=== PATIENT | male | born 1960 | race Caucasian/White ===

== ENCOUNTER 2018-08-05 13:12 | Emergency (ER) | payer OTHER, SELFPAY ==
[2018-08-05 13:13] VITALS: BP 129/72; PULSE 88; RESP 16; TEMP 37.1; O2SAT 94; BMI 33.2
--- NOTE | 2018-08-05 13:47 | CT_ITS ---
STUDY: CT ABDOMEN AND PELVIS WITH CONTRAST REASON FOR EXAM: Male, 58 years old. Lower abdominal pain RADIATION DOSAGE (If Supplied By Facility): CTDIvol = ( 15.02 ) mGy, DLP = ( 1220.42 ) mGycm TECHNIQUE: Transaxial images were obtained from the dome of the diaphragm to the symphysis pubis without oral contrast. 100 IV Isovue 300 was administered. Sagittal and coronal images were reconstructed. Individualized dose optimization techniques were used for this CT. COMPARISON: None. FINDINGS: The visualized lung bases are unremarkable. The visualized portions of the heart are within normal limits. There is decreased attenuation of the liver consistent with steatosis. Normal gallbladder and extrahepatic biliary system. Normal spleen. Normal pancreas. Normal bilateral adrenal glands. Normal right kidney. Normal left kidney. Normal visualized stomach. Normal small intestine. Normal colon. There is marked diffuse constipation. There is non-visualization of the appendix. Mild aortic calcifications. Normal inferior vena cava. Normal retroperitoneum. Normal urinary bladder. Normal abdominal wall. Normal osseous structures. CT/Abdomen/Pelvis W IV Cont ONLY IMPRESSION: No acute abdominal or pelvic pathology. Marked diffuse constipation. Electronically Signed: Maximus Venegas, at 15:43 EDT Tel , Service support ,
[2018-08-05] MEDS: Ondansetron 4 MG/2 ML Vial IV (14:15)
[2018-08-05] MEDS: Morphine 4 MG/ML Syringe IV (14:15)
[2018-08-05] MEDS: 0.9% Normal Saline 1,000 ML 1000 ML IV (14:15)
[2018-08-05 14:31] LABS: Absolute Lymphocyte Count 1.92 X10^3/ul (0.83-4.51); Absolute Neutrophil Count 5.5 X10^3/uL (2.0-7.7); Basophil# 0.03 X10^3/uL; Basophil% 0.4 % (0-1); Eosinophils% 1.2 % (0-5); Hematocrit 47.3 % (40-54); Hemoglobin 15.1 g/dl (13.0-16.5); Lymphocyte # 1.92 X10^3/ul (4.0); Lymphocyte % 23.5 % (19-41); Mean Corp Hgb Conc 31.9 g/gl (32-36); Mean Corpuscular Hgb 24.2 pg (27.0-32.0); Mean Corpuscular Volume 75.9 fL (80-94); Mean Platelet Vol. 9.3 fl (6.2-12.0); Monocyte# 0.66 X10^3/uL; Monocyte% 8.1 % (0-10); Neutrophil # 5.45 X10^3/uL (2.7-7.7); Neutrophil % 66.7 % (47-70); POSITIVE COUNT NO; POSITIVE DIFFERENTIAL NO; POSITIVE MORPHOLOGY NO; Platelet Count 276 K/mm3 (150-450); RBC Distribution Width SD 49.9 fl (35.1-43.9); Red Blood Count 6.23 M/mm3 (4.6-6.2); White Blood Count 8.2 K/mm3 (4.4-11.0)
[2018-08-05 14:35] LABS: Bacteria 0 SEEN /hpf (None Seen); Mucous, Urine 0 SEEN /hpf (<or=2+); Red Blood Cells-Urine 0 SEEN /hpf (0-5); Squamous Epithelial Cells - UA 0 SEEN /hpf (0-5); White Blood Cells 0 SEEN /hpf (0-5)
[2018-08-05 14:39] LABS: Anion Gap 8 (5-15); BUN 17 mg/dL (7-18); BUN/Creat Ratio 14.5 RATIO (10-20); Calcium,Total 9.2 mg/dL (8.5-10.1); Chloride 100 mmol/L (98-107); Creatinine, Serum 1.17 mg/dL (0.70-1.30); EST Glomerular Filtration Rate 68 mL/min (>60); Est Glom Filt Rate - Afr Amer 83 mL/min (>60); Estimated Creatinine Clearance 63.62 ml/min; Glucose 159 mg/dL (74-106); Potassium 3.3 mmol/L (3.5-5.1); Sodium Level 137 mmol/L (136-145)
[2018-08-05 14:39] LABS: Color, Urine Yellow (Yellow); Glucose, Dipstick 1000 mg/dl (Normal); Ketone-Dipstick 5 mg/dl (Negative); Leukocyte Esterase-Dipstick Negative /ul (Negative); Nitrite-Dipstick Negative (Negative); Occult Blood-Urine Negative /ul (Negative); Protein-Dipstick Negative (Negative); Specific Gravity, Urine 1.015 (1.002-1.030); Urine Bilirubin Dipstick Negative (Negative); Urine Clarity Clear (Clear); Urine Urobilinogen Normal (Normal)
--- NOTE | 2018-08-05 16:25 | ED.DCSUM_ITS ---
- ER Visit Summary Date of Service: 08/05/18 Chief Complaint: Hernia History of Present Illness: The patient is a 58 M who presents with a concern for hernia. The pain is in his left inguinal region. It does radiate into his left testicle. He never had this before. He does have history of constipation and small stools. He was concerned that he may have a hernia from straining. Does report some paresthesias to the area. He has a history of varicocele and vasectomy with reversal but nothing recently. Denies any other urinary symptoms. Denies rash. Denies any other GI symptoms. Denies fevers. Physical Examination: Afebrile vital signs unremarkable. Patient alert and or iented. No acute distress. Heart regular. Lungs clear. Abdomen soft but tender in the left lower quadrant and inguinal region. Spermatic cord tender to palpation on left side. Testicle nontender. Skin appears normal. Test Results: CBC normal. Potassium 3.3 and glucose 159. Urinalysis unremarkable. CT showed constipation but nothing acute. Emergency Department Course and Treatment: Patient presents with left inguinal pain. His exam is fairly unremarkable. He was treated with fluids, morphine, and Zofran while awaiting results. His CBC, BMP, urinalysis, and CT abdomen and pelvis were unremarkable. I did not feel that he needed a testicular ultrasound. This is not consistent with torsion, epididymitis, tumor, or testicular mass. No sign of UTI. Nothing to suggest prostate pathology. Patient does have some constipation. I believe that his symptoms may be from straining. Will treat with Colace and MiraLAX. He will follow-up with primary care. Return right away for any new or worsening issues. Patient voiced understanding and agreement with the plan. Treatment Plan: As above Disposition: Discharge Impression: 1. Left inguinal pain 2. Constipation This note was generated with [employer] software. It may contain incorrect words, spelling, and punctuation that were not noted in review of the chart prior to signing ED Disposition - Plan for ED Patient: Referrals: Austin Garduno III, MD [Primary Care Provider] -
--- NOTE | 2018-08-05 16:25 | ED.DEP ---
ED Disposition - Plan for ED Patient: Instructions: Treating Constipation Prescriptions: Docusate Sodium [Colace] 100 mg PO DAILY #20 cap Polyethylene Glycol 3350 [Miralax] 17 gm PO DAILY 30 Days #30 packet Referrals: Austin Garduno III, MD [Primary Care Provider] -
[2018-08-05 16:51] VITALS: RESP 18
== END 2018-08-05 16:53 | disposition home or self-care (01) ==
LOC: ED 14:01
PROVIDERS: Emergency Provider Emergency Medicine; Family Provider Family Medicine; PCP Family Medicine
DX: R10.32 Left lower quadrant pain (principal); K59.00 Constipation, unspecified; I10 Essential (primary) hypertension; E11.9 Type 2 diabetes mellitus without complications; Z79.84 Long term (current) use of oral hypoglycemic drugs
CPT/HCPCS: 74177; 80048; 81001; 85025; 96361; 96374; 96375; 99283; J7030; Q9967; A4216; J2405

== ENCOUNTER → 2018-09-23 12:24 | Outpatient (CLI) | payer OTHER, SELFPAY ==
[2018-09-16 08:18] VITALS: BMI 33.0
--- NOTE | 2018-09-23 12:29 | CT_ITS ---
STUDY: CARDIAC CALCIUM SCORING - CT CHEST REASON FOR EXAM: Male, 58 years old. Chest pain. Abnormal stress test. RADIATION DOSAGE (If Supplied By Facility): CTDIvol = ( 23.91 ) mGy, DLP = ( 1072.33 ) mGycm TECHNIQUE: Axial non-enhanced images were acquired through the heart for the sole purpose of measuring coronary artery calcium. Individualized dose optimization techniques were used for this CT. COMPARISON: None. FINDINGS: This portion of the report is being generated solely for the evaluation of noncoronary artery structures which have been assessed on plain another report. The visualized lungs are well-expanded and free of infiltrate or mass. The heart is normal in size. Normal pericardium. There are calcifications in the coronary arteries. Normal visualized mediastinum. Normal visualized mono. Normal visualized pulmonary arteries. Minimal atherosclerotic changes of the visualized abdominal aorta without aneurysm. Mild degenerative changes of the thoracic spine. Normal visualized abdomen. IMPRESSION: 1. Atherosclerotic changes of coronary arteries and thoracic aorta. 2. No other visualized anatomic abnormality. Electronically Signed: Marcin Martini DO at 17:56 EDT Tel [phone], Service support , STUDY: CARDIAC CALCIUM SCORING - CT CHEST REASON FOR EXAM: Male, 58 years old. Chest pain. Abnormal stress test. RADIATION DOSAGE (If Supplied By Facility): CTDIvol = ( 23.91 ) mGy, DLP = ( 1072.33 ) mGycm TECHNIQUE: Axial non-enhanced images were acquired through the heart for the sole purpose of measuring coronary artery calcium. Individualized dose optimization techniques were used for this CT. COMPARISON: None. FINDINGS: This portion of the report is being generated solely for the evaluation of noncoronary artery structures which have been assessed on plain another report. The visualized lungs are well-expanded and free of infiltrate or mass. The heart is normal in size. Normal pericardium. There are calcifications in the coronary arteries. Normal visualized mediastinum. Normal visualized mono. Normal visualized pulmonary arteries. Minimal atherosclerotic changes of the visualized abdominal aorta without aneurysm. Mild degenerative changes of the thoracic spine. Normal visualized abdomen. IMPRESSION: 1. Atherosclerotic changes of coronary arteries and thoracic aorta. 2. No other visualized anatomic abnormality. Addended on 09/24/2018 7:35:18 AM by Angel Luis Umaña. STUDY: CARDIAC CALCIUM SCORING - CT CHEST- CTA CORONARY REASON FOR EXAM: Male, 58 years old. Chest pain. Abnormal stress test. RADIATION DOSAGE (If Supplied By Facility): CTDIvol = ( 23.91 ) mGy, DLP = ( 1072.33 ) mGycm TECHNIQUE: Axial non-enhanced images were acquired through the heart for the sole purpose of measuring coronary artery calcium. Individualized dose optimization techniques were used for this CT. COMPARISON: None. FINDINGS: Visualized surrounding anatomy: Normal. Left Main Coronary Artery: 4.3 Left Anterior Descending Artery: 142 Left Circumflex Artery: 11.1 Right Coronary Artery: 11.3 Other: Total Calcium Score: 169 IMPRESSION: A Calcium Score of 169 places the patient in the approximate 59 percentile, based on the [place] data calculator. STUDY: CTA CORONARY TECHNIQUE: Tomographic images were obtained of the heart and chest with a 64 detector row scanner using slice thicknesses of less than 1 mm. was injected in the arm. Post-processing of the angiographic images was performed, with multiplanar reformation and 3D reconstruction. Individualized dose optimization techniques were used for this CT. TECHNICAL QUALITY: Excellent COMPARISON: None. CORONARY ANGIOGRAPHY: Coronary CT Angiogram Descriptors of Atherosclerosis: Stenosis: None (0%) Mild (< 50%) Moderate (50-70%) Severe (70-90%) Subtotal/Total Occlusion (90-100%) Non-Evaluable Plaque Characteristics: None Non-Calcified (Soft) Calcified Mixed FINDINGS: LEFT MAIN CORONARY ARTERY: Left Main Coronary Artery CT Angiogram: Free of significant atherosclerosis. LEFT ANTERIOR DESCENDING ARTERY: Left Anterior Descending (LAD) Coronary Artery CT Angiogram: Proximal 1/3: Free of significant atherosclerosis. Middle 1/3: Moderate calcified atherosclerosis causing borderline-significant (50-70%) eccentric stenosis. Distal 1/3: Free of significant atherosclerosis. 1st Diagonal Branch: Free of significant atherosclerosis. 2nd Diagonal Branch: Free of significant atherosclerosis. LEFT CIRCUMFLEX ARTERY: Left Circumflex (LCx) Coronary Artery CT Angiogram: Proximal 1/2: Free of significant atherosclerosis. Distal 1/2: Free of significant atherosclerosis. High Lateral Branches: Free of significant atherosclerosis. Obtuse Marginal Branches: Free of significant atherosclerosis. I-L Branches: NA. PDA: NA. RIGHT CORONARY ARTERY: Right Coronary Artery (RCA) CT Angiogram: Proximal 1/3: Free of significant atherosclerosis. Middle 1/3: Free of significant atherosclerosis. Distal 1/3: Free of significant atherosclerosis. PDA: Free of significant atherosclerosis. I-L Branches: Free of significant atherosclerosis. CORONARY ARTERY DOMINANCE: Right NONCORONARY CARDIAC STRUCTURE: CARDIAC CHAMBERS: Normal CARDIAC VALVES: Normal. PERICARDIUM: Normal. GREAT VESSELS: Normal. MYOCARDIAL PERFUSION: There are no myocardial perfusion abnormalities demonstrated. VISUALIZED LUNG PARENCHYMA, MEDIASTINUM AND CHEST WALL: Normal. CT/Limited Chest CT w/CCTA IMPRESSION: LEFT ANTERIOR DESCENDING ARTERY MIDDLE ONE THIRD DEMONSTRATES: Moderate calcified atherosclerosis causing borderline-significant (50-70%) eccentric stenosis. Electronically Signed: Natalie Umaña, at 7:47 EDT Tel , Service support ,
[2018-09-23 12:34] VITALS: BP 134/80; PULSE 80; RESP 16; O2SAT 96; BMI 32.3
[2018-09-23] MEDS: Nitroglycerin SL (ED/IMG/CATH) 0.4 MG TABLET SUBLINGUAL (13:06)
[2018-09-23 13:18] VITALS: BP 109/83; PULSE 80; RESP 16; O2SAT 95
--- NOTE | 2018-09-23 16:36 | CA.SCORE ---
Calcium Scoring Date of Study:: 09/23/18 Coronary Calcium Scoring: High-resolution Computed Tomographic imaging of the chest was performed on [09/23/2018 ], with particular attention paid to the coronary arteries. Images from the examination were analyzed for the presence and extent of coronary artery calcification , using coronary calcium quantification software. The patient tolerated the procedure well and there were no complications. The results of the coronary calcification analysis are provided below. - Findings Left Main (LM): 4 Left Anterior Descending (LAD): 142 Left Circumflex (LCX): 11 Right Coronary Artery (RCA): 11 Total Agatston Score: 168 Percentile Rankin - Conclusion Calcium Scoring Interpretation: Calcium Score Interpretation 0 No identifiable atherosclerotic plaque. Very low cardiovascular disease risk. <5% chance of presence coronary artery disease A Negative Examination 1-10 Minimal Plaque burden. Significant coronary artery disease very unlikely. 11-100 Mild plaque burden. Likely mild or minimal coronary atherosclerosis. 101-400 Moderate plaque burden Moderate non-obstructive coronary artery disease highly likely. Over 400 Extensive plaque burden. High likelihood of at least one significant coronary stenosis (>50% diameter) Calcium Score: 101 - 400 Moderate non-obstructive coronary artery disease highly like - There is moderate likelihood of nonobstructive coronary disease noted. This places the patient at the 50th percentile. A full evaluation of cardiac risk should include assessment of all conventional risk factors.
== END ==
PROVIDERS: Family Provider Family Medicine; PCP Family Medicine; Referring Provider Internal Medicine Cardiovascular Disease; Visit Provider Internal Medicine Cardiovascular Disease
DX: R07.9 Chest pain, unspecified (principal); R94.39 Abnormal result of other cardiovascular function study
CPT/HCPCS: 75571; 75574; 76380; Q9967; A4216

== ENCOUNTER 2018-10-22 12:49 | Emergency (ER) | payer OTHER, SELFPAY ==
[2018-09-23 12:34] VITALS: BMI 32.3
[2018-10-22 12:50] VITALS: BP 147/74; PULSE 79; RESP 18; TEMP 37.6; O2SAT 95; BMI 31.8
[2018-10-22 13:09] VITALS: BP 148/93; PULSE 73; RESP 16; O2SAT 98
--- NOTE | 2018-10-22 13:19 | CT_ITS ---
STUDY: CT ABDOMEN AND PELVIS WITH CONTRAST REASON FOR EXAM: Male, 58 years old. Several week history of epigastric pain with nausea and weight loss. RADIATION DOSAGE (If Supplied By Facility): CTDIvol = ( 15.43 ) mGy, DLP = ( 1004.95 ) mGycm TECHNIQUE: Transaxial images were obtained from the dome of the diaphragm to the symphysis pubis without oral contrast. 100 IV Isovue 300 was administered. Sagittal and coronal images were reconstructed. Individualized dose optimization techniques were used for this CT. COMPARISON: Comparison is made with prior study dated August 05, 2018. FINDINGS: The visualized lung bases are unremarkable. The visualized portions of the heart are within normal limits. There is decreased attenuation of the liver consistent with steatosis. Normal gallbladder and extrahepatic biliary system. Normal spleen. Normal pancreas. Normal bilateral adrenal glands. Normal right kidney. Normal left kidney. There is a small hiatal hernia. Normal small intestine. Normal colon. There is non-visualization of the appendix. There is scattered atherosclerotic calcification of the abdominal aorta, without a demonstrated aneurysm. Normal inferior vena cava. Normal retroperitoneum. Normal urinary bladder. The prostate measures 4.9 cm x 4 cm. Within it, there is a 1.6 cm x 1.5 cm nodule of increased density. Clinical correlation is recommended. There is a small umbilical hernia containing fat. Normal osseous structures. CT/Abdomen/Pelvis W IV Cont ONLY IMPRESSION: Fatty infiltration of the liver. Focal central nodule within the prostate as described. Clinical correlation is recommended. Electronically Signed: Josef Walker, at 14:35 EDT , Service support ,
--- NOTE | 2018-10-22 13:19 | EKG12_ITS ---
Test Reason : ABD PAIN Blood Pressure : / mmHG Vent. Rate : 067 BPM Atrial Rate : 067 BPM P-R Int : 200 ms QRS Dur : 080 ms QT Int : 400 ms P-R-T Axes : 038 030 021 degrees QTc Int : 422 ms Normal sinus rhythm with sinus arrhythmia Normal ECG Confirmed by JOSE HYDE, RONAL ([id number]), online content editor FAHEEM SAUER ([id number]) on 10/23/2018 12:14:02 PM Referred By: DARSHAN Confirmed By:RONAL GARCIA MD
--- NOTE | 2018-10-22 13:26 | RAD_ITS ---
STUDY: X-RAY CHEST REASON FOR EXAM: Male, 58 years old. Epigastric pain. Nausea and vomiting. TECHNIQUE: Single AP portable view of the chest. COMPARISON: None. FINDINGS: The lungs are clear and expanded. Scattered calcified granuloma. There is no demonstrated pleural abnormality. Normal size heart. Normal mediastinum and mono. Normal visualized pulmonary arteries. Normal visualized aortic arch and descending thoracic aorta. There are degenerative changes of the visualized thoracic spine. Normal visualized ribs, clavicles, and shoulders. There is no demonstrated abnormality of the visualized soft tissue structures of the upper abdomen. RAD/Chest 1 View (Portable) IMPRESSION: Normal x-ray examination of the chest. Electronically Signed: Josef Walker, at 13:56 EDT , Service support ,
[2018-10-22 13:29] LABS: Absolute Lymphocyte Count 1.26 X10^3/ul (0.83-4.51); Absolute Neutrophil Count 4.7 X10^3/uL (2.0-7.7); Basophil# 0.02 X10^3/uL; Basophil% 0.3 % (0-1); Eosinophil# 0.05 X10^3/uL; Eosinophils% 0.8 % (0-5); Hematocrit 44.4 % (40-54); Hemoglobin 14.7 g/dl (13.0-16.5); Lymphocyte # 1.26 X10^3/ul (4.0); Lymphocyte % 19.2 % (19-41); Mean Corp Hgb Conc 33.1 g/gl (32-36); Mean Corpuscular Hgb 25.6 pg (27.0-32.0); Mean Corpuscular Volume 77.4 fL (80-94); Mean Platelet Vol. 9.3 fl (6.2-12.0); Monocyte# 0.56 X10^3/uL; Monocyte% 8.5 % (0-10); Neutrophil # 4.65 X10^3/uL (2.7-7.7); Neutrophil % 70.9 % (47-70); POSITIVE COUNT NO; POSITIVE DIFFERENTIAL NO; POSITIVE MORPHOLOGY NO; Platelet Count 263 K/mm3 (150-450); RBC Distribution Width CV 18.7 % (11.6-14.6); RBC Distribution Width SD 51.1 fl (35.1-43.9); Red Blood Count 5.74 M/mm3 (4.6-6.2); White Blood Count 6.6 K/mm3 (4.4-11.0)
[2018-10-22] MEDS: Ondansetron 4 MG/2 ML Vial IV (13:33)
[2018-10-22] MEDS: 0.9% Normal Saline 1,000 ML 1000 ML IV (13:33)
[2018-10-22] MEDS: Mag Hydrox/Al Hydrox/Simeth 30 ML UDC PO (13:33)
[2018-10-22 13:44] LABS: ALB/GLOB Ratio 1.1 RATIO (0.9-2.4); AST(SGOT) 21 U/L (15-37); Alanine Aminotransfer ALT/SGPT 34 U/L (16-61); Albumin, Serum 4.3 g/dL (3.2-5.0); Alkaline Phosphatase 72 U/L (45-117); Anion Gap 10 (5-15); BUN 17 mg/dL (7-18); BUN/Creat Ratio 14.9 RATIO (10-20); Calcium,Total 9.4 mg/dL (8.5-10.1); Chloride 101 mmol/L (98-107); Creatinine, Serum 1.14 mg/dL (0.70-1.30); EST Glomerular Filtration Rate 70 mL/min (>60); Est Glom Filt Rate - Afr Amer 85 mL/min (>60); Estimated Creatinine Clearance 65.29 ml/min; Globulin 3.9 g/dL (2.2-4.2); Glucose 126 mg/dL (74-106); Lipase 141 U/L (73-393); Potassium 3.8 mmol/L (3.5-5.1); Protein, Total 8.2 g/dL (6.4-8.2); Sodium Level 137 mmol/L (136-145)
[2018-10-22 15:23] VITALS: BP 155/82; PULSE 62; RESP 18; O2SAT 95
--- NOTE | 2018-10-22 15:36 | ED.VISSUMM ---
- ER Visit Summary Date of Service: 10/22/18 Chief Complaint: Nausea History of Present Illness: The patient is a 58 M with nausea increasing over the past month. Associated with epigastric pain that radiates to his back. Worse at nighttime. He reports a 10 pound weight loss in 3 weeks. He had not EGD 6 months ago which was limited because of gastric contents. He was diagnosed with gastroparesis. Denies any bleeding. Denies any bowel movement changes. Denies any shortness of breath or lightheadedness. He had a stress test in the last few months which he said was unremarkable. He has no history of coronary disease. Denies any history of aortic disease or venous thrombi embolism. Physical Examination: Afebrile and vital signs unremarkable. Patient appears uncomfortable but not toxic or distressed. He does have some epigastric tenderness but no guarding or rebound. Heart regular. Lungs clear. Skin appears normal without jaundice, pallor, or diaphoresis. Test Results: EKG showed sinus rhythm at a rate of 67. No sign of acute ischemia or infarction pattern. Troponin normal. Chest x-ray normal. CT abdomen showed fatty liver and a prostate nodule. CBC, CMP, lipase unremarkable. Emergency Department Course and Treatment: Patient treated with GI cocktail and Zofran. He also received IV fluids. Work-up as above was fairly unremarkable. I believe the patient may have continued symptoms of gastroparesis. There is no evidence of malignancy, obstruction, or other GI pathology. Patient will follow-up with Dr. Bowser. Will prescribe a course of Zofran and Phenergan. Nothing to suggest cardiac, vascular, respiratory pathology. He does have an incidental prostate nodule and was referred to his primary care doctor for follow-up. He is not having symptoms. Treatment Plan: As above Disposition: Discharge Impression: 1. Epigastric pain 2. Prostate nodule This note was generated with [employer] dictation software. It may contain incorrect words, spelling, and punctuation that were not noted in review of the chart prior to signing ED Disposition - Plan for ED Patient: Referrals: Austin Garduno III, MD [Primary Care Provider] -
[2018-10-22] MEDS: proMETHazine 25 MG/ML Syringe 6.25 MG IV (15:37)
[2018-10-22 15:38] VITALS: BP 147/83; PULSE 70; RESP 18
--- NOTE | 2018-10-22 15:39 | ED.DEP ---
ED Disposition - Plan for ED Patient: Instructions: Gastroparesis Prescriptions: proMETHazine tablet [Phenergan] 25 mg PO Q6H PRN PRN #10 tab PRN Reason: Nausea Prescription Printed Ondansetron [Zofran Odt] 4 mg PO Q8H PRN PRN #10 tab PRN Reason: Nausea Prescription Printed Referrals: Austin Garduno III, MD [Primary Care Provider] - Yo Bowser MD [STAFF PHYSICIAN] - Additional Instructions: follow up with your primary doctor regarding your prostate nodule
== END 2018-10-22 15:52 | disposition home or self-care (01) ==
LOC: ED 13:23
PROVIDERS: Emergency Provider Emergency Medicine; Family Provider Family Medicine; PCP Family Medicine
DX: R10.13 Epigastric pain (principal); N40.2 Nodular prostate without lower urinary tract symptoms; R11.0 Nausea; M54.9 Dorsalgia, unspecified; K76.0 Fatty (change of) liver, not elsewhere classified; K21.9 Gastro-esophageal reflux disease without esophagitis; E11.43 Type 2 diabetes mellitus with diabetic autonomic (poly)neuropathy; K31.84 Gastroparesis; I10 Essential (primary) hypertension; Z79.82 Long term (current) use of aspirin; Z79.84 Long term (current) use of oral hypoglycemic drugs; Z79.899 Other long term (current) drug therapy
CPT/HCPCS: 71045; 74177; 80053; 83690; 84484; 85025; 93005; 96361; 96374; 96375; 99285; J7030; Q9967; A4216; J2405

== ENCOUNTER → 2020-11-13 09:52 | Outpatient (CLI) | payer OTHER, SELFPAY ==
[2019-04-05 09:52] VITALS: BMI 33.0
[2020-11-13 12:12] LABS: PSA,Total - Annual Screen 1.08 ng/mL (0.00-4.00)
== END ==
PROVIDERS: Referring Provider Urology; Visit Provider Urology
DX: Z12.5 Encounter for screening for malignant neoplasm of prostate (principal)
CPT/HCPCS: 36415; 84153; G0103

== ENCOUNTER → 2020-12-18 | Outpatient (CLI) | payer OTHER, SELFPAY | END | disposition home or self-care (01) | PROVIDERS: Referring Provider Physician Assistant Surgical; Visit Provider Physician Assistant Surgical | DX: R69 Illness, unspecified (principal) | CPT/HCPCS: 87635; U0003 ==

== ENCOUNTER → 2025-02-19 | Outpatient (CLI) | payer OTHER, SELFPAY ==
--- NOTE | 2025-02-19 07:39 | US_ITS ---
PROCEDURE: THYROID 02/19/2025 REASON FOR EXAM: THYROID NODULE TECHNIQUE: Procedure Code: USTHY Modality: US Procedure: THYROID COMPARISON: None FINDINGS: Right thyroid lobe size: 3.6 cm x 0.7 cm x 0.6 cm Left thyroid lobe size: 2.9 cm x 0.9 cm x 0.5 cm Isthmus: 0.2 cm Background parenchymal echotexture is homogeneous. Nodules: No thyroid nodule is seen. US/Thyroid IMPRESSION: No thyroid nodules. RECOMMENDATION: Based on most suspicious nodule. Nodule size = largest diameter Only evaluate nodule if =>5 mm. Growth > 20% in 2 dimensions = worsening. Follow up to 4 nodules. Recommend biopsy for no more than 2 nodules. Reading Location: [id number]
--- OUTSIDE RECORDS SUMMARY | 2025-02-19 07:40 | XMS RPT_ITS | CCD ---
Author Organization [facility] Care Team Providers Care Foundry Technician Name Role Phone CHELO HARVEY (LOGISTICS TECH) Unavailable Unavailable Bladilia WIRE FRAME LAMPSHADE MAKER.JULIANNE WEATHERS Daniel Primary Care Provider Cindi Nunez MD Primary Care Provider Cindi Nunez MD Primary Care Provider Cindi Nunez MD Primary Care Provider Aris WIRE FRAME LAMPSHADE MAKER.JULIANNE WEATHERS Daniel Primary Care Provider Shaan GARRETT MD, Frank A Primary Care Provider Nikki vailable Nessf WIRE FRAME LAMPSHADE MAKER.[place] WEATHERS Unavailable Jamil WIRE FRAME LAMPSHADE MAKER.João WEATHERS Unavailable Care Physician, No Primary Referring Provider Un available Dr. Irene Amanda MD Attending Provider [phone] [facility] [place] Primary Care Provider UnavailSHARA Cat Referring Unavailable CINDI NUNEZ Primary Care Unavailable CINDI NUNEZ Primary Care Unavailable Irene Amanda Attending Unavailable [facility] [place] Primary Care Unavailable Care Physician, No Primary Referring Unava ilable Shelly Villar Referring Unavailable Shelly Villar Attending Unavailable [facility] [place] Primary Care Unavailable Allergies Allergy Classification Reported Allergen(s) Allergy Type Date of Onset Reaction(s) Facility (20 sources) albiglutide; Translations: [ALBIGLUTIDE] Drug Allergy 7 GI Upset [facility] Work Phone: (20 sources) Amitriptyline; Translations: [AMITRIPTYLINE] Drug Allergy 1 Mental Status Change [facility] (20 sources) atomoxetine; Translations: [ATOMOXETINE HCL] Drug Allergy 9 Other: See Comments [facility] (20 sources) gabapentin; Translations: [GABAPENTIN] Drug Allergy 3 Mental Status Change [facility] (20 sources) Warfarin; Translations: [WARFARIN SODIUM] Drug Allergy 1 Rash [facility] (11 sources) Environmental [Other] Propensity to adverse reactions 1 Other: See Comments [facility] (8 sources) Seasonal allergy; Translations: [SEASONAL ALLERGIES] Allergy to substance 4 Other: See Comments [facility] Work Phone: (4 sources) Penicillins; Translations: [PENICILLINS] Drug Allergy 4 Diarrhea, Other: See Comments [facility] (1 source) lurasidone Drug Allergy 1 Other [facility] Comment on above: increased anxiety (1 source) Warfarin Drug Allergy 1 Rash [facility] (1 source) albiglutide Drug Allergy 5 [facility] Repository (1 source) gabapentin Drug Allergy 5 [facility] Repository (1 source) lurasidone Drug Allergy 5 [facility] Repository (1 source) Warfarin Drug Allergy 5 [facility] Repository Medications Current Medications Medication Drug Class(es) Dates Sig (Normalized) Sig (Original) amoxicillin 875 mg / clavulanate 125 mg oral tablet (2 sources) Penicillin-class Antibacterial Start: 12-17-2023 End: 12-27-2023 take 1 tablet by mouth twice daily amoxicillin-clavu lanate potassium (AUGMENTIN) 875-125 mg per tablet Take 1 tablet by mouth two times a day for 10 days. 20 tablet 12/17/2023 12/27/2023 Active atorvastatin 80 mg oral tablet (20 sources) HMG-CoA Reductase Inhibitor Start: 09-27-2022 End: 12-18-2023 take 1 tablet by mouth once daily at bedtime for hyperlipidemia atorvastatin (LIPITOR) 80 mg tablet Take 1 tablet by mouth daily at bedtime. For cholesterol. 30 tablet 11/18/2023 Active Start: 07-16-2021 End: 08-02-2022 atorvastatin (LIPITOR) 80 mg tablet TAKE 1 TABLET DAILY AT BEDTIME FOR CHOLESTEROL 90 tablet 3 07/16/2021 08/02/2022 Discontinued Start: 06-29-2019 End: 07-14-2021 atorvastatin (LIPITOR) 80 mg tablet TAKE 1 TABLET DAILY AT BEDTIME FOR CHOLESTEROL 90 tablet 3 06/24/2020 07/14/2021 Discontinued Start: 06-01-2016 End: 12-12-2020 take 2 tablets by mouth at bedtime Atorvastatin 40 MG tablet Discontinued 80 mg PO AT BEDTIME June 01, 2016 1:00am December 12, 2020 1:22pm Comment on above: TAKE 1 TABLET DAILY AT BEDTIME FOR CHOLESTEROL take 1 tablet by aniya th at bedtime for cholesterol Blood Glucose Control, Normal soln (1 source) Start: 02-12-20 End: 02-13-20 Blood Glucose Control, Normal soln Indications: Type 2 diabetes mellitus without complication, without long-term current use of insulin ([facility]) Test controls as needed. 1 Each 5 02/11/2022 02/12/2022 Active Comment on above: Test controls as nee ded. Blood-Glucose Meter (1 source) Start: 02-12-20 End: 02-13-20 Blood-Glucose Meter Indications: Type 2 diabetes mellitus without complication, without long-term current use of insulin ([facility]) Test One time a day. Insulin Dep? No E11.9 DM 2 1 Each 0 02/11/2022 02/12/2022 Active Comment on above: Test One time a day. Insulin Dep? No E11.9 DM 2 Blood-Glucose Meter (FREESTYLE FREEDOM LITE) monitoring kit (1 source) Start: 01-29-20 End: 01-30-20 Blood-Glucose Meter (FREESTYLE FREEDOM LITE) monitoring kit Indications: Type 2 diabetes mellitus without complication, without long-term current use of insulin ([facility]) 1 Each as needed for up to 1 day. 1 Each 0 01/28/2022 01/29/2022 Active Comment on above: 1 Each as needed for up to 1 day. cephalexin 500 mg oral capsule (1 source) Cephalosporin Antibacterial Start: 09-16-19 End: 09-21-19 take 1 capsule by mouth four times daily cephALEXin (KEFLEX) 500 mg capsule Take 1 capsule by mouth four times daily for 5 days. 20 capsule 0 09/16/2023 09/21/2023 Active cetirizine hydrochloride 10 mg oral tablet (20 sources) Histamine-1 Receptor Antagonist Start: 09-24-19 End: 12-18-19 take 1 tablet by mouth once daily cetirizine (ZYRTEC) 10 mg tablet Take 1 tablet by mouth once daily. 90 tablet 3 11/18/2023 Active Start: 07-16-2021 End: 08-02-2022 take 1 tablet by mouth once daily cetirizine (ZYRTEC) 10 mg tablet Take 1 tablet by mouth once daily. 90 tablet 3 07/16/2021 08/02/2022 Discontinued Start: 06-29-2019 End: 07-14-2021 take 1 tablet by mouth once daily cetirizine (ZYRTEC) 10 mg tablet Take 1 tablet by mouth once daily. 90 tablet 3 06/24/2020 07/14/2021 Discontinued Start: 06-01-2016 End: 12-12-2020 take 1 capsule by mouth once daily Cetirizine 10 MG capsule Discontinued 10 mg PO DAILY June 01, 2016 1:00am December 12, 2020 1:22pm Comment on above: Take 1 tablet by aniya th once daily. cholecalciferol 0.05 mg oral capsule (20 sources) Vitamin D Start: 09-23-2022 End: 12-18-2023 take 1 capsule by mouth once daily Cholecalciferol, Vitamin D3, 50 mcg (2,000 unit) cap Take 1 capsule by mouth once daily. 30 capsule 11/18/2023 Active Start: 07-16-2021 End: 08-02-2022 take 1 capsule by mouth once daily Cholecalciferol, Vitamin D3, 50 mcg (2,000 unit) cap Take 1 capsule by mouth once daily. 90 capsule 3 07/16/2021 08/02/2022 Discontinued Start: 06-29-2019 End: 07-14-2021 take 1 capsule by mouth once daily Cholecalciferol, Vitamin D3, 50 mcg (2,000 unit) cap Take 1 capsule by mouth once daily. 90 capsule 3 06/24/2020 07/14/2021 Discontinued Start: 09-14-2018 End: 12-12-2020 take 1 tablet by mouth once daily Cholecalciferol (Vitamin D3) 3,000 unit tablet Discontinued 3000 U PO DAILY September 14, 2018 12:00am December 12, 2020 1:22pm Comment on above: Take 1 capsule by [facility] once daily. clindamycin 150 mg oral capsule (1 source) Lincosamide Antibacterial Start: End: take 3 capsules by mouth three times daily clindamycin (CLEOCIN) 150 mg capsule Take 3 capsules by mouth three times a day for 7 days. 63 capsule 12/18/2023 12/25/2023 Active CPAP (20 sources) Start: 016 CPAP Initiate CPAP @ 5-15 cm of water with humidification. Mask (per patient preference) optional chin strap (if indicated) , filters, tubing, humidifier and lifetime supplies. 1 Device 0 01/03/2016 Active Comment on above: Initiate CPAP @ 5-15 cm of water with humidification. Mask (per patient preference) optional chin strap (if indicated) , filters, tubing, humidifier and lifetime supplies. cyclobenzaprine hydrochloride 10 mg oral tablet (20 sources) Muscle Relaxant Start: 021 End: take 1 tablet by mouth three times daily as needed for pain cyclobenzaprine (FLEXERIL) 10 mg tablet Indications: Acute left-sided low back pain with left-sided sciatica Take 1 tablet by mouth three times a day as needed for muscle spasm or pain. 90 tablet 1 11/18/2023 Active Comment on above: Take 1 tablet by [facility] three times daily as needed for Muscle Spasm or Pain. empagliflozin 25 mg oral tablet (20 sources) Sodium-Glucose Cotransporter 2 Inhibitor Start: 023 End: take 1 tablet by mouth once daily, then take 1 tablet by mouth once daily in the morning empagliflozin (JARDIANCE) 25 mg tablet Take 1 tablet by mouth once daily. Take 1 tablet once daily in the morning 30 tablet 11/18/2023 Active Start: 07-16-2021 End: 10-16-2021 JARDIANCE 25 mg tablet Indic ations: Diabetes mellitus (HCC) TAKE 1 TABLET DAILY 90 tablet 3 10/16/2021 Active Start: 08-05-2018 End: 07-14-2021 take 1 tablet by mouth once daily empagliflozin (JARDIANCE) 25 mg tablet Indications: Diabetes mellitus (HCC) Take 1 tablet by mouth once daily. 90 tablet 3 06/24/2020 07/14/2021 Discontinued Comment on above: Take 1 tablet by aniya th once daily. TAKE 1 TABLET DAILY glimepiride 4 mg oral tablet (20 sources) Sulfonylurea Start: 09-23-2022 End: 11-18-2023 glimepiride (AMARYL) 4 mg tablet Indications: Type 2 diabetes mellitus without complication, without long-term current use of insulin (HCC) TAKE 1/2 TABLET DAILY WITH BREAKFAST 45 tablet 3 11/18/2023 Active Start: 07-16-2021 End: 08-02-2022 glimepiride (AMARYL) 4 mg ta blet Indications: Type 2 diabetes mellitus without complication, without long-term current use of insulin (HCC) TAKE 1/2 TABLET DAILY WITH BREAKFAST 30 tablet 1 08/02/2022 Active Start: 07-02-2019 End: 07-14-2021 glimepiride (AMARYL) 4 mg ta blet TAKE 1/2 TABLET DAILY WITH BREAKFAST 90 tablet 3 06/24/2020 07/14/2021 Discontinued Start: 09-14-2018 End: 12-18-2023 take 1 tablet by mouth once daily at breakfast glimepiride (AMARYL) 4 mg tablet Take 1 tablet by mouth daily with breakfast. 30 tablet 11/18/2023 Active Start: 06-01-2016 End: 09-14-2018 take 2 tablets by mouth once daily Glimepiride 2 MG tablet Discontinued 4 mg PO DAILY June 01, 2016 1:00am September 14, 2018 9:05am Comment on above: TAKE 1/2 TABLET ASHOK Y WITH BREAKFAST hydroCHLOROthiazide 12.5 mg oral capsule (20 sources) Thiazide Diuretic Start: 2022 End: 2023 take 1 capsule by mouth once daily hydroCHLOROthiazide 12.5 mg capsule Take 1 capsule by mouth once daily. 30 capsule 11/18/2023 Active Start: 07-16-2021 End: 08-02-2022 take 1 capsule by mouth once daily hydroCHLOROthiazide 12.5 mg capsule Take 1 capsule by mouth once daily. 90 capsule 3 07/16/2021 08/02/2022 Discontinued Start: 07-24-2013 End: 07-14-2021 take 1 capsule by mouth once daily hydroCHLOROthiazide 12.5 mg capsule Take 1 capsule by mouth once daily. 90 capsule 3 06/24/2020 07/14/2021 Discontinued Comment on above: Take 1 capsule by [facility] once daily. ketoconazole 20 mg/ml topical cream (7 sources) Azole Antifungal Start: 05-13-19 ketoconazole (NIZORAL) 2 % cream Indications: Seborrheic dermatitis Apply to affected area once daily. 30 g 2 05/13/2023 Active Comment on above: Apply to affected ar ea once daily. levothyroxine sodium 0.15 mg oral tablet (20 sources) l-Thyroxine Start: 09-24-19 End: 12-18-19 take 1 tablet by mouth once daily before breakfast levothyroxine (SYNTHROID) 150 mcg tablet Take 1 tablet by mouth daily before breakfast. 30 tablet 11/18/2023 Active Start: 07-16-2021 End: 08-02-2022 levothyroxine (SYNTHROID) 15 0 mcg tablet TAKE 1 TABLET DAILY ON AN EMPTY STOMACH FOR THYROID 90 tablet 3 07/16/2021 08/02/2022 Discontinued Start: 06-29-2019 End: 07-14-2021 levothyroxine (SYNTHROID) 15 0 mcg tablet TAKE 1 TABLET DAILY ON AN EMPTY STOMACH FOR THYROID 90 tablet 3 06/24/2020 07/14/2021 Discontinued Start: 07-24-2013 Levothyroxine 88 MCG tablet Active 150 ug PO DAILY July 24, 2013 12:00am Comment on above: TAKE 1 TABLET DAILY ON AN EMPTY STOMACH FOR THYROID lisinopril 10 mg oral tablet (20 sources) Angiotensin Converting Enzyme Inhibitor Start: 09-23-2022 End: 12-18-2023 take 1 tablet by mouth once daily lisinopril (ZESTRIL) 10 mg tablet Take 1 tablet by mouth once daily. 30 tablet 11/18/2023 Active Start: 07-16-2021 End: 10-16-2021 lisinopril (ZESTRIL, PRINIVI L) 10 mg tablet Indications: Essential hypertension, benign TAKE 1 TABLET DAILY 90 tablet 3 10/16/2021 Active Start: 06-29-2019 End: 07-14-2021 take 1 tablet by mouth once daily lisinopril (ZESTRIL, PRINIVIL) 10 mg tablet Indications: Essential hypertension, benign Take 1 tablet by mouth once daily. 90 tablet 3 06/24/2020 07/14/2021 Discontinued Comment on above: Take 1 tablet by aniya th once daily. TAKE 1 TABLET DAILY metFORMIN hydrochloride 500 mg oral tablet (20 sources) Biguanide Start: 07-16-2021 End: 12-18-2023 take 1 tablet by mouth twice daily metFORMIN (GLUCOPHAGE) 500 mg tablet Take 1 tablet by mouth two times a day. 60 tablet 11/18/2023 Active Start: 06-29-2019 End: 07-14-2021 take 1 tablet by mouth twice daily at mealtime metFORMIN (GLUCOPHAGE) 500 mg tablet Take 1 tablet by mouth twice daily with meals. 180 tablet 3 06/24/2020 07/14/2021 Discontinued Start: 06-01-2016 take 1 tablet by aniya th twice daily Metformin 500 MG tablet,ER grzegorz.retention 24 hr Active 500 mg PO TWICE A DAY June 01, 2016 1:00am Comment on above: Take 1 tablet by aniya th twice daily with meals. methylPREDNISolone (2 sources) Corticosteroid Start: 09-16-2023 End: 09-22-2023 methylPREDNISolone (MEDROL, BERENICE,) 4 mg Dose-Pack Follow dosing instructions, take with food. 21 tablet 0 09/16/2023 09/22/2023 Active Start: 06-22-2020 End: 06-28-2020 methylPREDNISolone (MEDROL, BERENICE,) 4 mg Dose-Pack Indications: Acute left-sided low back pain with left-sided sciatica Follow dosing instructions, take with food. 1 Package 06/22/2020 06/28/2020 montelukast 10 mg oral tablet (20 sources) Leukotriene Receptor Antagonist Start: 09-23-2022 End: 12-18-2023 take 1 tablet by mouth once daily at bedtime montelukast (SINGULAIR) 10 mg tablet Take 1 tablet by mouth daily at bedtime. 30 tablet 11/18/2023 Active Start: 07-16-2021 End: 10-16-2021 montelukast (SINGULAIR) 10 m g tablet TAKE 1 TABLET DAILY AT BEDTIME 90 tablet 3 10/16/2021 Active Start: 06-29-2019 End: 07-14-2021 take 1 tablet by mouth once daily at bedtime montelukast (SINGULAIR) 10 mg tablet Take 1 tablet by mouth daily at bedtime. 90 tablet 3 06/24/2020 07/14/2021 Discontinued Comment on above: Take 1 tablet by aniya th daily at bedtime. TAKE 1 TABLET DAILY AT BEDTIME omeprazole 40 mg delayed release oral capsule (20 sources) Proton Pump Inhibitor Start: 09-23-2022 End: 11-12-2024 take 1 capsule by mouth once daily omeprazole (PRILOSEC) 40 mg capsule Take 1 capsule by mouth once daily. 30 capsule 11/18/2023 Active Start: 08-07-2021 End: 07-24-2022 take 1 capsule by mouth once daily omeprazole (PRILOSEC) 40 mg capsule Indications: Gastroparesis , GERD without esophagitis Take 1 capsule by mouth once daily. 90 capsule 1 08/07/2021 01/25/2022 Discontinued Comment on above: Take 1 capsule by [facility] once daily. ondansetron 4 mg oral tablet (20 sources) Serotonin-3 Receptor Antagonist Start: End: take 1 tablet by mouth every six hours as needed ondansetron orally disintegrating (ZOFRAN ODT) 4 mg disintegrating tablet Take 1 tablet by mouth every 6 hours as needed for nausea/vomiting. 30 tablet 11/18/2023 12/18/2023 Active Start: 09-23-2022 End: 11-18-2023 take 1 tablet by mouth every eight hours as needed for nausea and nausea ondansetron (ZOFRAN) 4 mg tablet Indications: Chronic nausea Take 1 tablet by mouth every 8 hours as needed. 90 tablet 3 11/18/2023 Active Start: 10-21-2020 End: 02-18-2022 take 1 tablet by mouth every eight hours as needed for nausea and nausea ondansetron (ZOFRAN) 4 mg tablet Indications: Chronic nausea Take 1 tablet by mouth every 8 hours as needed. 30 tablet 3 08/07/2021 02/18/2022 Discontinued Start: 05-03-2020 End: 07-28-2020 take 1 tablet by mouth every eight hours as needed for nausea and nausea ondansetron (ZOFRAN) 4 mg tablet Indications: Chronic nausea Take 1 tablet by mouth every 8 hours as needed. 30 tablet 3 05/03/2020 07/28/2020 Discontinued Start: 10-22-2018 End: 12-12-2020 take 1 tablet by mouth every eight hours as needed for nausea Ondansetron 4 MG tablet Discontinued 4 mg PO EVERY 8 HOURS NEEDED as needed for Nausea October 22, 2018 12:00am December 12, 2020 1:21pm Comment on above: [facility]. oseltamivir 75 mg oral capsule (1 source) Neuraminidase Inhibitor Start: 05-24-19 End: 05-29-19 take 1 capsule by mouth twice daily oseltamivir (TAMIFLU) 75 mg capsule Indications: Flu Take 1 capsule by mouth two times a day for 5 days. 10 capsule 05/24/2024 05/29/2024 Active predniSONE 20 mg oral tablet (1 source) Start: 09-04-19 End: 09-09-19 take 2 tablets by mouth once daily predniSONE (DELTASONE) 20 mg tablet Take 2 tablets by mouth once daily for 5 days. 10 tablet 0 09/03/2021 09/08/2021 Active Comment on above: Take 2 tablets by [facility] once daily for 5 days. triamcinolone acetonide 1 mg/ml topical cream (1 source) Corticosteroid Start: 09-16-19 End: 09-23-19 triamcinolone acetonide (KENALOG) 0.1 % cream Apply 1 application to affected area two times a day for 7 days. Apply to affected area. Use sparingly. 15 g 0 09/16/2023 09/23/2023 Active vilazodone hydrochloride 40 mg oral tablet (6 sources) Start: 08-14-19 24 vilazodone (VIIBRYD) 40 mg tablet 08/14/2023 Active Completed/Discontinued Medications Medication Drug Class(es) Dates Sig (Normalized) Sig (Original) [id number] 200 actuat albuterol 0.09 mg/actuat metered dose inhaler (2 sources) beta2-Adrenergic Agonist Start: 09-09-2021 take 2 puff(s) by inhalation every six hours as needed albuterol HFA (PROAIR HFA) 90 mcg/actuation inhaler Inhale 2 Puffs as instructed every 6 hours as needed. 1 Inhaler 0 09/09/2021 Active Comment on above: Inhale 2 Puffs as in structed every 6 hours as needed. aspirin 81 mg delayed release oral tablet (20 sources) Platelet Aggregation Inhibitor, Nonsteroidal Anti-inflammatory Drug Start: 2010 End: 11-18-2023 take 1 tablet by mouth once daily Aspirin (Adult Aspirin Regimen) 81 mg tablet,delayed release (DR/EC) Discontinued 81 mg PO DAILY September 14, 2018 12:00am December 12, 2020 1:22pm Comment on above: Take one(1) tablet d aily. atenolol 100 mg oral tablet (2 sources) beta-Adrenergic Maureen Start: 09-14-2018 End: 12-12-2020 take 1 tablet by mouth once daily Atenolol 100 mg tablet Discontinued 100 mg PO DAILY 90 90 September 14, 2018 12:00am December 12, 2020 1:22pm Start: 07-24-2013 End: 09-14-2018 take 4 tablets by mouth once daily Atenolol 25 MG tablet Discontinued 100 mg PO DAILY July 24, 2013 12:00am September 14, 2018 9:06am atomoxetine 80 mg oral capsule (1 source) Norepinephrine Reuptake Inhibitor Start: 08-05-2018 End: 12-12-2020 take 1 capsule by mouth once daily Atomoxetine 80 MG capsule Discontinued 80 mg PO DAILY August 05, 2018 12:00am December 12, 2020 1:22pm benzonatate 100 mg oral capsule (5 sources) Non-narcotic Antitussive Start: 09-03-2021 benzonatate (TESSALON PERLE) 100 mg capsule Take 1-2 capsules tid prn, no more than 6 in 24 hours. 30 capsule 0 09/03/2021 Active Start: 02-10-2021 End: 06-08-2021 benzonatate (TESSALON PERLE) 100 mg capsule Take 1-2 capsules tid prn, no more than 6 in 24 hours. 30 capsule 02/10/2021 06/08/2021 Discontinued (Course of therapy completed) Comment on above: Take 1-2 capsules ti d prn, no more than 6 in 24 hours. buprenorphine 8 mg / naloxone 2 mg sublingual film (1 source) Partial Opioid Agonist, Opioid Antagonist Start: 9 End: Buprenorphine-Naloxo ne 1 EACH film Discontinued 1 NMA SL DAILY August 05, 2018 12:00am December 12, 2020 1:22pm 24 hr buPROPion hydrochloride 150 mg extended release oral tablet (7 sources) Aminoketone Start: 2 End: 2 take 1 tablet by mouth once daily buPROPion XL (WELLBUTRIN XL) 150 mg 24 hr tablet Indications: Fibromyalgia , Chronic fatigue Take 1 tablet by mouth once daily. 90 tablet 07/16/2021 01/25/2022 Discontinued Start: 08-10-2020 End: 07-14-2021 take 1 tablet by mouth once daily buPROPion XL (WELLBUTRIN XL) 150 mg 24 hr tablet Indications: Fibromyalgia , Chronic fatigue Take 1 tablet by mouth once daily. 30 tablet 11 08/10/2020 07/14/2021 Discontinued Comment on above: Take 1 tablet by aniya once daily. chlorpheniramine maleate 4 mg oral tablet (9 sources) Histamine-1 Receptor Antagonist End: 2021 take 1 tablet by mouth every six hours as needed chlorpheniramine (CHLORTRIMETON) 4 mg tablet Take 4 mg by mouth every 6 hours as needed. 01/25/2022 Discontinued (Course of therapy completed) Comment on above: Take 4 mg by mouth e very 6 hours as needed. docusate sodium 100 mg oral capsule (1 source) Start: 2018 End: 2018 take 1 capsule by mouth once daily Docusate Sodium 100 MG capsule Discontinued 100 mg PO DAILY August 05, 2018 12:00am September 14, 2018 9:10am 0.5 ml dulaglutide 3 mg/ml auto-injector (1 source) GLP-1 Receptor Agonist Start: 2018 End: 2020 Dulaglutide 1.5 MG/0.5 ML pen injector Discontinued 1.5 mg SQ EVERY WEEK August 05, 2018 12:00am December 12, 2020 1:22pm fluticasone propionate 0.05 mg/actuat metered dose nasal spray (4 sources) Corticosteroid Start: 2021 take 2 spray(s) by mouth once daily fluticasone (FLONASE) 50 mcg/actuation nasal spray Use 2 Sprays in each nostril once daily. Rinse mouth after use. 1 Each 0 09/09/2021 Active Start: 06-29-2019 End: 06-26-2020 take 1 spray(s) nasal route once daily fluticasone (FLONASE) 50 mcg/actuation nasal spray Indications: Acute non-recurrent pansinusitis Use 1 [place] in each nostril once daily. 3 Bottle 3 06/29/2019 06/26/2020 Discontinued Start: 08-05-2018 End: 12-12-2020 take 50 ug by inhalation once daily Fluticasone Propionate 50 MCG blister with device Discontinued 50 ug IH DAILY August 05, 2018 12:00am December 12, 2020 1:21pm Comment on above: Use 2 Sprays in each nostril once daily. Rinse mouth after use. 12 hr guaiFENesin 600 mg extended release oral tablet (3 sources) Start: take 2 tablets by mouth twice daily guaiFENesin (MUCINEX) 600 mg 12 hr tablet Take 2 tablets by mouth twice daily. 24 tablet 0 09/03/2021 Active Comment on above: Take 2 tablets by [facility] twice daily. lansoprazole 30 mg delayed release oral capsule (6 sources) Proton Pump Inhibitor Start: End: take 1 capsule by mouth once daily lansoprazole (PREVACID) 30 mg capsule Indications: Gastroesophageal reflux disease, esophagitis presence not specified Take 1 capsule by mouth once daily. 90 capsule 3 06/29/2019 08/07/2021 Discontinued Comment on above: Take 1 capsule by [facility] once daily. naproxen 500 mg oral tablet (2 sources) Nonsteroidal Anti-inflammatory Drug Start: 017 End: take 1 tablet by mouth twice daily as needed for pain Naproxen 500 MG tablet Discontinued 500 mg PO TWICE DAILY NEEDED as needed for Pain August 05, 2018 1:50pm December 12, 2020 1:21pm PARoxetine hydrochloride 40 mg oral tablet (20 sources) Serotonin Reuptake Inhibitor Start: 023 End: 024 take 1 tablet by mouth once daily PARoxetine (PAXIL) 40 mg tablet Indications: Adjustment disorder with depressed mood Take 1 tablet by mouth once daily. 14 tablet 10/04/2022 11/18/2023 Discontinued (Discontinued by another Health Care Provider) Start: 07-16-2021 End: 08-02-2022 take 1 tablet by mouth once daily PARoxetine (PAXIL) 40 mg tablet Indications: Adjustment disorder with depressed mood Take 1 tablet by mouth once daily. 90 tablet 3 07/16/2021 08/02/2022 Discontinued Start: 07-24-2013 End: 07-14-2021 take 1 tablet by mouth once daily PARoxetine (PAXIL) 40 mg tablet Indications: Adjustment disorder with depressed mood Take 1 tablet by mouth once daily. 90 tablet 3 06/24/2020 07/14/2021 Discontinued Comment on above: Take 1 tablet by [facility] once daily. polyethylene glycol 3350 07110 mg powder for oral solution (1 source) Osmotic Laxative Start: 08-06-19 End: 09-05-19 take 17 g by mouth once daily Polyethylene Glycol 3350 17 GM packet Discontinued 17 g PO DAILY August 05, 2018 12:00am September 03, 2018 12:00am September 04, 2018 12:08am promethazine hydrochloride 25 mg oral tablet (1 source) Phenothiazine Start: 10-23-19 End: 12-13-19 take 1 tablet by mouth every six hours as needed for nausea Promethazine 25 MG tablet Discontinued 25 mg PO EVERY 6 HOURS NEEDED as needed for Nausea October 22, 2018 12:00am December 12, 2020 1:21pm tamsulosin hydrochloride 0.4 mg oral capsule (10 sources) alpha-Adrenergic Maureen Start: 06-29-19 End: 01-26-20 take 1 capsule by mouth twice daily tamsulosin (FLOMAX) 0.4 mg Take 1 capsule by mouth twice daily. 180 capsule 3 06/28/2020 01/25/2022 Discontinued Start: 08-05-2018 End: 12-12-2020 take 1 capsule by mouth twice daily tamsulosin ER (FLOMAX) 0.4 mg cap Take 1 capsule by mouth twice daily. 05/04/2019 06/23/2020 Discontinued Comment on above: Take 1 capsule by [facility] twice daily. 0.5 ml testosterone enanthate 150 mg/ml auto-injector (15 sources) Androgen Start: 07-17-19 End: 11-18-19 inject 75 mg by subcutaneous injection every week testosterone enanthate (XYOSTED) 75 mg/0.5 mL AutoInjector Indications: Hypogonadism in male Inject 75 mg subcutaneously one time a week for 90 days. 4 Each 2 07/16/2021 11/18/2023 Discontinued (Course of therapy completed) Start: 06-28-2020 End: 07-14-2021 inject 75 mg by subcutaneous injection every week testosterone enanthate (XYOSTED) 75 mg/0.5 mL AutoInjector Indications: Hypogonadism in male Inject 75 mg subcutaneously one time a week for 30 days. 4 Syringe 5 06/28/2020 07/14/2021 Discontinued Start: 08-05-2018 End: 12-12-2020 Testosterone Enanthate 100 M G/0.5 ML auto-injector Discontinued 100 mg IM Q14D August 05, 2018 12:00am December 12, 2020 1:21pm Comment on above: Inject 75 mg subcuta neously one time a week for 90 days. Problems Active Problems Problem Classification Problem Date Documented Date Episodic/Chronic Adjustment disorders (20 sources) Adjustment disorder with depressed mood; Translations: [Adjustment disorder with depressed mood] Onset: 09-04-2006 Chronic Allergic reactions (1 source) Allergic disorder of skin; Translations: [Allergic contact dermatitis, unspecified cause] 09-16-2023 Episodic Anxiety disorders (20 sources) Anxiety state; Translations: [Generalized anxiety disorder] Onset: 09-04-2006 02-28-2016 Chronic Conditions associated with dizziness or vertigo (1 source) Dizziness; Translations: [Dizziness and giddiness] 07-25-2013 Episodic Coronary atherosclerosis and other heart disease (20 sources) Coronary arteriosclerosis; Translations: [Atherosclerotic heart disease of [place] coronary artery without angina pectoris] Onset: 08-10-2018 08-10-2018 Chronic Diabetes mellitus without complication (7 sources) Diabetes mellitus; Translations: [Type 2 diabetes mellitus without complications] Chronic Disorders of lipid metabolism (20 sources) Hyperlipidemia; Translations: [Hyperlipidemia, unspecified] Onset: 08-13-2010 11-28-2014 Chronic Disorders of teeth and jaw (1 source) Toothache; Translations: [Other specified disorders of teeth and supporting structures] 12-17-2023 Episodic Diverticulosis and diverticulitis (1 source) Diverticular disease; Translations: [Diverticulosis of intestine, part unspecified, without perforation or abscess without bleeding] Chronic E Codes: Fall (1 source) Unspecified fall due to ice and snow, initial encounter; Translations: [Fall from other slipping, tripping, or stumbling] 06-22-2020 Episodic Esophageal disorders (20 sources) Gastroesophageal reflux disease; Translations: [Gastro-esophageal reflux disease without esophagitis] Onset: 01-20-2015 01-20-2015 Chronic Essential hypertension (20 sources) Benign essential hypertension; Translations: [Essential (primary) hypertension] Onset: 06-16-2008 Resolved: 03-19-2016 Chronic Fluid and electrolyte disorders (1 source) Hypokalemia; Translations: [Hypokalemia] Episodic Headache; including migraine (1 source) Headache; Translations: [Headache] 12-18-2020 Episodic Immunizations and screening for infectious disease (2 sources) Suspected disease caused by 2019-nCoV; Translations: [Suspected COVID-19 virus infection] Episodic Influenza (1 source) Influenza; Translations: [Influenza due to unidentified influenza virus with other respiratory manifestations] 05-24-2024 Episodic Joint disorders and dislocations; trauma-related (20 sources) Derangement of knee; Translations: [Unspecified internal derangement of unspecified knee] Onset: 06-18-2016 06-18-2016 Chronic Malaise and fatigue (20 sources) Fatigue; Translations: [Chronic fatigue, unspecified] Onset: 08-03-2018 Chronic Malaise and fatigue (1 source) Fatigue; Translations: [Other fatigue] 09-16-2018 Episodic Mood disorders (20 sources) Bipolar I disorder; Translations: [Bipolar disorder, unspecified] Onset: 06-29-2018 06-29-2018 Chronic Nutritional deficiencies (20 sources) Vitamin D deficiency; Translations: [Vitamin D deficiency, unspecified] Onset: 12-28-2015 12-28-2015 Chronic Occlusion or stenosis of precerebral arteries (20 sources) Arteriosclerosis of carotid artery; Translations: [Occlusion and stenosis of unspecified carotid artery] Onset: 06-09-2018 06-09-2018 Chronic Other and unspecified benign neoplasm (1 source) History of polyp of colon; Translations: [Personal history of colonic polyps] Episodic Other circulatory disease (2 sources) Pulmonary congestion ; Translations: [Other specified symptoms and signs involving the circulatory and respiratory systems] Episodic Other disorders of stomach and duodenum (1 source) Gastroparesis syndrome; Translations: [Gastroparesis] 11-18-2023 Episodic Other endocrine disorders (20 sources) Male hypogonadism; Translations: [Testicular hypofunction] Onset: 01-16-2018 Chronic Other endocrine disorders (20 sources) Hyperprolactinemia; Translations: [Hyperprolactinemia] Onset: 01-16-2018 01-16-2018 Chronic Other hereditary and degenerative nervous system conditions (20 sources) Essential tremor; Translations: [Essential tremor] Onset: 06-18-2016 06-18-2016 Chronic Other injuries and conditions due to external causes (1 source) Puncture wound - injury; Translations: [Other injury of unspecified body region, initial encounter] 01-08-2023 Episodic Other lower respiratory disease (3 sources) Cough; Translations: [Cough] Episodic Other lower respiratory disease (2 sources) Cough; Translations: [Acute cough] 05-24-2024 Episodic Other lower respiratory disease (1 source) Dyspnea on exertion; Translations: [Other forms of dyspnea] 09-16-2018 Episodic Other male genital disorders (20 sources) Secondary erectile dysfunction; Translations: [Male erectile dysfunction, unspecified] Onset: 10-22-2016 10-22-2016 Chronic Other non-traumatic joint disorders (1 source) Pain of left wrist; Translations: [Pain in left wrist] 03-13-2021 Episodic Other nutritional; endocrine; and metabolic disorders (20 sources) Body mass index 30+ - obesity; Translations: [Obesity, unspecified] Onset: 08-11-2014 08-11-2014 Chronic Other upper respiratory disease (20 sources) Allergic rhinitis; Translations: [Other allergic rhinitis] 09-04-2006 Chronic Other upper respiratory infections (1 source) Acute upper respiratory infection; Translations: [Acute upper respiratory infection, unspecified] 05-24-2024 Episodic Residual codes; unclassified (20 sources) Obstructive sleep apnea syndrome; Translations: [Obstructive sleep apnea (adult) (pediatric)] Onset: 04-28-2014 Resolved: 03-19-2016 04-10-2021 Chronic Spondylosis; intervertebral disc disorders; other back problems (20 sources) Degeneration of lumbar intervertebral disc; Translations: [Other intervertebral disc degeneration, lumbar region] Onset: 02-17-2012 02-17-2012 Chronic Sprains and strains (13 sources) Strain of neck muscle; Translations: [Strain of muscle, fascia and tendon at neck level, initial encounter] Onset: 11-08-2010 Resolved: 04-28-2014 04-28-2014 Episodic Thyroid disorders (20 sources) Hypothyroidism; Translations: [Hypothyroidism, unspecified] Onset: 02-15-2025 Resolved: 04-28-2014 01-20-2015 Chronic Unclassified (20 sources) Type 2 diabetes mellitus without complication; Translations: [Uncontrolled type 2 diabetes mellitus without complication, without long-term current use of insulin] Onset: 06-18-2016 06-18-2016 Unclassified (1 source) Acute cough; Translations: [Acute cough] Onset: 05-24-2024 Past or Other Problems Problem Classification Problem Date Documented Da te Episodic/Chronic Abdominal pain (12 sources) Right upper quadrant pain; Translations: [Right upper quadrant pain] Onset: 1 Resolved: 6 02-28-2016 Episodic Cardiac dysrhythmias (20 sources) Palpitations; Translations: [Palpitations] Onset: 2 07-01-2011 Episodic Gastrointestinal hemorrhage (12 sources) Gastrointestinal hemorrhage; Translations: [Gastrointestinal hemorrhage, unspecified] Resolved: 5 04-28-2014 Episodic Nausea and vomiting (20 sources) Nausea; Translations: [Nausea] Onset: 0 08-21-2019 Episodic Other aftercare (12 sources) Patient encounter status; Translations: [Encounter for therapeutic drug level monitoring] Onset: 3 Resolved: 6 03-19-2016 Episodic Other connective tissue disease (20 sources) Fibromyalgia; Translations: [Fibromyalgia] Onset: 1 Episodic Other connective tissue disease (12 sources) Trigger thumb of right hand; Translations: [Trigger thumb, right thumb] Onset: 5 Resolved: 6 03-19-2016 Episodic Other disorders of stomach and duodenum (20 sources) Delayed gastric emptying; Translations: [Functional dyspepsia] Onset: 0 08-21-2019 Episodic Other gastrointestinal disorders (20 sources) Dysphagia; Translations: [Dysphagia, unspecified] Onset: 8 12-25-2017 Episodic Other nervous system disorders (12 sources) Lesion of radial nerve; Translations: [Lesion of radial nerve, unspecified upper limb] Onset: 1 Resolved: 5 04-28-2014 Chronic Other nervous system disorders (20 sources) Allodynia; Translations: [Other disturbances of skin sensation] Onset: 7 02-20-2017 Episodic Other screening for suspected conditions (not mental disorders or infectious disease) (20 sources) Decreased testosterone level ; Translations: [Other specified abnormal findings of blood chemistry] Onset: 8 12-18-2017 Episodic Pulmonary heart disease (12 sources) Pulmonary embolism; Translations: [Other pulmonary embolism without acute cor pulmonale] Onset: 1 Resolved: 5 04-28-2014 Episodic Residual codes; unclassified (20 sources) Reduced libido; Translations: [Decreased libido] Onset: 5 08-11-2014 Episodic Spondylosis; intervertebral disc disorders; other back problems (20 sources) Lumbar radiculopathy; Translations: [Radiculopathy, lumbar region] Onset: 7 Resolved: 5 02-20-2017 Episodic Substance-related disorders (12 sources) Opioid dependence; Translations: [Opioid dependence, uncomplicated] Onset: 4 Resolved: 7 01-09-2017 Chronic Results Test Name Value Interpretation Reference Range Facility [facility] 01[facility]14[facility]2025 [facility] JAIRO COBURN ([id number]) 1960 M Date Time Provider Department 01/14/25 CINDI NUNEZ [facility] During your visit today, we recorded the following information about you: Fior Santiago RN 01/14/2025 1:42 PM Signed [facility] phoned to request refills for patient. Does not appear patient has been seen in pcp office for the past year. Phoned patient to ask if he needed refills sent to [facility]. Pt states he does not. [facility] reports [facility] which [facility] why he has not been in to see pcp in some time. Allergies As of Date: 01/14/2025 Noted Allergy Reaction AMITRIPTYLINE 07/13/2020 1 - Mental Status Change Comments: increased anger COUMADIN (WARFARIN SODIUM) 08/13/2010 2 - Rash NEURONTIN (GABAPENTIN) 03/15/2013 1 - Mental Status Change PENICILLINS 12/18/2023 6 - Diarrhea 14 - Other: See Comments Comments: Nausea SEASONAL ALLERGIES 05/13/2023 14 - Other: See Comments Comments: Cockroaches, dust mites, trees, grasses, weeds, ragweed STRATTERA (ATOMOXETINE HCL) 08/07/2018 14 - Other: See Comments Comments: testicular pain TANZEUM (ALBIGLUTIDE) 12/02/2016 8 - GI Upset Comments: nausea Date Reviewed: 05/24/2024 Reviewed by: Katarzyna Strickland MA - Fully Assessed Reason for Visit: [facility] requesting refills [Other] Prescriptions as of 01/14/2025 - glimepiride (AMARYL) 4 mg tablet TAKE 1/2 TABLET DAILY WITH BREAKFAST - cyclobenzaprine (FLEXERIL) 10 mg tablet Take 1 tablet by mouth three times a day as needed for muscle spasm or pain. - empagliflozin (JARDIANCE) 25 mg tablet Take 1 tablet by mouth once daily. - Cholecalciferol, Vitamin D3, 50 mcg (2,000 unit) cap Take 1 capsule by mouth once daily. - cetirizine (ZYRTEC) 10 mg tablet Take 1 tablet by mouth once daily. - atorvastatin (LIPITOR) 80 mg tablet take 1 tablet by mouth at bedtime for cholesterol - hydroCHLOROthiazide 12.5 mg capsule Take 1 capsule by mouth once daily. - levothyroxine (SYNTHROID) 150 mcg tablet TAKE 1 TABLET DAILY ON AN EMPTY STOMACH FOR THYROID - lisinopril (ZESTRIL) 10 mg tablet Take 1 tablet by mouth once daily. - metFORMIN (GLUCOPHAGE) 500 mg tablet Take 1 tablet by mouth two times a day with meals. - montelukast (SINGULAIR) 10 mg tablet Take 1 tablet by mouth daily at bedtime. - omeprazole (PRILOSEC) 40 mg capsule Take 1 capsule by mouth once daily. - ondansetron (ZOFRAN) 4 mg tablet Take 1 tablet by mouth every 8 hours as needed. - atorvastatin (LIPITOR) 80 mg tablet Take 1 tablet by mouth daily at bedtime. For cholesterol. - Cholecalciferol, Vitamin D3, 50 mcg (2,000 unit) cap Take 1 capsule by mouth once daily. - empagliflozin (JARDIANCE) 25 mg tablet Take 1 tablet by mouth once daily. Take 1 tablet once daily in the morning - glimepiride (AMARYL) 4 mg tablet Take 1 tablet by mouth daily with breakfast. - hydroCHLOROthiazide 12.5 mg capsule Take 1 capsule by mouth once daily. - levothyroxine (SYNTHROID) 150 mcg tablet Take 1 tablet by mouth daily before breakfast. - lisinopril (ZESTRIL) 10 mg tablet Take 1 tablet by mouth once daily. - metFORMIN (GLUCOPHAGE) 500 mg tablet Take 1 tablet by mouth two times a day. - montelukast (SINGULAIR) 10 mg tablet Take 1 tablet by mouth daily at bedtime. - omeprazole (PRILOSEC) 40 mg capsule Take 1 capsule by mouth once daily. - vilazodone (VIIBRYD) 40 mg tablet - ketoconazole (NIZORAL) 2 % cream Apply to affected area once daily. - blood sugar diagnostic (BLOOD GLUCOSE TEST) test strip Test blood sugar(s) 1 times daily. Dx: Type 2 DM - Controlled E11.9 Insulin: No - Lancets lancets Test blood sugar(s) 1 times daily. Dx: Type 2 DM - Controlled E11.9 Insulin: No - blood sugar diagnostic (TRUETRACK TEST) test strip Test blood sugar(s) one time daily. Dx: impaired fasting glucose. Insulin: No - Lancets lancets Test blood sugar(s) one time daily. Dx: impaired fasting glucose. Insulin: No - Syringe with Needle, Disp, 3 mL 23 gauge x 1 1/2 syrg 1 Each every 2 weeks. - CPAP Initiate CPAP @ 5-15 cm of water with humidification. Mask (per patient preference) optional chin strap (if indicated) , filters, tubing, humidifier and lifetime supplies. Meds Comments as of 11/18/2023: [facility] Problem List As Of Date 01/14/2025 Noted Resolved Hypothyroidism [E03.9] Thyrotoxicosis without mention of goiter or oth* 04/28/2014 ALLERGIC RHINITIS NEC [J30.89] ADJUSTMENT DISORDER WITH DEPRESSED MOOD [F43.21]09/04/2006 Anxiety state [F41.1] 09/04/2006 Lumbago [M54.50] 01/14/2007 04/28/2014 BENIGN HYPERTENSION [I10] 06/16/2008 Pulmonary embolism (HCC) [I26.99] 08/08/2010 04/28/2014 Hyperlipidemia with target LDL less than 100 [E*08/13/2010 Abdominal pain, right upper quadrant [R10.11] 08/16/2010 02/28/2016 Cervical muscle strain [S16.1XXA (more content not included)... Normal [facility] Surgery Visit Reporton 09-22 Surgery Visit Report [facility] [address] [place] [address] OFFICE VISIT Date of Service: 09/22/24 MR#: [id number] Acct: [id number] Name: JAIRO COBURN Rep #: [id number] : 1960 Provider: Dr. Irene cruz MD Age/Sex: 64/M Location: [facility] Status: Signed Intake Vital Signs 12/12/20 13:20 09/22/24 14:58 Height 5 ft 6 in 5 ft 6 in Weight: 190 lb 6 oz BMI 30.7 BP 117/67 Blood Pressure Location Rt brachial Position Sitting Respiration 17 Pulse 69 Pulse Source Monitor Pulse Oximetry (%) 95 Oxygen Delivery Method room air Intake Visit Reasons: COLONOSCOPY Chief Complaint: colonoscopy Is patient in pain?: No Allergies warfarin (From Coumadin) Allergy (Verified 09/22/24 14:59) Rash albiglutide (From Tanzeum) Adverse Reaction (Verified 09/22/24 14:59) Nausea gabapentin Adverse Reaction (Verified 09/22/24 14:59) DIZZINESS lurasidone (From Latuda) Adverse Reaction (Verified 09/22/24 14:59) Other Medications ???Medication ???Instructions ???Recorded ???Confirmed ???Type hydrochlorothiazide 12.5 mg capsule 12.5 mg PO DAILY 07/24/1309/22 History metformin 500 mg 24 hr 500 mg PO BID 06/01/16 09/22/24 Hi story tablet,extended release (gastric retention) atenolol 50 mg tablet 50 mg PO QDAY 09/22/24 09/22/24 Hi story atorvastatin 80 mg tablet (Lipitor) 80 mg PO QHS 09/22/24 09/22/24 History cholecalciferol (vitamin D3) 25 25 mcg PO QDAY 09/22/24 09/22/24 H istory mcg (1,000 unit) capsule empagliflozin 25 mg tablet 25 mg PO QAM 09/22/24 09/22/24 His tory lansoprazole 15 mg capsule,delayed 15 mg PO QDAY 09/22/24 09/22/24 History release PFSH Medical History (Updated 09/22/24 @ 14:[address] Irene Amanda MD) Left carotid artery stenosis History of pulmonary embolism Hyperprolactinemia Thyrotoxicosis SI joint arthritis Obesity Hypogonadism Postablative hypothyroidism DJD (degenerative joint disease), cervical Lumbar radiculopathy GI bleed GERD (gastroesophageal reflux disease) Bipolar disorder Type 2 diabetes mellitus Essential (primary) hypertension Non-alcoholic fatty liver disease Obstructive sleep apnea Dyslipidemia Surgical History History of arthroscopic knee surgery History of surgery on arm History of vasectomy History of left heart catheterization (09/29/12) Family History (Updated 09/22/24 @ 14:57 by Jaz Medrano) Mother Diabetes Heart disease Hypertension Sister Diabetes Brother Diabetes Grandfather Heart disease maternal Colon cancer Grandmother Heart disease maternal Colon cancer Social History (Updated 09/22/24 @ 14:58 by Jaz Medrano) Smoking Status: Former smoker alcohol intake: never substance use type: marijuana HPI HPI HPI: 64-year-old male presents for screening colonoscopy. Patient's paternal grandmother and grandfather did have colon cancer greater than the age of 60, patient's dad has had colonoscopies and doing well, patient's mom had colon issues but no colon cancer. Patient's last colonoscopy was March 2016 had a hyperplastic polyp in the rectum at that time. Patient states he occasionally has some left lower quadrant pain about once a month lasting 1 to 2 days has had it most of his life nothing makes it better or worse. Patient states he has bowel movements daily denies any blood. ROS General General: Yes fatigue; No weight change, appetite, colon cancer, breast cancer or weakness HEENT HEENT: No difficulty swallowing, eye injury, eye surgery, swollen glands or hoarseness Endo Endocrine: Yes thyroid disease and diabetes mellitus; No thyroid cancer, Hair loss, heat intolerance or cold intolerance Skin Skin: No rash or changing moles Musc Musculoskeletal: Yes back problems and arthritis; No rheumatoid arthritis, gout or joint pain Cardio Cardiovascular: Yes heart disease and high blood pressure; No murmur, pacemaker, atrial fibrillation, heart attack, heart stent, palpitations, shortness of breath with exertion or chest pain Psych Psychiatric: Yes depression and anxiety; No hearing voices Resp Respiratory: No shortness of breath, Yes sleep apnea, No cough, No COPD, No asthma, No emphysema and No wheezing Gastro Gastrointestinal: No abdominal pain, No nausea or vomiting, No diarrhea, No constipation, No blood in stool, Yes acid reflux, Yes hemorrhoids, No ulcers, No gallbladder problem and No black,tarry stools Samuel Hematologic: No blood thinners, No blood disorders, No bleeding, No anemia and No blood clots Neuro Neurologic: No system reviewed and no additional complaints, except as documented, No as per HPI, No abnormal gait, No abnormal hearing, No abnormal movements, No (more content not included)... Normal [facility] 05-24-2024 [facility] Office Visit ([facility] ) -------- JAIRO COBURN ([id number]) 1960 M Date Time Provider Department 05/24/24 11:00 AM SHARA LYNN [facility] During your visit today, we recorded the following information about you: Temperature Pulse Respiration Blood pressure 99.7 degrees 84/minute 16/minute 124/80 Weight 85.7 kg Shara Lynn APRN.LOGISTICS TECH 05/24/2024 11:32 AM Signed CC: Patient presents with: Cough: congestion, headache, bodyaches, fever x last night HPI: Jairo Coburn is a 64 year old male who presents to the office with complaint of chest congestion, head congestion, cough, nonproductive, says feels tight to breath, sinus symptoms, and fever since last night. Symptoms are staying the same. Associated symptoms includes headache and body aches. Denies nausea, vomiting , and diarrhea. Treatments tried include nothing so far. with no relief of symptoms. Sick contacts: unknown. History of asthma, frequent episodes of bronchitis, chronic bronchitis, bronchiectasis or COPD: No Smoker: No Seasonal/environmental allergies: No The ROS is otherwise negative. The patient's pmh, medications, allergies, and past visits are reviewed. PHYSICAL EXAM: BP 124/80 Pulse 84 Temp 37.6 ?C (99.7 ?F) Resp 16 Wt 85.7 kg (188 lb 15 oz) SpO2 94% BMI 30.49 kg/m? General appearance: alert, cooperative, pleasant, in no acute distress Head: Normocephalic Eyes: EOM's intact, conjunctiva pink and moist, no icterus, sclera white, non-injected Ears: Right ear: External ear/canal- Normal, TM - clear with good landmarks. Left ear: External ear/canal- Normal, TM - clear with good landmarks Oropharynx:moist without lesions, No erythema, exudates or tonsillar hypertrophy. Heart: Negative. RRR without obvious murmur, gallop, or rubs. No ectopy. Lungs: clear to auscultation, without rales or wheeze, good air exchange PAST MEDICAL HISTORY Diagnosis Date Abdominal pain, right upper quadrant Allergic rhinitis due to other allergen Bipolar I disorder (HCC) 06/29/2018 Cervical muscle strain 11/08/2010 Degenerative arthritis of cervical spine 06/23/2012 Diarrhea Fibromyalgia 08/10/2020 GERD (gastroesophageal reflux disease) GI bleed Heart palpitations 07/01/2011 HTN (hypertension) Hyperlipidemia LDL goal < 100 08/13/2010 Lumbar degenerative disc disease 02/17/2012 Lumbar radiculopathy 02/20/2017 RLE Nausea alone Obstructive sleep apnea treated with BiPAP 01/01/2016 01/01/16: pressure 5-15 Other postablative hypothyroidism Pulmonary embolism (HCC) 08/08/2010 SI joint arthritis 01/17/2014 Thyrotoxicosis without mention of goiter or other cause, without mention of thyrotoxic crisis or storm Type II or unspecified type diabetes mellitus without mention of complication, not stated as uncontrolled 02/02/2012 PAST SURGICAL HISTORY Procedure Laterality Date ARTHRS KNE SURG W/MENISCECTOMY MED/LAT W/SHVG 12/15/2012 Arthroscopy, knee left CIRCUMCISION W/CLAMP/OTH DEV W/BLOCK Circumcision, COLONOSCOPY N/A 03/27/2016 MAC COLONOSCOPY FLX DX W/COLLJ SPEC WHEN PFRMD 04/20/2009 Colonoscopy EGD N/A 03/27/2016 MAC EGD TRANSORAL BIOPSY SINGLE/MULTIPLE 08/16/10 HEMORRHOIDECTOMY INTERNAL RUBBER BAND LIGATIONS Hemorrhoidectomy PAST SURGICAL HISTORY OF vasectomy reversal PAST SURGICAL HISTORY OF L testicle- vericocele PAST SURGICAL HISTORY OF R arm- radial nerve PAST SURGICAL HISTORY OF 06/2007 heart cath at [facility] VASECTOMY UNI/BI SPX W/POSTOP SEMEN EXAMS ALLERGIES Amitriptyline, Coumadin [Warfarin Sodium], Neurontin [Gabapentin], Penicillins, Seasonal Allergies, Strattera [Atomoxetine Hcl], and Tanzeum [Albiglutide] MEDICATIONS glimepiride (AMARYL) 4 mg tablet TAKE 1/2 TABLET DAILY WITH BREAKFAST cyclobenzaprine (FLEXERIL) 10 mg tablet Take 1 tablet by mouth three times a day as needed for muscle spasm or pain. empagliflozin (JARDIANCE) 25 mg tablet Take 1 tablet by mouth once daily. Cholecalciferol, Vitamin D3, 50 mcg (2,000 unit) cap Take 1 capsule by mouth once daily. cetirizine (ZYRTEC) 10 mg tablet Take 1 tablet by mouth once daily. atorvastatin (LIPITOR) 80 mg tablet take 1 tablet by mouth at bedtime for cholesterol hydroCHLOROthiazide 12.5 mg capsule Take 1 capsule by mouth once daily. levothyroxine (SYNTHROID) 150 mcg tablet TAKE 1 TABLET DAILY ON AN EMPTY STOMACH FOR THYROID metFORMIN (GLUCOPHAGE) 500 mg tablet Take 1 tablet by mouth two times a day with meals. montelukast (SINGULAIR) 10 mg tablet Take 1 tablet by mouth daily at bedtime. omeprazole (PRILOSEC) 40 mg capsule Take 1 capsule by mouth once daily. ondansetron (ZOFRAN) 4 mg tablet Take 1 tablet by mouth every 8 hours as needed. vilazodone (VIIBRYD) 40 mg tablet ketoconazole (NIZORAL) 2 % cream Apply to affected area once daily. blood sugar diagnostic (BLOOD GLUCOSE TEST) test strip (more content not included)... Normal [facility] INFLUENZA A&B MOLECULAR (POC )on 05-24-2024 Flu A (POCT) Positive Abnormal Negative [facility] Comment on above: Location:[address], [place], [address] Interpretation and review of laboratory results Abnormal [facility] Procedural Control Valid [facility] Location:[facility], [facility], [place], [address] [facility] POINT OF CARE [facility] XR CHEST 2V FRONTAL/LATon XR CHEST 2V FRONTAL/LAT * * *Final Report* * * DATE OF EXAM: May 24 2024 11:25AM WOX 5291 - XR CHEST 2V FRONTAL/LAT / PROCEDURE REASON: Acute cough * * * * Physician Interpretation * * * * EXAMINATION: CHEST RADIOGRAPH (2 VIEW FRONTAL and LATERAL) CLINICAL HISTORY: Acute cough MQ: XC2_6 EXAM DATE/TIME: 05/24/2024 11:25 AM COMPARISON: Chest x-ray dated 09/03/2021 RESULT: Lines, tubes, and devices: None. Lungs and pleura: No consolidation. No lung mass. No pleural effusion. No pneumothorax. Cardiomediastinal silhouette: Normal cardiomediastinal silhouette. Bones and soft tissues: Degenerative changes are present within the thoracic spine. IMPRESSION: No acute radiographic abnormality. Vp Lab: [facility] Transcribe Date/Time: May 24 2024 11:27A Dictated by : RENÉE DURAN MD This examination was interpreted and the report reviewed and electronically signed by: RENÉE DURAN MD on May 24 2024 11:27AM EST [id number] Normal [facility] XR Chest PA and Lateralon IMPRESSION: No acute radiographic abnormality. Vp Lab: [facility] Transcribe Date/Time: May 24 2024 11:27A Dictated by : RENÉE DURAN MD This examination was interpreted and the report reviewed and electronically signed by: RENÉE DURAN MD on May 24 2024 11:27AM [facility] DIVISION OF RADIOLOGY * * *Final Report* * * DATE OF EXAM: May 24 2024 11:25AM WOX 5291 - XR CHEST 2V FRONTAL/LAT / PROCEDURE REASON: Acute cough * * * * Physician Interpretation * * * * EXAMINATION: CHEST RADIOGRAPH (2 VIEW FRONTAL & LATERAL) CLINICAL HISTORY: Acute cough MQ: XC2_6 EXAM DATE/TIME: 05/24/2024 11:25 AM COMPARISON: Chest x-ray dated 09/03/2021 RESULT: Lines, tubes, and devices: None. Lungs and pleura: No consolidation. No lung mass. No pleural effusion. No pneumothorax. Cardiomediastinal silhouette: Normal cardiomediastinal silhouette. Bones and soft tissues: Degenerative changes are present within the thoracic spine. DIVISION OF RADIOLOGY Provider, [facility] - 05/24/2024 * * *Final Report* * * DATE OF EXAM: May 24 2024 11:25AM WOX 5291 - XR CHEST 2V FRONTAL/LAT / PROCEDURE REASON: Acute cough * * * * Physician Interpretation * * * * EXAMINATION: CHEST RADIOGRAPH (2 VIEW FRONTAL & LATERAL) CLINICAL HISTORY: Acute cough MQ: XC2_6 EXAM DATE/TIME: 05/24/2024 11:25 AM COMPARISON: Chest x-ray dated 09/03/2021 RESULT: Lines, tubes, and devices: None. Lungs and pleura: No consolidation. No lung mass. No pleural effusion. No pneumothorax. Cardiomediastinal silhouette: Normal cardiomediastinal silhouette. Bones and soft tissues: Degenerative changes are present within the thoracic spine. IMPRESSION IMPRESSION: No acute radiographic abnormality. Vp Lab: [facility] Transcribe Date/Time: May 24 2024 11:27A Dictated by : RENÉE DURAN MD This examination was interpreted and the report reviewed and electronically signed by: RENÉE DURAN MD on May 24 2024 11:27AM [facility] Radiology [facility]narrative[facility] and LateralOrder ed By: Ccf Provider on 05-24-2024 [facility] XR Foot - left AP and Latera l and obliqueon 01-08-2023 IMPRESSION: No opaqu e foreign body Vp Lab: [facility] Transcribe Date/Time: Jan 08 2023 12:18P Dictated by : KAMILAH LI MD This examination was interpreted and the report reviewed and electronically signed by: KAMILAH LI MD on Jan 08 2023 12:25PM [facility] DIVISION OF RADIOLOGY * * *Final Report* * * DATE OF EXAM: Jan 08 2023 12:18PM WOX 5336 - XR FOOT 3V AP/LAT/OBL LT / PROCEDURE REASON: Puncture wound * * * * Physician Interpretation * * * * HISTORY: Puncture wound dropped a pair of pruning paulino on top of left foot yeasteray, wound dorsal side mid third MT marked by arrow with redness TECHNIQUE: 3 views COMPARISON: 08/15/2014 RESULT: No opaque foreign body is seen in the soft tissues. Bony and joint structures appear intact. DIVISION OF RADIOLOGY Provider, [facility] - 01/08/2023 * * *Final Report* * * DATE OF EXAM: Jan 08 2023 12:18PM WOX 5336 - XR FOOT 3V AP/LAT/OBL LT / PROCEDURE REASON: Puncture wound * * * * Physician Interpretation * * * * HISTORY: Puncture wound dropped a pair of pruning paulino on top of left foot yeasteray, wound dorsal side mid third MT marked by arrow with redness TECHNIQUE: 3 views COMPARISON: 08/15/2014 RESULT: No opaque foreign body is seen in the soft tissues. Bony and joint structures appear intact. IMPRESSION IMPRESSION: No opaque foreign body Vp Lab: [facility] Transcribe Date/Time: Jan 08 2023 12:18P Dictated by : KAMILAH LI MD This examination was interpreted and the report reviewed and electronically signed by: KAMILAH LI MD on Jan 08 2023 12:25PM [facility] Radiology Study observation (narrative) [facility] XR Foot - left AP and Latera l and obliqueOrdered By: Ccf Provider on 01-08-2023 [facility] XR CHEST 2V FRONTAL/LATon [facility] XR Chest PA and Lateralon IMPRESSION: No acute radiographic abnormality. Vp Lab: [facility] Transcribe Date/Time: Sep 03 2021 10:35A Dictated by : SHANE GIRARD MD This examination was interpreted and the report reviewed and electronically signed by: SHANE GIRARD MD on Sep 03 2021 10:35AM EST [id number]_US E_DIVISION OF RADIOLOGY * * *Final Report* * * DATE OF EXAM: Sep 03 2021 10:06AM WOX 5291 - XR CHEST 2V FRONTAL/LAT / PROCEDURE REASON: multiple diagnoses * * * * Physician Interpretation * * * * EXAMINATION: CHEST RADIOGRAPH (2 VIEW FRONTAL & LATERAL) CLINICAL HISTORY: Cough Chest congestion MQ: XC2_6 EXAM DATE/TIME: 09/03/2021 10:06 AM COMPARISON: 02/10/2021 RESULT: Lines, tubes, and devices: None. Lungs and pleura: No consolidation. No lung mass. No pleural effusion. No pneumothorax. Cardiomediastinal silhouette: Normal cardiomediastinal silhouette. Bones and soft tissues: Unremarkable. [id number]_US E_DIVISION OF RADIOLOGY Provider, [facility] - 09/03/2021 * * *Final Report* * * DATE OF EXAM: Sep 03 2021 10:06AM WOX 5291 - XR CHEST 2V FRONTAL/LAT / PROCEDURE REASON: multiple diagnoses * * * * Physician Interpretation * * * * EXAMINATION: CHEST RADIOGRAPH (2 VIEW FRONTAL & LATERAL) CLINICAL HISTORY: Cough Chest congestion MQ: XC2_6 EXAM DATE/TIME: 09/03/2021 10:06 AM COMPARISON: 02/10/2021 RESULT: Lines, tubes, and devices: None. Lungs and pleura: No consolidation. No lung mass. No pleural effusion. No pneumothorax. Cardiomediastinal silhouette: Normal cardiomediastinal silhouette. Bones and soft tissues: Unremarkable. IMPRESSION IMPRESSION: No acute radiographic abnormality. Vp Lab: [facility] Transcribe Date/Time: Sep 03 2021 10:35A Dictated by : SHANE GIRARD MD This examination was interpreted and the report reviewed and electronically signed by: SHANE GIRARD MD on Sep 03 2021 10:35AM EST [facility] Radiology Study observation (narrative) [facility] XR Chest PA and LateralOrder ed By: Ccf Provider on 09-03-2021 [facility] XR Humerus - right AP and La teralon 05-28-2021 IMPRESSION: No radiographic evidence of osseous abnormality Vp Lab: [facility] Transcribe Date/Time: May 28 2021 10:55A Dictated by : RENÉE DURAN MD This examination was interpreted and the report reviewed and electronically signed by: RENÉE DURAN MD on May 28 2021 10:55AM EST DIVISION OF RADIOLOGY * * *Final Report* * * DATE OF EXAM: May 28 2021 10:53AM WOX 5355 - XR HUMERUS 2V AP/LAT RT / PROCEDURE REASON: Right arm pain * * * * Physician Interpretation * * * * CLINICAL INDICATION: Pain TECHNIQUE: AP and lateral radiographs of the right humerus COMPARISON: None FINDINGS: No fracture or dislocation identified. No radiographic evidence of destructive osseous lesion. Surgical clips in the proximal visualized forearm. DIVISION OF RADIOLOGY Provider, [facility] - 05/28/2021 * * *Final Report* * * DATE OF EXAM: May 28 2021 10:53AM WOX 5355 - XR HUMERUS 2V AP/LAT RT / PROCEDURE REASON: Right arm pain * * * * Physician Interpretation * * * * CLINICAL INDICATION: Pain TECHNIQUE: AP and lateral radiographs of the right humerus COMPARISON: None FINDINGS: No fracture or dislocation identified. No radiographic evidence of destructive osseous lesion. Surgical clips in the proximal visualized forearm. IMPRESSION IMPRESSION: No radiographic evidence of osseous abnormality [facility] Trans[facility] Date/Time: May 28 2021 10:55A Dictated by : RENÉE DURAN MD This examination was interpreted and the report reviewed and electronically signed by: RENÉE DURAN MD on May 28 2021 10:55AM EST [facility] Radiology Study observation (narrative) [facility] XR Humerus - right AP and La teralOrdered By: Stella Provider on 05-28-2021 [facility] XR Wrist - left PA and Later al and Obliqueon 03-13-2021 IMPRESSION: 3 mm soft tissue calcification along the volar and radial aspect of the wrist. [facility] Trans[facility] Date/Time: Mar 13 2021 8:53A Dictated by : RENÉE DURAN MD This examination was interpreted and the report reviewed and electronically signed by: RENÉE DURAN MD on Mar 13 2021 8:55AM EST DIVISION OF RADIOLOGY * * *Final Report* * * DATE OF EXAM: Mar 13 2021 8:13AM WOX 5270 - XR WRIST 3V PA/LAT/OBL LT / PROCEDURE REASON: Left wrist pain * * * * Physician Interpretation * * * * CLINICAL INDICATION: Nodule along the volar and radial aspect of the wrist TECHNIQUE: 3 view radiographic study of the left wrist COMPARISON: None FINDINGS: Soft tissue calcification identified along the volar and radial aspect of the wrist measuring approximately 3 mm in size. No acute fracture or dislocation identified. DIVISION OF RADIOLOGY Provider, [facility] - 03/13/2021 * * *Final Report* * * DATE OF EXAM: Mar 13 2021 8:13AM WOX 5270 - XR WRIST 3V PA/LAT/OBL LT / PROCEDURE REASON: Left wrist pain * * * * Physician Interpretation * * * * CLINICAL INDICATION: Nodule along the volar and radial aspect of the wrist TECHNIQUE: 3 view radiographic study of the left wrist COMPARISON: None FINDINGS: Soft tissue calcification identified along the volar and radial aspect of the wrist measuring approximately 3 mm in size. No acute fracture or dislocation identified. IMPRESSION IMPRESSION: 3 mm soft tissue calcification along the volar and radial aspect of the wrist. [facility] Transcribe Date/Time: Mar 13 2021 8:53A Dictated by : RENÉE DURAN MD This examination was interpreted and the report reviewed and electronically signed by: RENÉE DURAN MD on Mar 13 2021 8:55AM EST [facility] Radiology Study observation (narrative) [facility] XR Wrist - left PA and Later al and ObliqueOrdered By: Ccf Provider on 03-13-2021 [facility] XR Chest PA and Lateralon IMPRESSION: No acute radiographic abnormality. Vp Lab: [facility] Transcribe Date/Time: Feb 10 2021 11:57A Dictated by : LORRI MOORE MD This examination was interpreted and the report reviewed and electronically signed by: LORRI MOORE MD on Feb 10 2021 11:58AM EST DIVISION OF RADIOLOGY * * *Final Report* * * DATE OF EXAM: Feb 10 2021 11:55AM WOX 5291 - XR CHEST 2V FRONTAL/LAT / PROCEDURE REASON: Cough * * * * Physician Interpretation * * * * EXAMINATION: XR CHEST 2V FRONTAL/LAT Clinical History: Pt states cough for 1+ weeks. Pt. had covid almost 2 months ago.. Cough . MQ: XC2_5 Comparison: none available RESULT: Lines, tubes, and devices: none Lungs and pleura: No consolidation. No lung mass. No pleural effusion. Cardiomediastinal silhouette: Normal. Other: Nipple shadows are visible. There is thoracic degenerative change. - DIVISION OF RADIOLOGY Provider, [facility] - 02/10/2021 * * *Final Report* * * DATE OF EXAM: Feb 10 2021 11:55AM WOX 5291 - XR CHEST 2V FRONTAL/LAT / PROCEDURE REASON: Cough * * * * Physician Interpretation * * * * EXAMINATION: XR CHEST 2V FRONTAL/LAT Clinical History: Pt states cough for 1+ weeks. Pt. had covid almost 2 months ago.. Cough . MQ: XC2_5 Comparison: none available RESULT: Lines, tubes, and devices: none Lungs and pleura: No consolidation. No lung mass. No pleural effusion. Cardiomediastinal silhouette: Normal. Other: Nipple shadows are visible. There is thoracic degenerative change. - IMPRESSION IMPRESSION: No acute radiographic abnormality. Vp Lab: [facility] Transcribe Date/Time: Feb 10 2021 11:57A Dictated by : LORRI MOORE MD This examination was interpreted and the report reviewed and electronically signed by: LORRI MOORE MD on Feb 10 2021 11:58AM EST [facility] Radiology Study observation (narrative) [facility] XR Chest PA and LateralOrder ed By: Ccf Provider on 02-10-2021 [facility] XR Lumbar spine 3 Viewson IMPRESSION: No acute pathology. Degenerative changes in as noted Vp Lab: [facility] Transcribe Date/Time: Jun 22 2020 8:34A Dictated by : BRICE LEMOS DO This examination was interpreted and the report reviewed and electronically signed by: BRICE LEMOS DO on Jun 22 2020 8:38AM [facility] DIVISION OF RADIOLOGY * * *Final Report* * * DATE OF EXAM: Jun 22 2020 8:28AM WOX 5228 - XR LUMBAR 3V AP/LAT/L5-S1 / PROCEDURE REASON: multiple diagnoses * * * * Physician Interpretation * * * * LUMBAR SPINE: EXAM DATE/TIME: 06/22/2020 8:28 AM HISTORY: 60 years old Indication: Acute left-sided low back pain with left-sided sciatica Fall due to slipping on ice or snow, initial encounter pt states fell May 19 on ice, pain in left si joint area TECHNIQUE: Views obtained: XR LUMBAR 3V AP/LAT/L5-S1 Comparison: None. RESULT: Findings: Large amount of fecal debris throughout the colon. No narrowing of the disk spaces is seen. Mild degenerative changes posterior elements L4-S1 The vertebra are in good alignment. No fractures or dislocations are seen. Moderate narrowing of the RIGHT hip joint mild narrowing of the LEFT hip joint. Sacroiliac joints are patent DIVISION OF RADIOLOGY Provider, [facility] - 06/22/2020 * * *Final Report* * * DATE OF EXAM: Jun 22 2020 8:28AM WOX 5228 - XR LUMBAR 3V AP/LAT/L5-S1 / PROCEDURE REASON: multiple diagnoses * * * * Physician Interpretation * * * * LUMBAR SPINE: EXAM DATE/TIME: 06/22/2020 8:28 AM HISTORY: 60 years old Indication: Acute left-sided low back pain with left-sided sciatica Fall due to slipping on ice or snow, initial encounter pt states fell May 19 on ice, pain in left si joint area TECHNIQUE: Views obtained: XR LUMBAR 3V AP/LAT/L5-S1 Comparison: None. RESULT: Findings: Large amount of fecal debris throughout the colon. No narrowing of the disk spaces is seen. Mild degenerative changes posterior elements L4-S1 The vertebra are in good alignment. No fractures or dislocations are seen. Moderate narrowing of the RIGHT hip joint mild narrowing of the LEFT hip joint. Sacroiliac joints are patent IMPRESSION IMPRESSION: No acute pathology. Degenerative changes in as noted Vp Lab: [facility] Transcribe Date/Time: Jun 22 2020 8:34A Dictated by : BRICE LEMOS DO This examination was interpreted and the report reviewed and electronically signed by: BRICE LEMOS DO on Jun 22 2020 8:38AM EST [facility] Radiology Study observation (narrative) [facility] XR Lumbar spine 3 ViewsOrder ed By: Ccf Provider on 06-22-2020 [facility] PROGRESSon 08-21-2018 Protein mass conc HNO ID: [id number] Author: Rolly Garduno III Service: ? Author Type: Physician Type: Progress Notes Filed: 08/25/2018 6:15 PM Note Text: Agustin, You do have some abnormalities on your stress test report. I recommend that you have an appointment to see a brisket puller for heart catheterization. Order for cardiology referral has been entered. My staff will contact you to assist with obtaining appointment. I can recommend Dr. Guardado at [facility], one of the [facility] brisket puller (Dr Mcdowell read the stress test), or you may choose a local brisket puller. Rolly Garduno III MD [facility] NM CARDIAC PERF STRESS/EXERC ISEon 08-20-2018 NM CARDIAC PERF STRESS/EXERCISE * * *Final Report* * * DATE OF EXAM: Aug 20 2018 3:33PM SAMUEL 0004 - NM CARDIAC PERF STRESS/EXERCISE / PROCEDURE REASON: Z13.6-Encounter for screening for cardiovascular disorders * * * * Physician Interpretation * * * * PATIENT: Name: IRISH Hilton Age: 58 years Gender: M CONCLUSIONS: 1. SPECT Perfusion Study: Normal. 2. There is no scintigraphic evidence for inducible ischemia. 3. No evidence of scarred myocardium. 4. Functional capacity N/A (pharmacological). 5. Left ventricle is normal in size. The left ventricle systolic function is normal. 6. Right ventricle is normal in size. The right ventricle systolic function is normal. 7. This is a low risk scan. Gated Stress FBP LVEF % 79 Prior Study Comparison No prior nuclear cardiology exam was performed. Nuclear Med Report:1-Day [id number] Exercise Stress Gated SPECT: Myocardial perfusion imaging was performed at rest 30 to 60 minutes following the IV injection of Tc-99m tetrofosmin. One minute prior to peak exercise, the patient was injected IV with Tc-99m tetrofosmin. Gated post stress tomographic imaging was performed 10 to 20 minutes later. See administered doses below. [facility] Date of service: 08/20/2018 1:56:00 PM Ordering Physician: Rolly Garduno III Requesting Physician: Indication: Preop eval for noncard surg with high risk, poor exercise tolerance, Dyspnea, Heart Failure and Assessment for suspected CAD. Interpreting physician: Néstor Bennett MD Patient History: History of hypertension, diabetes mellitus, dyslipidemia, family hx of premature CAD and Prior smoker. Medications currently taking are ASA, NSAIDS, statins, diuretic, anti-depressants and B-maureen. Height: 167.64 cm BSA: 2.09 m? Weight: 93.90 kg BMI: 33.4 kg/m? Imaging Protocol Limitation Reason G.I. uptake. Exam Type: Rest Stress Radiopharm: Tc-99m Tetrofosmin Tc-99m Tetrofosmin Dosage(mCi): 10.3 32.9 Atten Correction: not performed not performed Stress Agent: Treadmill Resting Heart Rate: 72 bpm Resting Blood Press: 128/72 mmHg Image Quality The overall study imaging quality was deemed to be good. The following technical issues were noted: G.I. uptake. FINDINGS: Left Ventricle Wall Motion: Stress IR:3D - All scored segments are normal. Rest IR:3D - Gated Stress FBP - Reversibility - Stress IR:3D Stress IR:3D Gated Stress FBP LVEF: 79 % ED Volume: 89 ml ES Volume: 19 ml TID: 1.02 Perfusion Findings Stress IR:3D - Summed Score=0 All scored segments reflect normal perfusion. Rest IR:3D - Summed Score=0 All scored segments reflect normal perfusion. Stress IR:3D Rest IR:3D Summed Score=0 Summed Score=0 LEFT VENTRICLE The left ventricle is normal in size. Left ventricular systolic function is normal. Right Ventricle The right ventricle is normal in size. Right ventricle systolic function is normal. Stress Test Findings: There is no scintigraphic evidence for inducible ischemia. There is no evidence of scarring. The stress test was terminated due to the following: Dyspnea. Peak HR 144 bpm. Exercise duration 8 min 31 sec. (88 % MPHR) (10.1 METS) Peak BP 152 mmHg/98 mmHg Patient experienced shortness of breath during stress. Stress ECG showed ST depression. Stress complications: none. The left ventricular cavity size is unchanged with stress. Final Vp Lab: [facility] Transcribe Date/Time: Aug 20 2018 1:56P Dictated by : NÉSTOR BENNETT MD This examination was interpreted and the report reviewed and electronically signed by: NÉSTOR BENNETT MD on Aug 20 2018 3:56PM EST [id number] [facility] NUCLEAR STRESS TEST EXERCISE (CARD)on 08-20-2018 NUCLEAR STRESS TEST EXERCISE (CARD) NAME : JAIRO COBURN PID : [id number] : 1960 Gender : Male Race : ORD : [id number] Procedure Date : Aug 20 2018 15:01:46 Edit Date : Aug 25 2018 12:47:05 Protocol Name : GUMARO Time In Exercise Phase : 00:08:31 Max. Systolic BP : 152 mmHg Max Diastolic BP : 98 mmHg Max Heart Rate : 144 BPM Max Predicted Heart Rate : 164 BPM Recovery ECG Response (OLD) : Reason For Termination : Shortness of breath Test Reason : ASHD Location :[facility] Overread By : MD MCDOWELL GREGORY Edited By : Steph Muhammad Referred By : ROLLY GARDUNO III Acquired by : Steph Muhammad [facility] PROCEDUREon 08-20-2018 Protein mass conc HNO ID: [id number] Author: Oscar Mcdowell DO Service: Cardiovascular Medicine Author Type: Physician Type: Procedures Filed: 08/21/2018 2:06 PM Note Text: [facility]- Stress Test JAIRO COBURN Q : 1960 AGE: 58 SEX: M ACCTNUM: [id number] [facility] SVC: LOCATION: ATTENDING PHYSICIAN: DATE OF STUDY: 08/20/2018 STUDY: Stress portion of the nuclear stress test. ORDERING PHYSICIAN: Dr. Garduno REPORT: The patient exercised on a Gumaro protocol for 8 minutes and 31 seconds for a total of 10 METS, [place] [employer] functional class 1. Heart rate changed from 58 to 144 beats per minute per minute, which was 87% of age predicted maximum. Blood pressure changed from 128/72 to 152/98. Heart rate and blood pressure responses were appropriate. Testing was terminated secondary to shortness of breath. Baseline ECG demonstrated normal sinus rhythm. ECG monitoring demonstrated 1-[address] depression in the inferior lateral leads. No arrhythmias were present throughout study. IMPRESSION: Abnormal ECG response to symptom limited exercise achieving 10 METS and [place] [employer] functional class 1. Exercise tolerance was fair given the patient's relative youth. ECG changes are consistent with ischemia. No arrhythmias are noted. Nuclear imaging is to follow. Oscar Mcdowell D.O. Cardiology GH:[id number] /[id number] [facility] 08-19-2018 CNPN Telephone (CDLBME) -------- JAIRO COBURN ([id number]) 1960 M [facility] Date Time Provider Department 08/19/18 AMY BEYER (JOE) CDLBME During your visit today, we recorded the following information about you: Amy Beyer RN, RN 08/19/2018 2:46 PM Signed Left message regarding reminder for stress test tomorrow and given instructions Allergies As of Date: 08/19/2018 Noted Allergy Reaction COUMADIN (WARFARIN SODIUM) 08/13/2010 2 - Rash Environmental [Other] 04/01/2011 14 - Other: See Comments Comments: Cockroach Dust mites trees (June, July and August) grasses (August and September) weeds (November, December and January) ragweed (November, December and January) NEURONTIN (GABAPENTIN) 03/15/2013 1 - Mental Status Change STRATTERA (ATOMOXETINE HCL) 08/07/2018 14 - Other: See Comments Comments: testicular pain TANZEUM (ALBIGLUTIDE) 12/02/2016 8 - GI Upset Comments: nausea Date Reviewed: 08/03/2018 Reviewed by: [facility] HELEN Dueñas - Fully Assessed Reason for Visit: Reminder Call [[id number]] Prescriptions as of 08/19/2018 Sig: LURASIDONE 40 MG TABLET Take 1 tablet by mouth once d* DULAGLUTIDE 1.5 MG/0.5 ML SUB* Inject 1.5 mg subcutaneously * TAMSULOSIN 0.4 MG CAPSULE Take 1 capsule by mouth daily* FLUTICASONE PROPIONATE 50 MCG* Use 1 [place] in each nostril o* PAROXETINE 40 MG TABLET Take 1 tablet by mouth once d* ATORVASTATIN 80 MG TABLET TAKE 1 TABLET DAILY AT BEDTIM* LANSOPRAZOLE 30 MG CAPSULE,DE* Take 1 capsule by mouth once * METFORMIN 500 MG TABLET Take 1 tablet by mouth twice * LEVOTHYROXINE 150 MCG TABLET TAKE 1 TABLET DAILY ON AN EMP* GLIMEPIRIDE 4 MG TABLET TAKE 1 TABLET DAILY WITH MONISHA* ATENOLOL 100 MG TABLET Take 1 tablet by mouth once d* HYDROCHLOROTHIAZIDE 12.5 MG C* Take 1 capsule by mouth once * BLOOD SUGAR DIAGNOSTIC STRIPS Test blood sugar(s) one time * LANCETS Test blood sugar(s) one time * CHOLECALCIFEROL (VITAMIN D3) * Take 1 capsule by mouth once * CETIRIZINE 10 MG TABLET Take 1 tablet by mouth once d* PERFLUTREN LIPID MICROSPHERES* Inject 1.3 mL intravenously a* TESTOSTERONE CYPIONATE 200 MG* Inject 0.5 mL intramuscularly* SYRINGE WITH NEEDLE 3 ML 23 G* 1 Each every 2 weeks. JARDIANCE 25 MG TABLET TAKE 1 TABLET DAILY CPAP Initiate CPAP @ 5-15 cm of wa* * ECOTRIN LOW STRENGTH 81 MG TA* Take one(1) tablet daily. Problem List As Of Date 08/19/2018 Noted Resolved Hypothyroidism [E03.9] Thyrotoxicosis without mention of goiter or oth* 04/28/2014 ALLERGIC RHINITIS NEC [J30.89] ADJUSTMENT DISORDER WITH DEPRESSED MOOD [F43.21]INVALID FOR* Anxiety state [F41.1] INVALID FOR* Lumbago [M54.5] INVALID FOR*04/28/2014 BENIGN HYPERTENSION [I10] INVALID FOR* More... 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 Uncontrolled type 2 diabetes mellitus without c*INVALID FOR* Internal derangement of knee [M23.90] INVALID FOR* Essential tremor [G25.0] INVALID FOR* ED (erectile dysfunction) of organic origin [N5*INVALID FOR* Allodynia [R20.8] INVALID FOR* Lumbar radiculopathy [M54.16] INVALID FOR* More... Low testosterone in male [R79.89] INVALID FOR* Dysphagia [R13.10] INVALID FOR* More... Hyperprolactinemia (HCC) [E22.1] INVALID FOR* Hypogonadism in male [E29.1] INVALID FOR* Arteriosclerosis of carotid artery [I65.29] INVALID FOR* Bipolar I disorder (HCC) [F31.9] INVALID FOR* Chronic fatigue [R53.82] INVALID FOR* ASHD (arteriosclerotic heart disease) [I25.10] INVALID FOR* Encounter Status:Closed by AMY BEYER on 08/19/18 [facility] PROGRESS 04-12-2018 Protein mass conc HNO ID: [id number] Author: Chelo Harvey Service: (none) Author Type: Nurse Practitioner Type: Progress Notes Filed: 04/12/2018 4:23 PM Note Text: Normal [facility] Vital Signs Date Time Vital Sign Value Performing Clinician Sadia guptafilemon 05-24-2024 11:00-0500 Body mass index (BMI) [Ratio] 30.49 kg/m2 Shara Lynn APRN.LOGISTICS TECH Work Phone: [facility] 05-24-2024 11:00-0500 Body temperature 99.7 [degF] Shara Lynn APRN.LOGISTICS TECH Work Phone: [facility] 05-24-2024 11:00-0500 Body weight 85.7 kg Shara Lynn APRN.LOGISTICS TECH Work Phone: [facility] 05-24-2024 11:00-0500 Diastolic blood pressure 80 mm[Hg] Shara Lynn APRN.LOGISTICS TECH Work Phone: [facility] 05-24-2024 11:00-0500 Heart rate 84 /min Shara Lynn APRN.LOGISTICS TECH Work Phone: [facility] 05-24-2024 11:00-0500 Respiratory rate 16 /min Shara Lynn APRN.LOGISTICS TECH Work Phone: [facility] 05-24-2024 11:00-0500 SaO2% (BldA) [Mass fraction] 94 % Shara Lynn APRN.LOGISTICS TECH Work Phone: [facility] 05-24-2024 11:00-0500 Systolic blood pressure 124 mm[Hg] Shara Lynn APRN.LOGISTICS TECH Work Phone: [facility] 12-17-2023 16:00-0400 Body mass index (BMI) [Ratio] 29.39 kg/m2 Carla Chong APRN.LOGISTICS TECH Work Phone: [facility] 12-17-2023 16:00-0400 Body temperature 98.4 [degF] Carla Chong APRN.LOGISTICS TECH Work Phone: [facility] 12-17-2023 16:00-0400 Body weight 82.6 kg Carla Chong WIRE FRAME LAMPSHADE MAKER.LOGISTICS TECH Work Phone: [facility] 12-17-2023 16:00-0400 Diastolic blood pressure 60 mm[Hg] Carla Chong WIRE FRAME LAMPSHADE MAKER.LOGISTICS TECH Work Phone: [facility] 12-17-2023 16:00-0400 Heart rate 75 /min Carla Chong WIRE FRAME LAMPSHADE MAKER.LOGISTICS TECH Work Phone: [facility] 12-17-2023 16:00-0400 Respiratory rate 18 /min Carla Chong WIRE FRAME LAMPSHADE MAKER.LOGISTICS TECH Work Phone: [facility] 12-17-2023 16:00-0400 SaO2% (BldA) [Mass fraction] 98 % Carla Chong WIRE FRAME LAMPSHADE MAKER.LOGISTICS TECH Work Phone: [facility] 12-17-2023 16:00-0400 Systolic blood pressure 140 mm[Hg] Carla Chong WIRE FRAME LAMPSHADE MAKER.LOGISTICS TECH Work Phone: [facility] 11-18-2023 08:38-0400 Body mass index (BMI) [Ratio] 29.61 kg/m2 Cindi Nunez MD Work Phone: [facility] 11-18-2023 08:38-0400 Body weight 83.2 kg Cindi Nunez MD Work Phone: [facility] 11-18-2023 08:38-0400 Diastolic blood pressure 74 mm[Hg] Cindi Nunez MD Work Phone: [facility] 11-18-2023 08:38-0400 Heart rate 78 /min Cindi Nunez MD Work Phone: [facility] 11-18-2023 08:38-0400 Respiratory rate 18 /min Cindi Nunez MD Work Phone: [facility] 11-18-2023 08:38-0400 Systolic blood pressure 126 mm[Hg] Cindi Nunez MD Work Phone: [facility] 09-16-2023 07:37-0400 Body mass index (BMI) [Ratio] 29 kg/m2 Krislyn Aberegg PA Work Phone: [facility] 09-16-2023 07:37-0400 Body temperature 98.2 [degF] Krislyn Aberegg PA Work Phone: [facility] 09-16-2023 07:37-0400 Body weight 81.5 kg Krislyn Aberegg PA Work Phone: [facility] 09-16-2023 07:37-0400 Diastolic blood pressure 80 mm[Hg] Krislyn Aberegg PA Work Phone: [facility] 09-16-2023 07:37-0400 Heart rate 78 /min Krislyn Aberegg PA Work Phone: [facility] 09-16-2023 07:37-0400 Respiratory rate 16 /min Krislyn Aberegg PA Work Phone: [facility] 09-16-2023 07:37-0400 SaO2% (BldA) [Mass fraction] 95 % Krislyn Aberegg PA Work Phone: [facility] 09-16-2023 07:37-0400 Systolic blood pressure 132 mm[Hg] Krislyn Aberegg PA Work Phone: [facility] 10-10-2022 15:09-0400 Body height 167.6 cm Reyna [place] PA-C Work Phone: [facility] 10-10-2022 15:09-0400 Body temperature 96.91 [degF] Reyna Jaylene PA-C Work Phone: [facility] 10-10-2022 15:09-0400 Body weight 85.73 kg Reyna Jaylene PA-C Work Phone: [facility] 10-10-2022 15:09-0400 Diastolic blood pressure 88 mm[Hg] Reyna [place] PA-C Work Phone: [facility] 10-10-2022 15:09-0400 Heart rate 72 /min Reyna Jaylene PA-C Work Phone: [facility] 10-10-2022 15:09-0400 SaO2% (BldA) [Mass fraction] 97 % Reyna Mariee PA-C Work Phone: [facility] 10-10-2022 15:09-0400 Systolic blood pressure 140 mm[Hg] Reyna Mariee PA-C Work Phone: [facility] 09-03-2021 09:36-0400 Body temperature 98.29 [degF] Gina Paco WIRE FRAME LAMPSHADE MAKER.LOGISTICS TECH Work Phone: [facility] 09-03-2021 09:36-0400 Body weight 80.29 kg Gina Paco WIRE FRAME LAMPSHADE MAKER.LOGISTICS TECH Work Phone: [facility] 09-03-2021 09:36-0400 Diastolic blood pressure 76 mm[Hg] Gina Paco WIRE FRAME LAMPSHADE MAKER.LOGISTICS TECH Work Phone: [facility] 09-03-2021 09:36-0400 Heart rate 66 /min Gina Paco WIRE FRAME LAMPSHADE MAKER.LOGISTICS TECH Work Phone: [facility] 09-03-2021 09:36-0400 Respiratory rate 16 /min Gina Paco WIRE FRAME LAMPSHADE MAKER.LOGISTICS TECH Work Phone: [facility] 09-03-2021 09:36-0400 SaO2% (BldA) [Mass fraction] 98 % Gina Paco WIRE FRAME LAMPSHADE MAKER.LOGISTICS TECH Work Phone: [facility] 09-03-2021 09:36-0400 Systolic blood pressure 122 mm[Hg] Gina Paco WIRE FRAME LAMPSHADE MAKER.LOGISTICS TECH Work Phone: [facility] Encounters Encounter Date Encounter Type Care Provider Facility Start: 02-19-2025 ambulatory Shelly Villar [facility] Facility y:[facility] Start: 09-22-2024 End: 09-22-[address] Irene Amanda MD -[facility] Work Phone: Start: 09-22-2024 End: 09-22-2024 ambulatory No Primary Care Physician [facility] Work Phone: Start: 05-24-2024 End: 05-24-2024 Subsequent hospital visit by physician Xr [facility] [place] Work Phone: Radiology Comment on above: Acute cough [R05.1] Start: 05-24-2024 End: 05-24-2024 ambulatory CINDI NUNEZ Facility:[facility] Start: 05-24-2024 End: 05-24-2024 Patient encounter procedure Shara Lynn APRN.LOGISTICS TECH Work Phone: [facility] Comment on above: URI, acute (Primary Dx); Acute cough; Flu Start: 12-18-2023 End: 12-18-2023 Telephone encounter Cindi Nunez MD Work Phone: [facility] [place] Comment on above: Patient Update; Kat ent Request Start: 12-17-2023 End: 12-17-2023 Patient encounter procedure Carla Chong APRN.LOGISTICS TECH Work Phone: [facility] Comment on above: Pain, dental (Primar y Dx) Start: 11-18-2023 End: 11-18-2023 Patient encounter procedure Cindi Nunez MD Work Phone: [facility] Comment on above: Type 2 diabetes constantine itus without complication, without long- term current use of insulin (HCC) (Primary Dx); Essential hypertension, benign; Hyperlipidemia with target LDL less than 100; Hypothyroidism, unspecified type; Hypogonadism in male; Adjustment disorder with depressed mood; Osteoarthritis of cervical spine, unspecified spinal osteoarthritis complication status; FATIMAH (obstructive sleep apnea); GERD without esophagitis; Acute left-sided low back pain with left-sided sciatica; Gastroparesis; Chronic nausea Start: 09-16-2023 End: 09-16-2023 Patient encounter procedure Sangeetha CHASE Work Phone: [facility] Comment on above: Allergic dermatitis (Primary Dx) Start: 07-12-2023 Refill Cindi larios MD Work Phone: [facility] [place] Comment on above: Refill Request Start: 01-08-2023 End: 01-08-2023 Subsequent hospital visit by physician Noemy [facility] Work Phone: Radiology Comment on above: Puncture wound [T14. 8XXA] Start: 10-10-2022 End: 10-10-2022 Patient encounter procedure Reyna Mariee PA-C Work Phone: General Surgery Comment on above: Diverticulosis (Prim smith Dx); Screening for colon cancer; History of colonic polyps Start: 10-05-2022 Telephone encounter China navas APRN.CNP Work Phone: [facility] Comment on above: Results (Labs ) Start: 10-04-2022 Refill Cindi larios MD Work Phone: [facility] Comment on above: Refill Request Start: 08-02-2022 Refill Cindi larios MD Work Phone: [facility] [place] Comment on above: Refill Request Start: 02-18-2022 Refill Cindi larios MD Work Phone: [facility] Comment on above: Refill Request Start: 02-10-2022 ambulatory China Torres APRN.LOGISTICS TECH Work Phone: [facility] Comment on above: Glucose Meter Start: 01-26-2022 Refill Cindi larios MD Work Phone: [facility] Comment on above: Refill Request (Gluc ose Meter) Start: 10-24-2021 Telephone encounter Mara Randall APRN.CNP Work Phone: Gastroenterology Comment on above: Appointment Reschedu led Start: 10-15-2021 Refill Slim Hurst APRN.CNP, DNP Work Phone: [facility] Comment on above: Refill Request Start: 09-03-2021 End: 09-03-2021 Subsequent hospital visit by physician Noemy [facility] [place] Work Phone: Radiology Comment on above: Cough [R05.9] Start: 09-03-2021 End: 09-03-2021 Patient encounter procedure Gina Antonio APRN.CNP Work Phone: [facility] Comment on above: Cough (Primary Dx); Chest congestion; Suspected COVID-19 virus infection Start: 07-14-2021 Refill [facility] Provider [facility] [place] Comment on above: Refill Request Start: 05-28-2021 End: 05-28-2021 Subsequent hospital visit by physician Xr [facility] [place] Work Phone: Radiology Comment on above: Right arm pain [M79. 601] Start: 03-13-2021 End: 03-13-2021 Subsequent hospital visit by physician Xr [facility] [place] Work Phone: Radiology Comment on above: Left wrist pain [M25 .532] Start: 02-10-2021 End: 02-10-2021 Subsequent hospital visit by physician Xr [facility] [place] Work Phone: Radiology Comment on above: Cough [R05.9] Start: 06-22-2020 End: 06-22-2020 Subsequent hospital visit by physician Xr [facility] [place] Work Phone: Radiology Comment on above: Acute left-sided low back pain with left-sided sciatica [M54.42] Start: 04-12-2018 End: 04-12-2018 Patient encounter procedure CHELO (AKBAR) FAMILIA [facility] Procedures Date Procedure Procedure Detail Performing Clinician Start: 05-24-2024 Radiologic exam ches t 2 views Shara Lynn APRN.AKBAR Work Phone: Start: 05-24-2024 INFLUENZA A&B MOLECU LAR (POC) Shara Lynn APRN.LOGISTICS TECH Work Phone: Start: 01-08-2023 Radex foot complete minimum 3 views Shara Lynn APRN.LOGISTICS TECH Work Phone: Start: 09-03-2021 Radiologic exam ches t 2 views Gina Antonio APRN.LOGISTICS TECH Work Phone: Start: 05-28-2021 Radex humerus minimu m 2 views Blas Mares WIRE FRAME LAMPSHADE MAKER.LOGISTICS TECH Work Phone: Start: 03-13-2021 Radex wrist complete minimum 3 views Slim Hurst APRN.LOGISTICS TECH, DNP Work Phone: Start: 02-10-2021 Radiologic exam ches t 2 views Gina Antonio WIRE FRAME LAMPSHADE MAKER.LOGISTICS TECH Work Phone: Start: 06-22-2020 Radex spine lumbosac ral 2/3 views Slim Hurst WIRE FRAME LAMPSHADE MAKER.LOGISTICS TECH, DNP Work Phone: Start: 03-27-2016 Colonoscopy [facility] Provid er Laboratory test resu lt abnormal Abnormal laboratory test China Torres WIRE FRAME LAMPSHADE MAKER.LOGISTICS TECH Work Phone: Plan of Treatment Date Care Activity Detail Author Start: 09-17-2028 Urine microalbumin profile [facility] Start: 11-17-2024 Annual PCP Team Hemodialysis Patient Care Specialist livia Disease Visit Annual PCP Team Chronic Disease Visit [facility] Start: 11-17-2024 BP Controlled (<130/80) BP Controlle d (<130/80) [facility] Start: 05-13-2024 Annual PCP Team Hemodialysis Patient Care Specialist livia Disease Visit Annual PCP Team Chronic Disease Visit [facility] Start: 05-13-2024 BP Controlled (<130/80) BP Controlle d (<130/80) [facility] Start: 05-13-2024 Covid-19 Vaccine ( season) Covid-19 Vaccine () [facility] Comment on above: Postponed from 12/13 (Declined at this time) Start: 12-14-2023 Covid-19 Vaccine () Covid-19 Vaccine () [facility] Start: 12-14-2023 Covid-19 Vaccine () Covid-19 Vaccine () [facility] Start: 11-18-2023 End: 02-17-2024 CBC panel - Blood by Automated count COMPLETE BLOOD COUNT Lab Routine Essential hypertension, benign Expected: 11/18/2023 (Approximate), Expires: 02/17/2024 [facility] Comment on above: Expected: 11/18/2023 (Approximate), Expires: 02/17/2024 Start: 11-18-2023 End: 02-17-2024 Comprehensive metabolic 2000 panel - Serum or Plasma COMPREHENSIVE METABOLIC PANEL Lab Routine Type 2 diabetes mellitus without complication, without long-term current use of insulin (HCC) Hyperlipidemia with target LDL less than 100 Expected: 11/18/2023 (Approximate), Expires: 02/17/2024 [facility] Work Phone: Comment on above: Expected: 11/18/2023 (Approximate), Expires: 02/17/2024 Start: 11-18-2023 End: 02-17-2024 Hemoglobin A1c in Blood HEMOGLOBIN A1C Lab Routine Type 2 diabetes mellitus without complication, without long-term current use of insulin (HCC) Expected: 11/18/2023 (Approximate), Expires: 02/17/2024 [facility] Comment on above: Expected: 11/18/2023 (Approximate), Expires: 02/17/2024 Start: 11-18-2023 End: 02-17-2024 Lipid 1996 panel - Serum or Plasma LIPID PANEL BASIC Lab Routine Type 2 diabetes mellitus without complication, without long-term current use of insulin (HCC) Essential hypertension, benign Hyperlipidemia with target LDL less than 100 Expected: 11/18/2023 (Approximate), Expires: 02/17/2024 [facility] Comment on above: Expected: 11/18/2023 (Approximate), Expires: 02/17/2024 Start: 11-18-2023 End: 02-17-2024 Microalbumin/Creatinine [Mass Ratio] in Urine ALBUMIN/CREATININE RATIO, URINE Lab Routine Type 2 diabetes mellitus without complication, without long-term current use of insulin (HCC) Expected: 11/18/2023 (Approximate), Expires: 02/17/2024 [facility] Comment on above: Expected: 11/18/2023 (Approximate), Expires: 02/17/2024 Start: 11-18-2023 End: 02-17-2024 Thyrotropin [Units/volume] in Serum or Plasma THYROID STIMULATING HORMONE Lab Routine Hypothyroidism, unspecified type Expected: 11/18/2023 (Approximate), Expires: 02/17/2024 [facility] Comment on above: Expected: 11/18/2023 (Approximate), Expires: 02/17/2024 Start: 11-18-2023 End: 11-18-2023 Patient encounter procedure 11/18/2023 8:40 AM EDT Office Visit [facility] [address] [place] [address] Cindi Nunez MD [address] [place] [address] 6 month f/u [facility] Comment on above: 6 month f/u Start: 11-13-2023 Shingrix Vaccine (2 of 2) Shingrix Vaccine (2 of 2) [facility] Start: 10-29-2023 PROSTATE CANCER SCREENING DISCUSSION PROSTATE CANCER SCREENING DISCUSSION [facility] Start: 10-29-2023 Prostate specific antigen measurement Prostate Cancer Screening Discussion [facility] Start: 10-01-2023 Hepatitis B screening URINE AL BUMIN:CREATININE RATIO [facility] Start: 10-01-2023 Hepatitis B surface antibody level LDL CHOLESTEROL [facility] Start: 09-24-2023 ANNUAL PCP TEAM COOLER SERVICE SUPERVISOR LIVIA DISEASE VISIT ANNUAL PCP TEAM CHRONIC DISEASE VISIT [facility] Start: 09-24-2023 BP CONTROLLED (<130/80) BP CONTROLLE D (<130/80) [facility] Start: 04-01-2023 Hemoglobin A1c measurement HbA1C [facility] Start: 04-01-2023 Hemoglobin A1c/Hemoglobin.total in Blood HBA1C [facility] Start: 01-25-2023 ANNUAL PCP TEAM COOLER SERVICE SUPERVISOR LIVIA DISEASE VISIT ANNUAL PCP TEAM CHRONIC DISEASE VISIT [facility] Start: 10-05-2022 End: 12-05-2022 Comprehensive metabolic 2000 panel - Serum or Plasma COMP METABOLIC PANEL Lab Routine Abnormal laboratory test Hypokalemia Expected: 10/05/2022, Expires: 12/05/2022 [facility] Work Phone: Comment on above: Expected: 10/05/2022 , Expires: 12/05/2022 Start: 09-03-2022 BP CONTROLLED (<130/80) BP CONTROLLE D (<130/80) [facility] Start: 08-09-2022 Hepatitis B screening URINE AL BUMIN:CREATININE RATIO [facility] Start: 08-07-2022 ANNUAL PCP TEAM COOLER SERVICE SUPERVISOR LIVIA DISEASE VISIT ANNUAL PCP TEAM CHRONIC DISEASE VISIT [facility] Start: 08-06-2022 Hepatitis B surface antibody level LDL CHOLESTEROL [facility] Start: 03-13-2022 ANNUAL PCP TEAM COOLER SERVICE SUPERVISOR LIVIA DISEASE VISIT ANNUAL PCP TEAM CHRONIC DISEASE VISIT [facility] Start: 02-05-2022 Hemoglobin A1c/Hemoglobin.total in Blood HBA1C [facility] Start: 09-03-2021 End: 09-17-2021 Influenza virus A and B RNA and SARS-CoV-2 (COVID-19) N gene panel - Respiratory specimen by FELA with probe detection COVID WITH FLUA+B, ROUTINE Microbiology Routine Cough Chest congestion Suspected COVID-19 virus infection Expected: 09/03/2021, Expires: 09/17/2021 [facility] Work Phone: Comment on above: Expected: 09/03/2021 , Expires: 09/17/2021 Start: 08-08-2021 COVID-19 VACCINE (4 - Booster for Moderna series) COVID-19 VACCINE (4 - Booster for Moderna series) [facility] Start: 06-26-2021 3 comp foot exam completed DIABETIC FOOT EXAM [facility] Start: 06-26-2021 Diabetic foot examination Diabetic Foot Exam [facility] Start: 06-22-2021 BP CONTROLLED (<130/80) BP CONTROLLE D (<130/80) [facility] Start: 06-22-2021 Hepatitis B screening URINE AL BUMIN:CREATININE RATIO [facility] Start: 06-22-2021 Hepatitis B surface antibody level LDL CHOLESTEROL [facility] Start: 06-04-2021 COVID-19 VACCINE (4 - Booster for Moderna series) COVID-19 VACCINE (4 - Booster for Moderna series) [facility] Start: 03-27-2021 Colonoscopy COLONOSCOPY [facility] Start: 03-27-2021 COLORECTAL CANCER SCREENING COLORECTAL CANCER SCREENING [facility] Start: 03-27-2021 Screening for malign ant neoplasm of colon [facility] Start: 12-23-2020 Hemoglobin A1c/Hemoglobin.total in Blood HBA1C [facility] Start: 01-26-2019 Glaucoma screening Dilated Retinal E xam [facility] Start: 01-26-2019 Hepatitis C antibody , confirmatory test DILATED RETINAL EXAM [facility] Start: 06-18-2017 PNEUMOCOCCAL (2 - PCV) PNEUMOCOCCAL (2 - PCV) [facility] Start: 01-05-2012 SHINGRIX VACCINE (1 of 2) SHINGRIX VACCINE (1 of 2) [facility] Start: 2007 COLOGUARD (FIT-DNA) COLOGUARD (FIT-D NA) [facility] Start: [address] COLONOGRAPHY [facility] Start: 2007 FECAL OCCULT BLOOD FECAL OCCULT BLOO D [facility] Start: 2007 Screening for malign ant neoplasm of colon [facility] Start: 2007 SIGMOIDOSCOPY SIGMOIDOSCOPY [facility] Start: 1981 HEPATITIS B (1 of 3 - Risk 3-dose series) HEPATITIS B (1 of 3 - Risk 3-dose series) [facility] Immunizations Immunization Date Immunization Notes Care Provider [facility] 05-13-2023 pneumococcal conjuga te (PCV20) vaccine, 20 valent (PREVNAR 20) Cindi Nunez MD Work Phone: [facility] 05-13-2023 respiratory syncytia l virus (RSV) vaccine, bivalent (ABRYSVO) Cindi Nunez MD Work Phone: [facility] 01-25-2022 influenza, injectabl e, quadrivalent, contains preservative Cindi Nunez MD Work Phone: [facility] 09-17-2018 tetanus toxoid, redu eugenio diphtheria toxoid, and acellular pertussis vaccine, adsorbed [facility] Provider [facility] 01-09-2017 influenza, injectabl e, quadrivalent, contains preservative f Provider [facility] 06-18-2016 pneumococcal polysaccharide vaccine, 23 valent f Provider [facility] 12-29-2015 influenza, injectabl e, quadrivalent, contains preservative f Provider [facility] 02-19-2013 influenza virus vacc ine, unspecified formulation f Provider [facility] 02-17-2012 influenza virus vacc ine, unspecified formulation f Provider [facility] 02-18-2011 influenza virus vacc ine, unspecified formulation f Provider [facility] Work Phone: 04-04-2010 influenza virus vacc ine, unspecified formulation f Provider [facility] Work Phone: 02-16-2009 influenza virus vacc ine, unspecified formulation f Provider [facility] 04-27-2007 influenza virus vacc ine, unspecified formulation [facility] Provider [facility] Work Phone: 09-04-2006 tetanus toxoid, redu eugenio diphtheria toxoid, and acellular pertussis vaccine, adsorbed [facility] Provider [facility] Payers Date Payer Category Payer Unknown [id number] 2024 Self-pay 2024 Unknown [id number] 2003 Government (not [facility] or Medicaid) [facility] [id number] 2003 Unknown [facility] [id number] 2003-Present [phone] [place] [id number] Indemnity [id number] 2003 Unknown [facility] [id number] 2003-Present [phone] [id number] Indemnity [id number] 2003 Self-pay [id number] Unknown [id number] Unknown [id number] Social History Date Type Detail Facility Start: 01-25-2022 End: 12-17-2023 Tobacco smoking status NHIS Ex-smoker [facility] History of tobacco use Chews Tobacco [facility] Start: 06-08-2021 End: 12-17-2023 Alcohol intake Current non-drinker of alcohol (finding) [facility] Start: 08-21-2019 End: 01-25-2022 History SDOH Alcohol Frequency 1 [facility] Start: 08-21-2019 End: 01-25-2022 History SDOH Social Connections Phone 2 [facility] Start: 08-21-2019 History SDOH Social Connections Jainism 3 [facility] Start: 08-21-2019 History SDOH Physical Activity DPW 0 [facility] Start: 08-21-2019 History SDOH Financial 5 [facility] Start: 08-20-2019 Education 17 [facility] Start: 09-04-2006 End: 01-25-2022 Tobacco Comment quit smoking late [facility] Start: 1960 Sex Assigned At Male [facility] Start: 05-23-2020 End: 01-25-2022 Exposure to SARS-CoV-2 (event) Not sure [facility] Work Phone: History of tobacco use Current smoker [facility] History of tobacco use Cigarette Smoker C [facility] Start: 01-25-2022 End: 09-23-2022 Cigarettes smoked current (pack per day) - Reported 0.3 [facility] Start: 01-25-2022 End: 12-17-2023 Tobacco use and exposure User of smokeless tobacco [facility] Start: 08-20-2019 End: 09-23-2022 Social connection and isolation panel [facility] Do you belong to any clubs or organizations such as restorationism groups, unions, fraternal or athletic groups, or school groups? Yes [facility] Are you now , , , , never or living with a partner? [facility] How often to you hav e a drink containing alcohol? Never [facility] How many standard dr inks containing alcohol do you have on a typical day? 1 or 2 [facility] How hard is it for y ou to pay for the very basics like food, housing, medical care, and heating Not hard at all [facility] Do you feel stress - tense, restless, nervous, or anxious, or unable to sleep at night because your mind is troubled all the time - these days [OSQ] Only a little [facility] (I/We) worried david er (my/our) food would run out before (I/we) got money to buy more. Never true [facility] In the past 12 month s, was there a time when you were not able to pay the mortgage or rent on time? No [facility] Start: 06-22-2020 Gender identity Identifies as male gender (finding) [facility] Start: 10-12-2019 Sexual orientation Heterosexual (finding) [facility] Start: 03-30-2019 Tobacco smoking status NHIS Unknown if ever smoked [facility] Start: 11-13-2020 Alcohol Alcohol [facility] Start: 11-13-2020 Tobacco Use Tobacco Use [facility] Medical Equipment Procedure Code Equipment Code Equipment Original Text Equipment Identifier Dates [id number], [id number], [id number], [id number], [id number], [id number] Start: 03-31-2018 End: 01-25-2022 Comment on above: Test blood sugar(s) one time daily. Dx: impaired fasting glucose. Insulin: No 1 Each every 2 weeks . Test blood sugar(s) 1 times daily. Dx: Type 2 DM - Controlled E11.9 Insulin: No Functional Status Date Assessment Result Facility 12-03-2017 Are you deaf, or do you have serious difficulty hearing No 12/03/2017 1:20 PM Rolly White III, MD No [facility] 12-03-2017 Are you blind, or do you have serious difficulty seeing, even when wearing glasses No 12/03/2017 1:20 PM Rolly White III, MD [facility] 12-03-2017 Do you have serious difficulty walking or climbing stairs No 12/03/2017 1:20 PM Rolly White III, MD [facility] 12-03-2017 Do you have difficul ty dressing or bathing No 12/03/2017 1:20 PM Rolly White III, MD [facility] 12-03-2017 Because of a physica l, mental, or emotional condition, do you have difficulty doing errands alone such as visiting a physician's office or shopping No 12/03/2017 1:20 PM EDT Rolly Garduno III, MD No [facility] Mental Status Date Assessment Result Facility 12-03-2017 Because of a physica l, mental, or emotional condition, do you have serious difficulty concentrating, remembering, or making decisions No 12/03/2017 1:20 PM EDT Rolly Garduno III, MD No [facility] Clinical Notes 01-31-2015 to 05-24-2024 Sue Miles Tech - 05/24/2024 11:20 AM Shara Lawrence APRN.LOGISTICS TECH - 05/24/2024 11:05 AM ESTTelephone Encounter - Carla Chong APRN.[facility] - 12/18/2023 3:16 PM EDTPatient Instructions Note Date & Type Note Facility 05-24-2024 History of Presen t illness Narrative Radiology Service Progress Note PATIENT NAME: Jairo Coburn DATE OF SERVICE: May 24, 2024 TIME: 11:25 AM PATIENT IDENTITY VERIFICATION COMPLETED USING TWO (2) IDENTIFIERS: Name and Date of confirmed by patient verbally. FALL SCREENING: Has the patient had 2 falls in the last year or 1 fall with injury or currently using an Ambulatory Assistive Device (Walker, Cane, Wheelchair, Crutches, etc.)? No PATIENT GENDER DATA: Assigned male at PATIENT RELEVANT IMPLANT DATA REVIEWED: Not Applicable PATIENT PRESENTS WITH AN IMPLANTABLE OR ATTACHED OFFICE WORKER: No RADIOLOGY DEPARTMENT: General X-ray: Exam(s) Completed: Chest X-Ray PERIPHERAL IV DATA: Not applicable SIGNED BY: Betty Whitney May 24, 2024 11:25 AM documented in this encounter [facility] 05-24-2024 Note HNO ID: [id number] Author: SUE MILES Tech Service: ? Author Type: Technologist Type: Progress Notes Filed: 05/24/2024 11:25 Note Text: Radiology Service Progress Note PATIENT NAME: Jairo Coburn DATE OF SERVICE: May 24, 2024 TIME: 11:25 AM PATIENT IDENTITY VERIFICATION COMPLETED USING TWO (2) IDENTIFIERS: Name and Date of confirmed by patient verbally. FALL SCREENING: Has the patient had 2 falls in the last year or 1 fall with injury or currently using an Ambulatory Assistive Device (Walker, Cane, Wheelchair, Crutches, etc.)? No PATIENT GENDER DATA: Assigned male at PATIENT RELEVANT IMPLANT DATA REVIEWED: Not Applicable PATIENT PRESENTS WITH AN IMPLANTABLE OR ATTACHED OFFICE WORKER: No RADIOLOGY DEPARTMENT: General X-ray: Exam(s) Completed: Chest X-Ray PERIPHERAL IV DATA: Not applicable SIGNED BY: Betty Whitney May 24, 2024 11:25 AM [facility] 05-24-2024 Note HNO ID: [id number] Author: SHARA LYNN APRN.LOGISTICS TECH Service: ? Author Type: Nurse Practitioner Type: Progress Notes Filed: 05/24/2024 11:32 Note Text: CC: Patient presents with: Cough: congestion, headache, bodyaches, fever x last night HPI: Jairo Coburn is a 64 year old male who presents to the office with complaint of chest congestion, head congestion, cough, nonproductive, says feels tight to breath, sinus symptoms, and fever since last night. Symptoms are staying the same. Associated symptoms includes headache and body aches. Denies nausea, vomiting , and diarrhea. Treatments tried include nothing so far. with no relief of symptoms. Sick contacts: unknown. History of asthma, frequent episodes of bronchitis, chronic bronchitis, bronchiectasis or COPD: No Smoker: No Seasonal/environmental allergies: No The ROS is otherwise negative. The patient's pmh, medications, allergies, and past visits are reviewed. PHYSICAL EXAM: BP 124/80 Pulse 84 Temp 37.6 ?C (99.7 ?F) Resp 16 Wt 85.7 kg (188 lb 15 oz) SpO2 94% BMI 30.49 kg/m? General appearance: alert, cooperative, pleasant, in no acute distress Head: Normocephalic Eyes: EOM's intact, conjunctiva pink and moist, no icterus, sclera white, non-injected Ears: Right ear: External ear/canal- Normal, TM - clear with good landmarks. Left ear: External ear/canal- Normal, TM - clear with good landmarks Oropharynx:moist without lesions, No erythema, exudates or tonsillar hypertrophy. Heart: Negative. RRR without obvious murmur, gallop, or rubs. No ectopy. Lungs: clear to auscultation, without rales or wheeze, good air exchange PAST MEDICAL HISTORY Diagnosis Date Abdominal pain, right upper quadrant Allergic rhinitis due to other allergen Bipolar I disorder ([facility]) 06/29/2018 Cervical muscle strain 11/08/2010 Degenerative arthritis of cervical spine 06/23/2012 Diarrhea Fibromyalgia 08/10/2020 GERD (gastroesophageal reflux disease) GI bleed Heart palpitations 07/01/2011 HTN (hypertension) Hyperlipidemia LDL goal < 100 08/13/2010 Lumbar degenerative disc disease 02/17/2012 Lumbar radiculopathy 02/20/2017 RLE Nausea alone Obstructive sleep apnea treated with BiPAP 01/01/2016 01/01/16: pressure 5-15 Other postablative hypothyroidism Pulmonary embolism ([facility]) 08/08/2010 SI joint arthritis 01/17/2014 Thyrotoxicosis without mention of goiter or other cause, without mention of thyrotoxic crisis or storm Type II or unspecified type diabetes mellitus without mention of complication, not stated as uncontrolled 02/02/2012 PAST SURGICAL HISTORY Procedure Laterality Date ARTHRS KNE SURG W/MENISCECTOMY MED/LAT W/SHVG 12/15/2012 Arthroscopy, knee left CIRCUMCISION W/CLAMP/OTH DEV W/BLOCK Circumcision, COLONOSCOPY N/A 03/27/2016 MAC COLONOSCOPY FLX DX W/COLLJ SPEC WHEN PFRMD 04/20/2009 Colonoscopy EGD N/A 03/27/2016 MAC EGD TRANSORAL BIOPSY SINGLE/MULTIPLE 08/16/10 HEMORRHOIDECTOMY INTERNAL RUBBER BAND LIGATIONS Hemorrhoidectomy PAST SURGICAL HISTORY OF vasectomy reversal PAST SURGICAL HISTORY OF L testicle- vericocele PAST SURGICAL HISTORY OF R arm- radial nerve PAST SURGICAL HISTORY OF 06/2007 heart cath at [facility] VASECTOMY UNI/BI SPX W/POSTOP SEMEN EXAMS ALLERGIES Amitriptyline, Coumadin [Warfarin Sodium], Neurontin [Gabapentin], Penicillins, Seasonal Allergies, Strattera [Atomoxetine Hcl], and Tanzeum [Albiglutide] MEDICATIONS glimepiride (AMARYL) 4 mg tablet TAKE 1/2 TABLET DAILY WITH BREAKFAST cyclobenzaprine (FLEXERIL) 10 mg tablet Take 1 tablet by mouth three times a day as needed for muscle spasm or pain. empagliflozin (JARDIANCE) 25 mg tablet Take 1 tablet by mouth once daily. Cholecalciferol, Vitamin D3, 50 mcg (2,000 unit) cap Take 1 capsule by mouth once daily. cetirizine (ZYRTEC) 10 mg tablet Take 1 tablet by mouth once daily. atorvastatin (LIPITOR) 80 mg tablet take 1 tablet by mouth at bedtime for cholesterol hydroCHLOROthiazide 12.5 mg capsule Take 1 capsule by mouth once daily. levothyroxine (SYNTHROID) 150 mcg tablet TAKE 1 TABLET DAILY ON AN EMPTY STOMACH FOR THYROID metFORMIN (GLUCOPHAGE) 500 mg tablet Take 1 tablet by mouth two times a day with meals. montelukast (SINGULAIR) 10 mg tablet Take 1 tablet by mouth daily at bedtime. omeprazole (PRILOSEC) 40 mg capsule Take 1 capsule by mouth once daily. ondansetron (ZOFRAN) 4 mg tablet Take 1 tablet by mouth every 8 hours as needed. vilazodone (VIIBRYD) 40 mg tablet ketoconazole (NIZORAL) 2 % cream Apply to affected area once daily. blood sugar diagnostic (BLOOD GLUCOSE TEST) test strip Test blood sugar(s) 1 times daily. Dx: Type 2 DM - Controlled E11.9 Insulin: No Lancets lancets Test blood sugar(s) 1 times daily. Dx: Type 2 DM - Controlled E11.9 Insulin: No blood sugar diagnostic (TRUETRACK TEST) test strip Test blood sugar(s) one time daily. Dx: impaired fasting g (more content not included)... [facility] 05-24-2024 History of Presen t illness Narrative CC: Patient presents with: Cough: congestion, headache, bodyaches, fever x last night HPI: Jairo Coburn is a 64 year old male who presents to the office with complaint of chest congestion, head congestion, cough, nonproductive, says feels tight to breath, sinus symptoms, and fever since last night. Symptoms are staying the same. Associated symptoms includes headache and body aches. Denies nausea, vomiting , and diarrhea. Treatments tried include nothing so far. with no relief of symptoms. Sick contacts: unknown. History of asthma, frequent episodes of bronchitis, chronic bronchitis, bronchiectasis or COPD: No Smoker: No Seasonal/environmental allergies: No The ROS is otherwise negative. The patient's pmh, medications, allergies, and past visits are reviewed. PHYSICAL EXAM: BP 124/80 Pulse 84 Temp 37.6 C (99.7 F) Resp 16 Wt 85.7 kg (188 lb 15 oz) SpO2 94% BMI 30.49 kg/m General appearance: alert, cooperative, pleasant, in no acute distress Head: Normocephalic Eyes: EOM's intact, conjunctiva pink and moist, no icterus, sclera white, non-injected Ears: Right ear: External ear/canal- Normal, TM - clear with good landmarks. Left ear: External ear/canal- Normal, TM - clear with good landmarks Oropharynx:moist without lesions, No erythema, exudates or tonsillar hypertrophy. Heart: Negative. RRR without obvious murmur, gallop, or rubs. No ectopy. Lungs: clear to auscultation, without rales or wheeze, good air exchange PAST MEDICAL HISTORY Diagnosis Date Abdominal pain, right upper quadrant Allergic rhinitis due to other allergen Bipolar I disorder ([facility]) 06/29/2018 Cervical muscle strain 11/08/2010 Degenerative arthritis of cervical spine 06/23/2012 Diarrhea Fibromyalgia 08/10/2020 GERD (gastroesophageal reflux disease) GI bleed Heart palpitations 07/01/2011 HTN (hypertension) Hyperlipidemia LDL goal < 100 08/13/2010 Lumbar degenerative disc disease 02/17/2012 Lumbar radiculopathy 02/20/2017 RLE Nausea alone Obstructive sleep apnea treated with BiPAP 01/01/2016 01/01/16: pressure 5-15 Other postablative hypothyroidism Pulmonary embolism ([facility]) 08/08/2010 SI joint arthritis 01/17/2014 Thyrotoxicosis without mention of goiter or other cause, without mention of thyrotoxic crisis or storm Type II or unspecified type diabetes mellitus without mention of complication, not stated as uncontrolled 02/02/2012 PAST SURGICAL HISTORY Procedure Laterality Date ARTHRS KNE SURG W/MENISCECTOMY MED/LAT W/SHVG 12/15/2012 Arthroscopy, knee left CIRCUMCISION W/CLAMP/OTH DEV W/BLOCK Circumcision, COLONOSCOPY N/A 03/27/2016 MAC COLONOSCOPY FLX DX W/COLLJ SPEC WHEN PFRMD 04/20/2009 Colonoscopy EGD N/A 03/27/2016 MAC EGD TRANSORAL BIOPSY SINGLE/MULTIPLE 08/16/10 HEMORRHOIDECTOMY INTERNAL RUBBER BAND LIGATIONS Hemorrhoidectomy PAST SURGICAL HISTORY OF vasectomy reversal PAST SURGICAL HISTORY OF L testicle- vericocele PAST SURGICAL HISTORY OF R arm- radial nerve PAST SURGICAL HISTORY OF 06/2007 heart cath at [facility] VASECTOMY UNI/BI SPX W/POSTOP SEMEN EXAMS ALLERGIES Amitriptyline, Coumadin [Warfarin Sodium], Neurontin [Gabapentin], Penicillins, Seasonal Allergies, Strattera [Atomoxetine Hcl], and Tanzeum [Albiglutide] MEDICATIONS glimepiride (AMARYL) 4 mg tablet TAKE 1/2 TABLET DAILY WITH BREAKFAST cyclobenzaprine (FLEXERIL) 10 mg tablet Take 1 tablet by mouth three times a day as needed for muscle spasm or pain. empagliflozin (JARDIANCE) 25 mg tablet Take 1 tablet by mouth once daily. Cholecalciferol, Vitamin D3, 50 mcg (2,000 unit) cap Take 1 capsule by mouth once daily. cetirizine (ZYRTEC) 10 mg tablet Take 1 tablet by mouth once daily. atorvastatin (LIPITOR) 80 mg tablet take 1 tablet by mouth at bedtime for cholesterol hydroCHLOROthiazide 12.5 mg capsule Take 1 capsule by mouth once daily. levothyroxine (SYNTHROID) 150 mcg tablet TAKE 1 TABLET DAILY ON AN EMPTY STOMACH FOR THYROID metFORMIN (GLUCOPHAGE) 500 mg tablet Take 1 tablet by mouth two times a day with meals. montelukast (SINGULAIR) 10 mg tablet Take 1 tablet by mouth daily at bedtime. omeprazole (PRILOSEC) 40 mg capsule Take 1 capsule by mouth once daily. ondansetron (ZOFRAN) 4 mg tablet Take 1 tablet by mouth every 8 hours as needed. vilazodone (VIIBRYD) 40 mg tablet ketoconazole (NIZORAL) 2 % cream Apply to affected area once daily. blood sugar diagnostic (BLOOD GLUCOSE TEST) test strip Test blood sugar(s) 1 times daily. Dx: Type 2 DM - Controlled E11.9 Insulin: No Lancets lancets Test blood sugar(s) 1 times daily. Dx: Type 2 DM - Controlled E11.9 Insulin: No blood sugar diagnostic (TRUETRACK TEST) test strip Test blood sugar(s) one time daily. Dx: impaired fasting glucose. Insulin: No Lancets lancets Test blood sugar(s) one time daily. Dx: impaired fasting glucose. Insulin: No Syringe with Needle, Disp, 3 mL 23 gauge x 1 1/2 syrg 1 Each every 2 weeks. CPAP Initiate CPAP @ 5-15 cm of water with humidification. Mask (per patient preference) optional chin strap (if indicated) , filters, tubing, humidifier and lifetime supplies. lisinopril (ZESTRIL) 10 mg tablet Take 1 tablet by mouth once daily. atorvastatin (LIPITOR) 80 mg tablet Take 1 tablet by mouth daily at bedtime. For cholesterol. Cholecalciferol, Vitamin D3, 50 mcg (2,000 unit) cap Take 1 capsule by mouth once daily. empagliflozin (JARDIANCE) 25 mg tablet Take 1 tablet by mouth once daily. Take 1 tablet once daily in the morning glimepiride (AMARYL) 4 mg tablet Take 1 tablet by mouth daily with breakfast. hydroCHLOROthiazide 12.5 mg capsule Take 1 capsule by mouth once daily. levothyroxine (SYNTHROID) 150 mcg tablet Take 1 tablet by mouth daily before breakfast. lisinopril (ZESTRIL) 10 mg tablet Take 1 tablet by mouth once daily. metFORMIN (GLUCOPHAGE) 500 mg tablet Take 1 tablet by mouth two times a day. montelukast (SINGULAIR) 10 mg tablet Take 1 tablet by mouth daily at bedtime. omeprazole (PRILOSEC) 40 mg capsule Take 1 capsule by mouth once daily. FAMILY HISTORY Problem Relation Age of Onset Diabetes Mother Diabetes Sister Diabetes Brother Heart Maternal Grandmother Heart Maternal Grandfather Social History Tobacco Use Smoking status: Former Current packs/day: 0.25 Average packs/day: 0.3 packs/day for 2.0 years (0.5 ttl pk-yrs) Types: Cigarettes Smokeless tobacco: Current Types: Chew Tobacco comments: quit smoking late Vaping Use Vaping status: Never Used Substance Use Topics Alcohol use: No Drug use: No ASSESSMENT/PLAN: 1. URI, acute - ICD9: 465.9, ICD10: J06.9 (primary diagnosis) - INFLUENZA A&B MOLECULAR (POC) -pos 2. Acute cough - ICD9: 786.2, ICD10: R05.1 - XR CHEST 2V FRONTAL/LAT * * * * Physician Interpretation * * * * EXAMINATION: CHEST RADIOGRAPH (2 VIEW FRONTAL & LATERAL) CLINICAL HISTORY: Acute cough MQ: [id number] EXAM DATE/TIME: 05/24/2024 11:25 AM COMPARISON: Chest x-ray dated 09/03/2021 RESULT: Lines, tubes, and devices: None. Lungs and pleura: No consolidation. No lung mass. No pleural effusion. No pneumothorax. Cardiomediastinal silhouette: Normal cardiomediastinal silhouette. Bones and soft tissues: Degenerative changes are present within the thoracic spine. IMPRESSION IMPRESSION: No acute radiographic abnormality. Vp Lab: [facility] Transcribe Date/Time: May 24 2024 11:27A Dictated by : RENÉE DURAN MD 3. Flu - ICD9: 487.1, ICD10: J11.1 - OSELTAMIVIR 75 MG CAPSULE Prescription instructions reviewed with patient as applicable. Potential red flag symptoms discussed with the patient. Reviewed appropriate action plan to take if red flag symptoms occur. Patient agreeable to treatment plan. Shara Lynn APRN.CNP documented in this encounter [facility] 12-18-2023 Telephone encounter Note Changed RX to Clindamycin. Attempted to reach out and inform patient, VM left. [facility] 12-18-2023 Miscellaneous Notes Changed RX to Clindamycin. Attempted to reach out and inform patient, VM left. Patient calling with 2 requests: Requesting an allergy be added for Penicillin. Reports he gets nausea and diarrhea when taking Penicillins. Allergy list updated at this time to include penicillin. Patient reports he began the Augmentin that was ordered for him in [facility] and it has made him nauseated and having severe diarrhea. Pt aware that penicillin was not listed on his allergy list at the time Augmentin was ordered for him. Pt asking for an alternative be sent to [facility]. Please call patient with update. Pat Chahal RN documented in this encounter [facility] 12-18-2023 Telephone encounter Note Patient calling with 2 requests: Requesting an allergy be added for Penicillin. Reports he gets nausea and diarrhea when taking Penicillins. Allergy list updated at this time to include penicillin. Patient reports he began the Augmentin that was ordered for him in [facility] and it has made him nauseated and having severe diarrhea. Pt aware that penicillin was not listed on his allergy list at the time Augmentin was ordered for him. Pt asking for an alternative be sent to [facility]. Please call patient with update. Pat Chahal RN [facility] 12-17-2023 History of Presen t illness Narrative Images from the original note were not included. This note was created using [employer]. Subjective Jairo Coburn is a 63 year old male. Relevant PMH reviewed: HTN, GERD, Type 2 diabetes, Tobacco use Allergies reviewed Pt is a 63 year old male who presents today with left upper tooth pain that started yesterday. Pt states he has a broken tooth that has been broken for a while that started to hurt yesterday. This morning he woke up with left eye and facial swelling. He put ice on his face and took tylenol and ibuprofen which helped to relieve the pain as well as the swelling. Pt states he called his dentist office this morning to be seen and was told there were no available appointment, but he needed to be put on an antibiotic before anything could be done for the tooth. He was then directed to come to Urgent Care to receive an antibiotic. Pt plans to schedule an appointment with the dentist. He has been told he needs to get dentures, but this has not been financially feasible for him right now. He denies any difficulty with eating and drinking. Denies nausea, vomiting, shortness of breath, fever, chest pain, rash and changes in vision. The history is provided by the patient. No photo engraver was used. Dental Problem This is a recurrent problem. The current episode started yesterday. The problem occurs constantly. The problem has been unchanged. Associated symptoms include fatigue. Pertinent negatives include no abdominal pain, chest pain, coughing, fever, headaches, nausea, neck pain, rash, sore throat, visual change or vomiting. Nothing aggravates the symptoms. He has tried NSAIDs and ice for the symptoms. The treatment provided mild relief. PAST MEDICAL HISTORY No date: Abdominal pain, right upper quadrant No date: Allergic rhinitis due to other allergen 06/29/2018: Bipolar I disorder ([facility]) 11/08/2010: Cervical muscle strain 06/23/2012: Degenerative arthritis of cervical spine No date: Diarrhea 08/10/2020: Fibromyalgia No date: GERD (gastroesophageal reflux disease) No date: GI bleed 07/01/2011: Heart palpitations No date: HTN (hypertension) 08/13/2010: Hyperlipidemia LDL goal < 100 02/17/2012: Lumbar degenerative disc disease 02/20/2017: Lumbar radiculopathy Comment: RLE No date: Nausea alone 01/01/2016: Obstructive sleep apnea treated with BiPAP Comment: 01/01/16: pressure 5-15 No date: Other postablative hypothyroidism 08/08/2010: Pulmonary embolism ([facility]) 01/17/2014: SI joint arthritis No date: Thyrotoxicosis without mention of goiter or other cause, without mention of thyrotoxic crisis or storm 02/02/2012: Type II or unspecified type diabetes mellitus without mention of complication, not stated as uncontrolled PAST SURGICAL HISTORY 12/15/2012: ARTHRS KNE SURG W/MENISCECTOMY MED/LAT W/SHVG Comment: Arthroscopy, knee left No date: CIRCUMCISION W/CLAMP/OTH DEV W/BLOCK Comment: Circumcision, 03/27/2016: COLONOSCOPY; N/A Comment: SCOTT 04/20/2009: COLONOSCOPY FLX DX W/COLLJ SPEC WHEN PFRMD Comment: Colonoscopy 03/27/2016: EGD; N/A Comment: SCOTT 08/16/10: EGD TRANSORAL BIOPSY SINGLE/MULTIPLE No date: HEMORRHOIDECTOMY INTERNAL RUBBER BAND LIGATIONS Comment: Hemorrhoidectomy No date: PAST SURGICAL HISTORY OF Comment: vasectomy reversal No date: PAST SURGICAL HISTORY OF Comment: L testicle- vericocele No date: PAST SURGICAL HISTORY OF Comment: R arm- radial nerve 06/2007: PAST SURGICAL HISTORY OF Comment: heart cath at [facility] No date: VASECTOMY UNI/BI SPX W/POSTOP SEMEN EXAMS ALLERGIES Amitriptyline, Coumadin [Warfarin Sodium], Neurontin [Gabapentin], Seasonal Allergies, Strattera [Atomoxetine Hcl], and Tanzeum [Albiglutide] MEDICATIONS glimepiride (AMARYL) 4 mg tablet TAKE 1/2 TABLET DAILY WITH BREAKFAST cyclobenzaprine (FLEXERIL) 10 mg tablet Take 1 tablet by mouth three times a day as needed for muscle spasm or pain. empagliflozin (JARDIANCE) 25 mg tablet Take 1 tablet by mouth once daily. Cholecalciferol, Vitamin D3, 50 mcg (2,000 unit) cap Take 1 capsule by mouth once daily. cetirizine (ZYRTEC) 10 mg tablet Take 1 tablet by mouth once daily. atorvastatin (LIPITOR) 80 mg tablet take 1 tablet by mouth at bedtime for cholesterol hydroCHLOROthiazide 12.5 mg capsule Take 1 capsule by mouth once daily. levothyroxine (SYNTHROID) 150 mcg tablet TAKE 1 TABLET DAILY ON AN EMPTY STOMACH FOR THYROID lisinopril (ZESTRIL) 10 mg tablet Take 1 tablet by mouth once daily. metFORMIN (GLUCOPHAGE) 500 mg tablet Take 1 tablet by mouth two times a day with meals. montelukast (SINGULAIR) 10 mg tablet Take 1 tablet by mouth daily at bedtime. omeprazole (PRILOSEC) 40 mg capsule Take 1 capsule by mouth once daily. ondansetron (ZOFRAN) 4 mg tablet Take 1 tablet by mouth every 8 hours as needed. atorvastatin (LIPITOR) 80 mg tablet Take 1 tablet by mouth daily at bedtime. For cholesterol. cetirizine (ZYRTEC) 10 mg tablet Take 1 tablet by mouth once daily. Cholecalciferol, Vitamin D3, 50 mcg (2,000 unit) cap Take 1 capsule by mouth once daily. cyclobenzaprine (FLEXERIL) 10 mg tablet Take 1 tablet by mouth three times a day as needed for muscle spasm. empagliflozin (JARDIANCE) 25 mg tablet Take 1 tablet by mouth once daily. Take 1 tablet once daily in the morning glimepiride (AMARYL) 4 mg tablet Take 1 tablet by mouth daily with breakfast. hydroCHLOROthiazide 12.5 mg capsule Take 1 capsule by mouth once daily. levothyroxine (SYNTHROID) 150 mcg tablet Take 1 tablet by mouth daily before breakfast. lisinopril (ZESTRIL) 10 mg tablet Take 1 tablet by mouth once daily. metFORMIN (GLUCOPHAGE) 500 mg tablet Take 1 tablet by mouth two times a day. montelukast (SINGULAIR) 10 mg tablet Take 1 tablet by mouth daily at bedtime. omeprazole (PRILOSEC) 40 mg capsule Take 1 capsule by mouth once daily. ondansetron orally disintegrating (ZOFRAN ODT) 4 mg disintegrating tablet Take 1 tablet by mouth every 6 hours as needed for nausea/vomiting. vilazodone (VIIBRYD) 40 mg tablet ketoconazole (NIZORAL) 2 % cream Apply to affected area once daily. blood sugar diagnostic (BLOOD GLUCOSE TEST) test strip Test blood sugar(s) 1 times daily. Dx: Type 2 DM - Controlled E11.9 Insulin: No Lancets lancets Test blood sugar(s) 1 times daily. Dx: Type 2 DM - Controlled E11.9 Insulin: No blood sugar diagnostic (TRUETRACK TEST) test strip Test blood sugar(s) one time daily. Dx: impaired fasting glucose. Insulin: No Lancets lancets Test blood sugar(s) one time daily. Dx: impaired fasting glucose. Insulin: No Syringe with Needle, Disp, 3 mL 23 gauge x 1 1/2 syrg 1 Each every 2 weeks. CPAP Initiate CPAP @ 5-15 cm of water with humidification. Mask (per patient preference) optional chin strap (if indicated) , filters, tubing, humidifier and lifetime supplies. amoxicillin-clavulanate potassium (AUGMENTIN) 875-125 mg per tablet Take 1 tablet by mouth two times a day for 10 days. FAMILY HISTORY Problem Relation Age of Onset Diabetes Mother Diabetes Sister Diabetes Brother Heart Maternal Grandmother Heart Maternal Grandfather Social History Tobacco Use Smoking status: Former Current packs/day: 0.25 Average packs/day: 0.3 packs/day for 2.0 years (0.5 ttl pk-yrs) Types: Cigarettes Smokeless tobacco: Current Types: Chew Tobacco comments: quit smoking late Vaping Use Vaping status: Never Used Substance Use Topics Alcohol use: No Drug use: No Review of Systems Constitutional: Positive for fatigue. Negative for activity change, appetite change and fever. HENT: Positive for dental problem. Negative for ear discharge, ear pain, rhinorrhea, sinus pressure, sinus pain and sore throat. Eyes: Negative for photophobia, pain, redness and visual disturbance. Respiratory: Negative for cough and shortness of breath. Cardiovascular: Negative for chest pain and palpitations. Gastrointestinal: Negative for abdominal pain, diarrhea, nausea and vomiting. Musculoskeletal: Negative for neck pain and neck stiffness. Skin: Negative for rash. Allergic/Immunologic: Positive for environmental allergies. Negative for food allergies. Neurological: Negative for speech difficulty and headaches. Hematological: Negative for adenopathy. Does not bruise/bleed easily. Psychiatric/Behavioral: Negative for agitation and behavioral problems. Objective BP 140/60 Pulse 75 Temp 36.9 C (98.4 F) Resp 18 Wt 82.6 kg (182 lb 1.6 oz) SpO2 98% BMI 29.39 kg/m Physical Exam Constitutional: General: He is not in acute distress. Appearance: Normal appearance. He is not ill-appearing. HENT: Head: Normocephalic and atraumatic. Jaw: No tenderness or swelling. Right Ear: Tympanic membrane and external ear normal. Left Ear: Tympanic membrane and external ear normal. Nose: Nose normal. Mouth/Throat: Mouth: Mucous membranes are moist. Pharynx: Posterior oropharyngeal erythema present. Comments: Wide spread dental decay Multiple fractured teeth and missing dentition Gums inflamed and recessed No trismus Uvula midline Eyes: Conjunctiva/sclera: Conjunctivae normal. Pupils: Pupils are equal, round, and reactive to light. Cardiovascular: Rate and Rhythm: Normal rate and regular rhythm. Pulses: Normal pulses. Heart sounds: Normal heart sounds. Pulmonary: Effort: Pulmonary effort is normal. No respiratory distress. Breath sounds: Normal breath sounds. No wheezing. Abdominal: General: Abdomen is flat. There is no distension. Palpations: Abdomen is soft. There is no mass. Tenderness: There is no abdominal tenderness. Hernia: No hernia is present. Musculoskeletal: General: No swelling, tenderness, deformity or signs of injury. Normal range of motion. Cervical back: Normal range of motion and neck supple. Skin: General: Skin is warm. Capillary Refill: Capillary refill takes less than 2 seconds. Coloration: Skin is not jaundiced. Findings: No bruising. Neurological: General: No focal deficit present. Mental Status: He is alert. Psychiatric: Mood and Affect: Mood normal. Behavior: Behavior normal. Assessment and Plan ASSESSMENT/PLAN: 1. Dental pain Ongoing and chronic States [facility] -Augmentin prescribed for 10 days -Supportive care provided -Educated on importance of dental follow-up Discussed red flags Angie Bunch Student TEACHING PROVIDER (Physician/PA/WIRE FRAME LAMPSHADE MAKER) NOTE OF PERSONAL INVOLVEMENT IN CARE: I have personally seen and examined the patient and performed the medical decision-making components. I have reviewed the Advanced Practice Registered Nurse (WIRE FRAME LAMPSHADE MAKER) Student's documentation and verified the findings in the note as written. Any additions or changes are noted in bold/italics. Signature: Carla Chong Date: 12/17/2023 Time: 5:15 PM documented in this encounter [facility] 11-18-2023 History of Presen t illness Narrative Chief Complaint Patient presents with: F/U 6 Month HPI Jairo Coburn is a 63 year old male who presents here today for 6 month follow up. [facility] and [facility]. [facility] not get [facility]. Reports he's been out of some of his meds for the past week. GI/Uro - Hx of gastroparesis. Has chronic nausea, takes Zofran 4 mg 1 tab po every 8 hrs prn. No bowel issues. Denies any urinary issues. GERD - Taking Prilosec 40 mg once daily, stable with regimen. HTN: Taking Lisinopril 10 mg daily an HCTZ 12.5 mg daily. Checks BP occasionally at home, generally 130-140/70-80's. Denies chest pains or sob. Occasional dizziness but this is related to his injury. Lipid: Tries to watch diet some. Stays active at work, but no regimen of exercise. Taking Lipitor 80 mg daily. Thyroid - Taking Synthroid 150 mcg once daily. Denies missed dosages. DM: Is taking Amaryl 4 mg half pill daily, Jardiance 25 mg daily, and metformin 500 mg 1 pill BID. Denies checking BS at home. Denies any hypoglycemic episodes. He has neuropathy in feet but not on any medication Pain: Follows with [facility] for this as he has disability for the neck. Chronic neck pain x 20+ years that causes him severe headaches and numbness to both arms from elbow to fingers. Uses Flexeril as needed. Will be seeing a Surgeon through the [facility]. Depression/DONTE: No longer on Paxil. [facility] has changed his regimen to Viibryd 40 mg and medical marijuana. Hypogonadism: Has not been on medication to treat this for 5 years, monitored with labs. FATIMAH: Uses CPAP nightly. Past medical history, appointments, medications, allergies reviewed. Previous Medical History PAST MEDICAL HISTORY No date: Abdominal pain, right upper quadrant No date: Allergic rhinitis due to other allergen 06/29/2018: Bipolar I disorder ([facility]) 11/08/2010: Cervical muscle strain 06/23/2012: Degenerative arthritis of cervical spine No date: Diarrhea 08/10/2020: Fibromyalgia No date: GERD (gastroesophageal reflux disease) No date: GI bleed 07/01/2011: Heart palpitations No date: HTN (hypertension) 08/13/2010: Hyperlipidemia LDL goal < 100 02/17/2012: Lumbar degenerative disc disease 02/20/2017: Lumbar radiculopathy Comment: RLE No date: Nausea alone 01/01/2016: Obstructive sleep apnea treated with BiPAP Comment: 01/01/16: pressure 5-15 No date: Other postablative hypothyroidism 08/08/2010: Pulmonary embolism ([facility]) 01/17/2014: SI joint arthritis No date: Thyrotoxicosis without mention of goiter or other cause, without mention of thyrotoxic crisis or storm 02/02/2012: Type II or unspecified type diabetes mellitus without mention of complication, not stated as uncontrolled Previous Surgical History PAST SURGICAL HISTORY 12/15/2012: ARTHRS KNE SURG W/MENISCECTOMY MED/LAT W/SHVG Comment: Arthroscopy, knee left No date: CIRCUMCISION W/CLAMP/OTH DEV W/BLOCK Comment: Circumcision, 03/27/2016: COLONOSCOPY; N/A Comment: MAC 04/20/2009: COLONOSCOPY FLX DX W/COLLJ SPEC WHEN PFRMD Comment: Colonoscopy 03/27/2016: EGD; N/A Comment: MAC 08/16/10: EGD TRANSORAL BIOPSY SINGLE/MULTIPLE No date: HEMORRHOIDECTOMY INTERNAL RUBBER BAND LIGATIONS Comment: Hemorrhoidectomy No date: PAST SURGICAL HISTORY OF Comment: vasectomy reversal No date: PAST SURGICAL HISTORY OF Comment: L testicle- vericocele No date: PAST SURGICAL HISTORY OF Comment: R arm- radial nerve 06/2007: PAST SURGICAL HISTORY OF Comment: heart cath at [facility] No date: VASECTOMY UNI/BI SPX W/POSTOP SEMEN EXAMS Family History FAMILY HISTORY Problem Relation Age of Onset Diabetes Mother Diabetes Sister Diabetes Brother Heart Maternal Grandmother Heart Maternal Grandfather Patient Allergies ALLERGIES Allergen Reactions Amitriptyline Mental Status Change increased anger Coumadin [Warfarin * Rash Neurontin [Gabapent* Mental Status Change Seasonal Allergies Other: See Comments Cockroaches, dust mites, trees, grasses, weeds, ragweed Strattera [Atomoxet* Other: See Comments testicular pain Tanzeum [Albiglutid* GI Upset nausea Current Medications Current Outpatient Medications on File Prior to Visit Medication Sig vilazodone (VIIBRYD) 40 mg tablet ketoconazole (NIZORAL) 2 % cream Apply to affected area once daily. PARoxetine (PAXIL) 40 mg tablet Take 1 tablet by mouth once daily. (Patient not taking: Reported on 09/16/2023) atorvastatin (LIPITOR) 80 mg tablet take 1 tablet by mouth at bedtime for cholesterol cyclobenzaprine (FLEXERIL) 10 mg tablet Take 1 tablet by mouth three times daily as needed for muscle spasm or pain. metFORMIN (GLUCOPHAGE) 500 mg tablet Take 1 tablet by mouth twice daily with meals. empagliflozin (JARDIANCE) 25 mg tablet Take 1 tablet by mouth once daily. lisinopril (ZESTRIL) 10 mg tablet Take 1 tablet by mouth once daily. montelukast (SINGULAIR) 10 mg tablet Take 1 tablet by mouth daily at bedtime. omeprazole (PRILOSEC) 40 mg capsule Take 1 capsule by mouth once daily. blood sugar diagnostic (BLOOD GLUCOSE TEST) test strip Test blood sugar(s) 1 times daily. Dx: Type 2 DM - Controlled E11.9 Insulin: No Lancets lancets Test blood sugar(s) 1 times daily. Dx: Type 2 DM - Controlled E11.9 Insulin: No ondansetron (ZOFRAN) 4 mg tablet Take 1 tablet by mouth every 8 hours as needed. Cholecalciferol, Vitamin D3, 50 mcg (2,000 unit) cap Take 1 capsule by mouth once daily. hydroCHLOROthiazide 12.5 mg capsule Take 1 capsule by mouth once daily. cetirizine (ZYRTEC) 10 mg tablet Take 1 tablet by mouth once daily. levothyroxine (SYNTHROID) 150 mcg tablet TAKE 1 TABLET DAILY ON AN EMPTY STOMACH FOR THYROID PARoxetine (PAXIL) 40 mg tablet Take 1 tablet by mouth once daily. glimepiride (AMARYL) 4 mg tablet TAKE 1/2 TABLET DAILY WITH BREAKFAST blood sugar diagnostic (TRUETRACK TEST) test strip Test blood sugar(s) one time daily. Dx: impaired fasting glucose. Insulin: No Lancets lancets Test blood sugar(s) one time daily. Dx: impaired fasting glucose. Insulin: No testosterone enanthate (XYOSTED) 75 mg/0.5 mL AutoInjector Inject 75 mg subcutaneously one time a week for 90 days. Syringe with Needle, Disp, 3 mL 23 gauge x 1 1/2 syrg 1 Each every 2 weeks. CPAP Initiate CPAP @ 5-15 cm of water with humidification. Mask (per patient preference) optional chin strap (if indicated) , filters, tubing, humidifier and lifetime supplies. aspirin(ECOTRIN LOW STRENGTH 81 MG TAB) Take one(1) tablet daily. No current facility-administered medications on file prior to visit. Social History Social History Tobacco Use Smoking status: Former Packs/day: 0.25 Years: 2.00 Additional pack years: 0.00 Total pack years: 0.50 Types: Cigarettes Smokeless tobacco: Current Types: Chew Tobacco comments: quit smoking late Vaping Use Vaping Use: Never used Substance Use Topics Alcohol use: No Drug use: No EXAM: BP 126/74 (BP Site: Left Arm, BP Position: Sitting, BP Cuff Size: Regular Adult) Pulse 78 Resp 18 Wt 83.2 kg (183 lb 6.8 oz) BMI 29.61 kg/m General Appearance: Well appearing, alert, in no acute distress, well-hydrated, well nourished.. Lungs: Lungs clear to auscultation. No wheezing, rhonchi, rales.. Heart: RRR without murmur, gallop, or rubs. No ectopy. Health Maintenance List Dilated Retinal Exam due on 01/26/2019 Colorectal Cancer Screening due on 03/27/2021 BP Controlled (<130/80) due on 06/22/2021 Diabetic Foot Exam due on 06/26/2021 HbA1C due on 04/01/2023 Urine Albumin:Creatinine Ratio due on 10/01/2023 LDL Cholesterol due on 10/01/2023 Prostate Cancer Screening Discussion due on 10/29/2023 Shingrix Vaccine(2 of 2) due on 11/13/2023 Covid-19 Vaccine( season) due on 05/13/2024 Annual PCP Team Chronic Disease Visit due on 05/13/2024 DTaP,Tdap,Td Vaccine(3 - Td or Tdap) due on 09/17/2028 RSV Vaccine Completed Hepatitis C Screening Completed Pneumococcal Vaccine Completed Influenza Vaccine Discontinued HIV Screening Discontinued Data reviewed Labs ordered ASSESSMENT/PLAN: 1. Type 2 diabetes mellitus without complication, without long-term current use of insulin (HCC) - ICD9: 250.00, ICD10: E11.9 (primary diagnosis) - Control undetermined, due for labs - Continue current medications - GLIMEPIRIDE 4 MG TABLET - COMPREHENSIVE METABOLIC PANEL - LIPID PANEL BASIC - ALBUMIN/CREATININE RATIO, URINE - HEMOGLOBIN A1C 2. Essential hypertension, benign - ICD9: 401.1, ICD10: I10 - Controlled - Continue current medications - Recommend home blood pressure monitoring, to bring results to next visit - Encouraged sodium restriction, DASH or Mediterranean diet - Recommend regular aerobic exercise - LISINOPRIL 10 MG TABLET - COMPLETE BLOOD COUNT - LIPID PANEL BASIC 3. Hyperlipidemia with target LDL less than 100 - ICD9: 272.4, ICD10: E78.5 - Control undetermined, due for labs - Continue current medications - Counseled on healthy diet and regular exercise - COMPREHENSIVE METABOLIC PANEL - LIPID PANEL BASIC 4. Hypothyroidism, unspecified type - ICD9: 244.9, ICD10: E03.9 - Instructed patient on importance of taking on an empty stomach either first thing in the morning or at bedtime. - check TSH - THYROID STIMULATING HORMONE 5. Hypogonadism in male - ICD9: 257.2, ICD10: E29.1 6. Adjustment disorder with depressed mood - ICD9: 309.0, ICD10: F43.21 [facility] 7. Osteoarthritis of cervical spine, unspecified spinal osteoarthritis complication status - ICD9: 721.0, ICD10: M47.812 8. FATIMAH (obstructive sleep apnea) - ICD9: 327.23, ICD10: G47.33 9. GERD without esophagitis - ICD9: 530.81, ICD10: K21.9 - OMEPRAZOLE 40 MG CAPSULE,DELAYED RELEASE 10. Acute left-sided low back pain with left-sided sciatica - ICD9: 724.2, 724.3, ICD10: M54.42 - CYCLOBENZAPRINE 10 MG TABLET 11. Gastroparesis - ICD9: 536.3, ICD10: K31.84 - OMEPRAZOLE 40 MG CAPSULE,DELAYED RELEASE 12. Chronic nausea - ICD9: 787.02, ICD10: R11.0 - ONDANSETRON HCL 4 MG TABLET Notify of lab results Follow up in 6 months Medical Decision Making: Problems: Moderate: 2+ stable chronic illnesses Data: Unique test(s) ordered: 3+ Risk: Moderate: Drug management Medical Decision Making Level: 4 - Moderate Cindi Nunez MD documented in this encounter [facility] 09-16-2023 History of Presen t illness Narrative Images from the original note were not included. This note was created using [employer]. Subjective Jairo Coburn is a 63 year old male. HPI 63-year-old male with PMH of DM type II presents for rash to bilateral lower legs. Patient states rash has been present for about 2 weeks. He states that he was in tall grass a few weeks ago pulling weeds and he noticed the rash the next day. He thought it might be chigger bites or poison ivonne. He states that some of the areas started as small pimple looking bumps and now are more red. He states they are very itchy. He has been putting some [id number] ointment on them, which has helped. However, he still has a red rash. He was concerned some the areas may be infected. States that sugars have been good at home. No fevers. Nobody else at home has similar rash. No other complaint. PAST MEDICAL HISTORY Diagnosis Date Abdominal pain, right upper quadrant Allergic rhinitis due to other allergen Bipolar I disorder (HCC) 06/29/2018 Cervical muscle strain 11/08/2010 Degenerative arthritis of cervical spine 06/23/2012 Diarrhea Fibromyalgia 08/10/2020 GERD (gastroesophageal reflux disease) GI bleed Heart palpitations 07/01/2011 HTN (hypertension) Hyperlipidemia LDL goal < 100 08/13/2010 Lumbar degenerative disc disease 02/17/2012 Lumbar radiculopathy 02/20/2017 RLE Nausea alone Obstructive sleep apnea treated with BiPAP 01/01/2016 01/01/16: pressure 5-15 Other postablative hypothyroidism Pulmonary embolism ([facility]) 08/08/2010 SI joint arthritis 01/17/2014 Thyrotoxicosis without mention of goiter or other cause, without mention of thyrotoxic crisis or storm Type II or unspecified type diabetes mellitus without mention of complication, not stated as uncontrolled 02/02/2012 PAST SURGICAL HISTORY Procedure Laterality Date ARTHRS KNE SURG W/MENISCECTOMY MED/LAT W/SHVG 12/15/2012 Arthroscopy, knee left CIRCUMCISION W/CLAMP/OTH DEV W/BLOCK Circumcision, COLONOSCOPY N/A 03/27/2016 MAC COLONOSCOPY FLX DX W/COLLJ SPEC WHEN PFRMD 04/20/2009 Colonoscopy EGD N/A 03/27/2016 MAC EGD TRANSORAL BIOPSY SINGLE/MULTIPLE 08/16/10 HEMORRHOIDECTOMY INTERNAL RUBBER BAND LIGATIONS Hemorrhoidectomy PAST SURGICAL HISTORY OF vasectomy reversal PAST SURGICAL HISTORY OF L testicle- vericocele PAST SURGICAL HISTORY OF R arm- radial nerve PAST SURGICAL HISTORY OF 06/2007 heart cath at [facility] VASECTOMY UNI/BI SPX W/POSTOP SEMEN EXAMS ALLERGIES Amitriptyline, Coumadin [Warfarin Sodium], Neurontin [Gabapentin], Seasonal Allergies, Strattera [Atomoxetine Hcl], and Tanzeum [Albiglutide] MEDICATIONS vilazodone (VIIBRYD) 40 mg tablet ketoconazole (NIZORAL) 2 % cream Apply to affected area once daily. atorvastatin (LIPITOR) 80 mg tablet take 1 tablet by mouth at bedtime for cholesterol cyclobenzaprine (FLEXERIL) 10 mg tablet Take 1 tablet by mouth three times daily as needed for muscle spasm or pain. metFORMIN (GLUCOPHAGE) 500 mg tablet Take 1 tablet by mouth twice daily with meals. empagliflozin (JARDIANCE) 25 mg tablet Take 1 tablet by mouth once daily. lisinopril (ZESTRIL) 10 mg tablet Take 1 tablet by mouth once daily. montelukast (SINGULAIR) 10 mg tablet Take 1 tablet by mouth daily at bedtime. blood sugar diagnostic (BLOOD GLUCOSE TEST) test strip Test blood sugar(s) 1 times daily. Dx: Type 2 DM - Controlled E11.9 Insulin: No Lancets lancets Test blood sugar(s) 1 times daily. Dx: Type 2 DM - Controlled E11.9 Insulin: No ondansetron (ZOFRAN) 4 mg tablet Take 1 tablet by mouth every 8 hours as needed. Cholecalciferol, Vitamin D3, 50 mcg (2,000 unit) cap Take 1 capsule by mouth once daily. hydroCHLOROthiazide 12.5 mg capsule Take 1 capsule by mouth once daily. cetirizine (ZYRTEC) 10 mg tablet Take 1 tablet by mouth once daily. levothyroxine (SYNTHROID) 150 mcg tablet TAKE 1 TABLET DAILY ON AN EMPTY STOMACH FOR THYROID PARoxetine (PAXIL) 40 mg tablet Take 1 tablet by mouth once daily. glimepiride (AMARYL) 4 mg tablet TAKE 1/2 TABLET DAILY WITH BREAKFAST blood sugar diagnostic (TRUETRACK TEST) test strip Test blood sugar(s) one time daily. Dx: impaired fasting glucose. Insulin: No Lancets lancets Test blood sugar(s) one time daily. Dx: impaired fasting glucose. Insulin: No Syringe with Needle, Disp, 3 mL 23 gauge x 1 1/2 syrg 1 Each every 2 weeks. CPAP Initiate CPAP @ 5-15 cm of water with humidification. Mask (per patient preference) optional chin strap (if indicated) , filters, tubing, humidifier and lifetime supplies. aspirin(ECOTRIN LOW STRENGTH 81 MG TAB) Take one(1) tablet daily. cephALEXin (KEFLEX) 500 mg capsule Take 1 capsule by mouth four times daily for 5 days. triamcinolone acetonide (KENALOG) 0.1 % cream Apply 1 application to affected area two times a day for 7 days. Apply to affected area. Use sparingly. methylPREDNISolone (MEDROL, BERENICE,) 4 mg Dose-Pack Follow dosing instructions, take with food. PARoxetine (PAXIL) 40 mg tablet Take 1 tablet by mouth once daily. (Patient not taking: Reported on 09/16/2023) omeprazole (PRILOSEC) 40 mg capsule Take 1 capsule by mouth once daily. testosterone enanthate (XYOSTED) 75 mg/0.5 mL AutoInjector Inject 75 mg subcutaneously one time a week for 90 days. FAMILY HISTORY Problem Relation Age of Onset Diabetes Mother Diabetes Sister Diabetes Brother Heart Maternal Grandmother Heart Maternal Grandfather Social History Tobacco Use Smoking status: Former Packs/day: 0.25 Years: 2.00 Additional pack years: 0.00 Total pack years: 0.50 Types: Cigarettes Smokeless tobacco: Current Types: Chew Tobacco comments: quit smoking late Vaping Use Vaping Use: Never used Substance Use Topics Alcohol use: No Drug use: No Review of Systems Constitutional: Negative for chills and fever. HENT: Negative for congestion and sore throat. Respiratory: Negative for cough and shortness of breath. Gastrointestinal: Negative for diarrhea and vomiting. Skin: Positive for rash. Objective BP 132/80 Pulse 78 Temp 36.8 C (98.2 F) (Tympanic) Resp 16 Wt 81.5 kg (179 lb 10.8 oz) SpO2 95% BMI 29.00 kg/m Physical Exam Vitals and nursing note reviewed. Constitutional: General: He is not in acute distress. Appearance: Normal appearance. He is not toxic-appearing. HENT: Nose: Nose normal. Mouth/Throat: Mouth: Mucous membranes are moist. Eyes: Conjunctiva/sclera: Conjunctivae normal. Cardiovascular: Rate and Rhythm: Normal rate and regular rhythm. Pulmonary: Effort: Pulmonary effort is normal. Breath sounds: Normal breath sounds. Skin: General: Skin is warm and dry. Findings: Rash present. Comments: Patient has multiple erythematous raised bumps on the lower legs. Some are linear in nature. No fluctuance or abscess. A few of the lesions on the lower legs are warm to touch. No lymphatic streaking. Neurological: Mental Status: He is alert. Assessment and Plan ASSESSMENT/PLAN: 1. Allergic dermatitis - ICD9: 692.9, ICD10: L23.9 -Suspect contact dermatitis versus insect bites. -Patient does have some warmth of some of the areas with some spreading erythema, will cover for secondary bacterial infection with Keflex. Patient is a diabetic. - Topical steriod tx with Rx for steriod cream/ointment- see orders -Recommend using topical steroid and antibiotic. If symptoms do not improve, may start Medrol Dosepak. Patient is a diabetic, but states sugars have been good. Did advise to monitor sugars if he starts the Medrol Dosepak. He understands. - Anti itch therapy of Calomine lotion and Oral Benydryl recommended prn - discussed skin care of rash - follow up if symptoms persist or worsen. Diagnosis and treatment plan were discussed and questions were answered to the patient's satisfaction. Pt acknowledged understanding of concepts and follow up plan. Specific signs and symptoms that would indicate the need for higher level of care were discussed in detail warranting prompt ER evaluation. RENA Aquino documented in this encounter [facility] 01-08-2023 History of Presen t illness Narrative Radiology Service Progress Note PATIENT NAME: Jairo Coburn DATE OF SERVICE: January 08, 2023 TIME: 12:11 PM PATIENT IDENTITY VERIFICATION COMPLETED USING TWO (2) IDENTIFIERS: Name and Date of confirmed by patient verbally. FALL SCREENING: Has the patient had 2 falls in the last year or 1 fall with injury or currently using an Ambulatory Assistive Device (Walker, Cane, Wheelchair, Crutches, etc.)? No PATIENT GENDER DATA: Male PATIENT RELEVANT IMPLANT DATA REVIEWED: Not Applicable RADIOLOGY DEPARTMENT: General X-ray: Exam(s) Completed: Lower Extremity X-Ray(s): Foot, Left PERIPHERAL IV DATA: Not applicable SIGNED BY: RT Dmitriy(R) January 08, 2023 12:11 PM documented in this encounter [facility] 10-10-2022 History of Presen t illness Narrative HISTORY AND PHYSICAL Jairo Coburn 1960 REFERRING PHYSICIAN: Cindi Nunez MD CHIEF COMPLAINT: Consult (SCREENING FOR COLON CANCER) HPI: The patient is a 62 year old male referred for endoscopy. Patient denies any change in bowel habits, weight changes, blood in stools, black tarry stools. He does note intermittent left lower abdominal discomfort x years. Notes this discomfort is generally relieved following a bowel movement. Denies family history of colon issues. The patient notes no upper GI complaints. Jairo has undergone prior endoscopy. Last EGD and colonoscopy 03/27/[address] Machado under Monitored [facility]esthetic [facility]. EGD was unremarkable. Colonoscopy showed diverticulosis, as well as three small polyps which were removed. These returned as hyperplastic tissue. Patient was advised by GI physician to have repeat colonoscopy in 5 years. PAST MEDICAL HISTORY Diagnosis Date Abdominal pain, right upper quadrant Allergic rhinitis due to other allergen Bipolar I disorder (HCC) 06/29/2018 Cervical muscle strain 11/08/2010 Degenerative arthritis of cervical spine 06/23/2012 Diarrhea Fibromyalgia 08/10/2020 GERD (gastroesophageal reflux disease) GI bleed Heart palpitations 07/01/2011 HTN (hypertension) Hyperlipidemia LDL goal < 100 08/13/2010 Lumbar degenerative disc disease 02/17/2012 Lumbar radiculopathy 02/20/2017 RLE Nausea alone Obstructive sleep apnea treated with BiPAP 01/01/2016 01/01/16: pressure 5-15 Other postablative hypothyroidism Pulmonary embolism (HCC) 08/08/2010 SI joint arthritis 01/17/2014 Thyrotoxicosis without mention of goiter or other cause, without mention of thyrotoxic crisis or storm Type II or unspecified type diabetes mellitus without mention of complication, not stated as uncontrolled 02/02/2012 PAST SURGICAL HISTORY Procedure Laterality Date ARTHRS KNE SURG W/MENISCECTOMY MED/LAT W/SHVG 12/15/2012 Arthroscopy, knee left CIRCUMCISION W/CLAMP/OTH DEV W/BLOCK Circumcision, COLONOSCOPY N/A 03/27/2016 MAC COLONOSCOPY FLX DX W/COLLJ SPEC WHEN PFRMD 04/20/2009 Colonoscopy EGD N/A 03/27/2016 MAC EGD TRANSORAL BIOPSY SINGLE/MULTIPLE 08/16/10 HEMORRHOIDECTOMY INTERNAL RUBBER BAND LIGATIONS Hemorrhoidectomy PAST SURGICAL HISTORY OF vasectomy reversal PAST SURGICAL HISTORY OF L testicle- vericocele PAST SURGICAL HISTORY OF R arm- radial nerve PAST SURGICAL HISTORY OF 06/2007 heart cath at [facility] VASECTOMY UNI/BI SPX W/POSTOP SEMEN EXAMS Current Outpatient Medications Medication Sig PARoxetine (PAXIL) 40 mg tablet Take 1 tablet by mouth once daily. atorvastatin (LIPITOR) 80 mg tablet take 1 tablet by mouth at bedtime for cholesterol cyclobenzaprine (FLEXERIL) 10 mg tablet Take 1 tablet by mouth three times daily as needed for muscle spasm or pain. metFORMIN (GLUCOPHAGE) 500 mg tablet Take 1 tablet by mouth twice daily with meals. empagliflozin (JARDIANCE) 25 mg tablet Take 1 tablet by mouth once daily. lisinopril (ZESTRIL) 10 mg tablet Take 1 tablet by mouth once daily. montelukast (SINGULAIR) 10 mg tablet Take 1 tablet by mouth daily at bedtime. omeprazole (PRILOSEC) 40 mg capsule Take 1 capsule by mouth once daily. blood sugar diagnostic (BLOOD GLUCOSE TEST) test strip Test blood sugar(s) 1 times daily. Dx: Type 2 DM - Controlled E11.9 Insulin: No Lancets lancets Test blood sugar(s) 1 times daily. Dx: Type 2 DM - Controlled E11.9 Insulin: No ondansetron (ZOFRAN) 4 mg tablet Take 1 tablet by mouth every 8 hours as needed. Cholecalciferol, Vitamin D3, 50 mcg (2,000 unit) cap Take 1 capsule by mouth once daily. hydroCHLOROthiazide 12.5 mg capsule Take 1 capsule by mouth once daily. cetirizine (ZYRTEC) 10 mg tablet Take 1 tablet by mouth once daily. levothyroxine (SYNTHROID) 150 mcg tablet TAKE 1 TABLET DAILY ON AN EMPTY STOMACH FOR THYROID PARoxetine (PAXIL) 40 mg tablet Take 1 tablet by mouth once daily. glimepiride (AMARYL) 4 mg tablet TAKE 1/2 TABLET DAILY WITH BREAKFAST blood sugar diagnostic (TRUETRACK TEST) test strip Test blood sugar(s) one time daily. Dx: impaired fasting glucose. Insulin: No Lancets lancets Test blood sugar(s) one time daily. Dx: impaired fasting glucose. Insulin: No testosterone enanthate (XYOSTED) 75 mg/0.5 mL AutoInjector Inject 75 mg subcutaneously one time a week for 90 days. Syringe with Needle, Disp, 3 mL 23 gauge x 1 1/2 syrg 1 Each every 2 weeks. CPAP Initiate CPAP @ 5-15 cm of water with humidification. Mask (per patient preference) optional chin strap (if indicated) , filters, tubing, humidifier and lifetime supplies. aspirin(ECOTRIN LOW STRENGTH 81 MG TAB) Take one(1) tablet daily. No current facility-administered medications for this visit. ALLERGIES: Amitriptyline, Coumadin [Warfarin Sodium], Environmental [Other], Neurontin [Gabapentin], Strattera [Atomoxetine Hcl], and Tanzeum [Albiglutide] PERSONAL HISTORY: Social History Tobacco Use Smoking status: Former Packs/day: 0.25 Years: 2.00 Pack years: 0.50 Types: Cigarettes Smokeless tobacco: Current Types: Chew Tobacco comments: quit smoking late Vaping Use Vaping Use: Never used Substance Use Topics Alcohol use: No Drug use: No FAMILY HISTORY: FAMILY HISTORY Problem Relation Age of Onset Diabetes Mother Diabetes Sister Diabetes Brother Heart Maternal Grandmother Heart Maternal Grandfather REVIEW OF SYMPTOMS: The review of systems data was entered by the nurse and reviewed by me Nursing Notes: Torrie Clark LPN 10/10/2022 3:20 PM Signed REVIEW OF SYSTEMS: General: The patient denies fatigue, denies weight loss, denies weight gain, denies feeling hot, and denies feelings of cold. Eyes: The patient denies glaucoma, denies eye injury/surgery, wears glasses or contacts. Ear/Nose/Throat: The patient NOTES allergies, denies hayfever, denies ear infections, and denies bloody noses. Cardiovascular: The patient NOTES chest pain, denies heart disease, NOTES high blood pressure,denies cardiac stent, denies prior heart attack, NOTES irregular heart beat, NOTES high cholesterol, denies poor circulation, denies heart failure, other cardiac issues, denies claudication, denies cold feet, denies peripheral arterial stent. Respiratory: The patient denies tuberculosis, denies pneumonia, denies frequent cough, NOTES pulmonary embolism, denies shortness of breath, and denies coughing up blood. Gastrointestinal: The patient denies difficulty swallowing, NOTES acid reflux, denies ulcers, denies vomiting, denies jaundice/hepatitis, denies gallbladder problems, denies black or tarry stools, denies hemorrhoids, denies bleeding from rectum, denies diverticulitis, denies constipation, NOTES diarrhea, denies loss of stool control, and denies hernias. Kidney/Bladder: The patient denies kidney stones, denies urine infections, and denies bloody urine. Skin: The patient denies a history of skin cancer, denies bleeding/changing moles, and denies a history of skin rash. Neurologic: The patient denies a history of epilepsy/convulsions, denies headaches, denies head/spinal injuries, and denies stroke/TIA. Psychiatric: The patient denies psychiatric medications, denies depression, and denies voices, denies substance abuse. Endocrine: The patient denies thyroid disorders, NOTES diabetes, and denies hormonal problems. Hematologic: The patient denies a history of bruising, denies bleeding, and denies anemia, denies blood clots. Infections: The patient denies a history of measles and mumps, denies rheumatic fever, and denies sexually transmitted diseases. Musculoskeletal: The patient denies back pain/injury, NOTES back problems, denies sciatica, NOTES knee/foot trouble, NOTES arthritis, or denies gout. When was patient's last Mammogram screening? N/A Last Colonoscopy: 2015 I have confirmed and edited as necessary, the PFSH and ROS obtained by others. Reyna Mariee PA-C PHYSICAL EXAMINATION: General: The patient is 62 year old male, well nourished, well hydrated in no acute distress. The patient is oriented to time, place, and person. VITALS: Blood pressure 140/88, pulse 72, temperature 36.1 C (96.9 F), height 167.6 cm (5' 6), weight 85.7 kg (189 lb), SpO2 97 %. Body mass index is 30.51 kg/m . HEENT: Normal cephalic, ataumatic, pupils are equally round, sclera are anicteric, mucous membranes are moist, oropharynx is clear. Neck has no masses, asymmetry or lymphadenopathy. Respiratory: Clear to auscultation and percussion. Normal respiratory excursion and pattern. Cardiac: Examination is regular rate and rhythm. Normal S1/S2 Abdominal exam: Soft, nontender, with no palpable masses. No hepatosplenomegaly. No palpable hernias. Extremities: no clubbing, cyanosis or edema. No adenopathy. LABORATORY VALUES: As Noted RADIOLOGIC STUDIES: As Noted Assessment IMPRESSION: history of benign colon polyps, diverticulosis PLAN: I have reviewed my findings with the surgeon. Will plan for lower endoscopy. We discussed the risks and benefits of the planned endoscopy. I have informed the patient that complications can occur including failure to complete the endoscopy and perforation. The patient had the opportunity to ask questions concerning the planned endoscopy. My staff has also explained the procedure to the patient in understandable terms and has given the patient printed material concerning the procedure. The patient freely consents to surgery. I plan to use Miralax bowel preparation Patient instructed to contact PCP for instructions regarding diabetic medication, which may require adjustment during bowel preparation and/or day of procedure We will plan for Monitored Anesthetic Care. If this colonoscopy is negative, would extend interval for next colonoscopy to 10 years per current colorectal cancer screening guidelines Diagnoses: (K57.90) Diverticulosis (primary encounter diagnosis) (Z12.11) Screening for colon cancer (Z86.010) History of colonic polyps Consultation requested by Dr. Nunez for an opinion regarding history of colon polyps and need for surveillance colonoscopy. My final recommendations will be communicated back to the requesting physician by way of shared Medical record or letter to requesting physician via US mail. Reyna Mariee PA-C documented in this encounter [facility] 10-10-2022 Nurse Note REVIEW OF SYSTEMS: General: The patient denies fatigue, denies weight loss, denies weight gain, denies feeling hot, and denies feelings of cold. Eyes: The patient denies glaucoma, denies eye injury/surgery, wears glasses or contacts. Ear/Nose/Throat: The patient NOTES allergies, denies hayfever, denies ear infections, and denies bloody noses. Cardiovascular: The patient NOTES chest pain, denies heart disease, NOTES high blood pressure,denies cardiac stent, denies prior heart attack, NOTES irregular heart beat, NOTES high cholesterol, denies poor circulation, denies heart failure, other cardiac issues, denies claudication, denies cold feet, denies peripheral arterial stent. Respiratory: The patient denies tuberculosis, denies pneumonia, denies frequent cough, NOTES pulmonary embolism, denies shortness of breath, and denies coughing up blood. Gastrointestinal: The patient denies difficulty swallowing, NOTES acid reflux, denies ulcers, denies vomiting, denies jaundice/hepatitis, denies gallbladder problems, denies black or tarry stools, denies hemorrhoids, denies bleeding from rectum, denies diverticulitis, denies constipation, NOTES diarrhea, denies loss of stool control, and denies hernias. Kidney/Bladder: The patient denies kidney stones, denies urine infections, and denies bloody urine. Skin: The patient denies a history of skin cancer, denies bleeding/changing moles, and denies a history of skin rash. Neurologic: The patient denies a history of epilepsy/convulsions, denies headaches, denies head/spinal injuries, and denies stroke/TIA. Psychiatric: The patient denies psychiatric medications, denies depression, and denies voices, denies substance abuse. Endocrine: The patient denies thyroid disorders, NOTES diabetes, and denies hormonal problems. Hematologic: The patient denies a history of bruising, denies bleeding, and denies anemia, denies blood clots. Infections: The patient denies a history of measles and mumps, denies rheumatic fever, and denies sexually transmitted diseases. Musculoskeletal: The patient denies back pain/injury, NOTES back problems, denies sciatica, NOTES knee/foot trouble, NOTES arthritis, or denies gout. When was patient's last Mammogram screening? N/A Last Colonoscopy: 2015 documented in this encounter [facility] 10-08-2022 Miscellaneous Notes Pt notified and voiced understanding. Zulema Presley Ma Message left for pt to call back for results. Zulema Presley MA Can you please call the patient and let him know that I reviewed his lab results. A1c has come down from 6.8 to 6.5. Potassium was low, I would like to recheck labs this week to verify this. Lab order is in. HDL was low as well. I recommend lifestyle changes at home to help improve this. May consider adding on a fish oil daily. Try to incorporate healthy fats in the diet such as olive oil, avocado, and fish. Try to get some form of exercise. Thyroid and testosterone testing was normal. Please let me know if he has any questions. Thank you. China Torres APRN.AKBAR documented in this encounter [facility] 10-04-2022 Miscellaneous Notes Patient asking provider to send short supply paxil to [facility]. Patient still waiting on mail order and has been without medication for 3 days. Pended. documented in this encounter [facility] 08-02-2022 Miscellaneous Notes 30 days sent local as requested. The following approved medication requests have been transmitted electronically. Requested Prescriptions Pending Prescriptions Disp Refills glimepiride (AMARYL) 4 mg tablet 30 tablet 1 Sig: TAKE 1/2 TABLET DAILY WITH BREAKFAST PARoxetine (PAXIL) 40 mg tablet 30 tablet 1 Sig: Take 1 tablet by mouth once daily. levothyroxine (SYNTHROID) 150 mcg tablet 30 tablet 1 Sig: TAKE 1 TABLET DAILY ON AN EMPTY STOMACH FOR THYROID cetirizine (ZYRTEC) 10 mg tablet 30 tablet 1 Sig: Take 1 tablet by mouth once daily. atorvastatin (LIPITOR) 80 mg tablet 30 tablet 1 Sig: TAKE 1 TABLET DAILY AT BEDTIME FOR CHOLESTEROL hydroCHLOROthiazide 12.5 mg capsule 30 capsule 1 Sig: Take 1 capsule by mouth once daily. Cholecalciferol, Vitamin D3, 50 mcg (2,000 unit) cap 30 capsule 1 Sig: Take 1 capsule by mouth once daily. João Negron APRN.AKBAR Pt needs 30 day supply for now. Will call back for 90 day supplies. He will be out soon so needs some sent to local pharmacy first. Recently changed jobs so he missed a previous appt. Is scheduled for next appt in September. Patient has been identified by name and date of : Yes Last office visit in this department: 01/25/2022 next appt 09/23/22 RX INSTRUCTIONS: Patient aware RX will be sent to pharmacy. No need to notify patient. Patient phones requesting refills as follows: Requested Prescriptions Pending Prescriptions Disp Refills glimepiride (AMARYL) 4 mg tablet 90 tablet 3 Sig: TAKE 1/2 TABLET DAILY WITH BREAKFAST PARoxetine (PAXIL) 40 mg tablet 90 tablet 3 Sig: Take 1 tablet by mouth once daily. levothyroxine (SYNTHROID) 150 mcg tablet 90 tablet 3 Sig: TAKE 1 TABLET DAILY ON AN EMPTY STOMACH FOR THYROID cetirizine (ZYRTEC) 10 mg tablet 90 tablet 3 Sig: Take 1 tablet by mouth once daily. atorvastatin (LIPITOR) 80 mg tablet 90 tablet 3 Sig: TAKE 1 TABLET DAILY AT BEDTIME FOR CHOLESTEROL hydroCHLOROthiazide 12.5 mg capsule 90 capsule 3 Sig: Take 1 capsule by mouth once daily. Cholecalciferol, Vitamin D3, 50 mcg (2,000 unit) cap 90 capsule 3 Sig: Take 1 capsule by mouth once daily. Please review and advise. Christine Anderson documented in this encounter [facility] 02-18-2022 Miscellaneous Notes The following approved medication requests have been transmitted electronically. Requested Prescriptions Pending Prescriptions Disp Refills ondansetron (ZOFRAN) 4 mg tablet 30 tablet 3 Sig: Take 1 tablet by mouth every 8 hours as needed. João Negron APRN.CNP Patient has been identified by name and date of : Yes Patient phones for refill(s): Requested Prescriptions Pending Prescriptions Disp Refills ondansetron (ZOFRAN) 4 mg tablet 30 tablet 3 Sig: Take 1 tablet by mouth every 8 hours as needed. Date of last office visit with pcp: 01-25-22. Next appt: 4-18-23 Last 2 Encounter Wt Readings: Date: Wt: 01/25/2022 81.2 kg (179 lb) 09/09/2021 80.4 kg (177 lb 3.2 oz) Previous labs/tests for medication: Blood Pressure: BUN (mg/dL) Date Value 08/06/2021 18 06/22/2020 20 Sodium (mmol/L) Date Value 08/06/2021 139 06/22/2020 140 Last 1 Encounter BP Readings: Date: BP: 01/25/2022 130/74 Liver Function: ALT (U/L) Date Value 08/06/2021 15 06/22/2020 26 AST (U/L) Date Value 08/06/2021 19 06/22/2020 17 Please advise. Thank you. Fior Santiago RN documented in this encounter [facility] 02-11-2022 Miscellaneous Notes The following approved medication requests have been transmitted electronically. Requested Prescriptions Signed Prescriptions Disp Refills Blood-Glucose Meter 1 Each 0 Sig: Test One time a day. Insulin Dep? No E11.9 DM 2 Blood Glucose Control, Normal soln 1 Each 5 Sig: Test controls as needed. blood sugar diagnostic (BLOOD GLUCOSE TEST) test strip 50 Strip 11 Sig: Test blood sugar(s) 1 times daily. Dx: Type 2 DM - Controlled E11.9 Insulin: No Lancets lancets 100 Each 11 Sig: Test blood sugar(s) 1 times daily. Dx: Type 2 DM - Controlled E11.9 Insulin: No China Torres APRN.CNP Call to [facility] at 9:29 am, [place]. Pets are family tooe. Write Rx for Generic Glucometer, test strips, lancets and testing instructions. Updated pt, will route to Provider. Notify pt once sent in. Beal Pack Ma documented in this encounter [facility] 01-28-2022 Miscellaneous Notes The following approved medication requests have been transmitted electronically. Requested Prescriptions Pending Prescriptions Disp Refills Blood-Glucose Meter (FREESTYLE FREEDOM LITE) monitoring kit 1 Each 0 Si Each as needed for up to 1 day. João Negron APRN.CNP Pt called and states he needs a prescription sent to the local pharmacy for Freestyle, [place] Lite Meter. [facility] sending him the supplies for this but does not carry the meter. [facility] Patient has been identified by name and date of : Yes Patient phones for refill(s): Requested Prescriptions Pending Prescriptions Disp Refills Blood-Glucose Meter (FREESTYLE FREEDOM LITE) monitoring kit 1 Each 0 Si Each as needed for up to 1 day. Date of last office visit in primary care: 02/25/22 Last 2 Encounter Wt Readings: Date: Wt: 01/25/2022 81.2 kg (179 lb) 09/09/2021 80.4 kg (177 lb 3.2 oz) Previous labs/tests for medication: Diabetes: Hemoglobin A1C (%) Date Value 08/06/2021 6.8 06/22/2020 6.5 12/26/2018 6.3 Thank you. Yasmine Dumont LPN documented in this encounter [facility] 11-07-2021 Miscellaneous Notes Patient cancelled 10/29 then rescheduled & no showed 10/30. Sarah Kimble MA Patient is scheduled to see Mara Randall on 10/29/2021 with a dx of gastroparesis. This is not a dx that Mara treats. Patient needs to be scheduled with Dr. Aviles in the gastroparesis clinic. Attempted to notify but no answer and unable to leave a message. documented in this encounter [facility] 10-16-2021 Miscellaneous Notes Last office visit: 08/07/21 F/u scheduled: none Needs to establish care with a new provider. Zulema Presley Ma documented in this encounter [facility] 09-03-2021 Instructions Gina Antonio APRN.AKBAR - 09/03/2021 10:49 AM EDT covid test ordered You will be notified in 24 -48 hours, results available on [facility] Home isolation until covid results are back Rest, increase water intake Motrin or Tylenol as needed for fever or pain. Salt water gargles, chloraseptic spray or lozenges as needed for sore throat. Warm beverages, honey. Nasal saline spray as needed Cool mist humidifier at night Tylenol (generic acetaminophen) 500 mg-2 tabs every 8 hrs. as needed for fever and aches Ibuprofen 600 mg (3-200mg tablets) every 6 hours -Mucinex (generic is fine) Guaifenesin 1200 mg twice daily to help with cough and to thin out mucus Will call with chest xray and further treatment * Seek medical care immediately, call 911, go to ER if you have chest pain, difficulty breathing, shortness of breath, inability to swallow. documented in this encounter [facility] 09-03-2021 History of Presen t illness Narrative Radiology Service Progress Note PATIENT NAME: Jairo Coburn DATE OF SERVICE: September 03, 2021 TIME: 10:01 AM PATIENT IDENTITY VERIFICATION COMPLETED USING TWO (2) IDENTIFIERS: Name and Date of confirmed by patient verbally. FALL SCREENING: Has the patient had 2 falls in the last year or 1 fall with injury or currently using an Ambulatory Assistive Device (Walker, Cane, Wheelchair, Crutches, etc.)? No PATIENT GENDER DATA: Male PATIENT RELEVANT IMPLANT DATA REVIEWED: Not Applicable RADIOLOGY DEPARTMENT: General X-ray: Exam(s) Completed: Chest X-Ray PERIPHERAL IV DATA: Not applicable SIGNED BY: RT Dmitriy(R) September 03, 2021 10:01 AM documented in this encounter [facility] 09-03-2021 History of Presen t illness Narrative Subjective The history is provided by the patient. No photo engraver was used. HPI Jairo Coburn is a 61 year old male who presents today for CC of cough an dchest congestion and sore throat for 6 days. He feels it is more in chest. He has used OTC alkaselter, tylenol, ibuprofen with short term relief. He has not tested for covid, possible exposure. BP 122/76 Pulse 66 Temp 36.8 C (98.3 F) Resp 16 Wt 80.3 kg (177 lb) SpO2 98% BMI 28.57 kg/m Social History Tobacco Use Smoking status: Former Smoker Packs/day: 0.25 Years: 2.00 Pack years: 0.50 Smokeless tobacco: Current User Types: Chew Tobacco comment: quit smoking late Vaping Use Vaping Use: Never used Substance Use Topics Alcohol use: No Drug use: No PAST MEDICAL HISTORY Diagnosis Date Abdominal pain, right upper quadrant Allergic rhinitis due to other allergen Bipolar I disorder (HCC) 06/29/2018 Cervical muscle strain 11/08/2010 Degenerative arthritis of cervical spine 06/23/2012 Diarrhea Fibromyalgia 08/10/2020 GERD (gastroesophageal reflux disease) GI bleed Heart palpitations 07/01/2011 HTN (hypertension) Hyperlipidemia LDL goal < 100 08/13/2010 Lumbar degenerative disc disease 02/17/2012 Lumbar radiculopathy 02/20/2017 RLE Nausea alone Obstructive sleep apnea treated with BiPAP 01/01/2016 01/01/16: pressure 5-15 Other postablative hypothyroidism Pulmonary embolism (HCC) 08/08/2010 SI joint arthritis 01/17/2014 Thyrotoxicosis without mention of goiter or other cause, without mention of thyrotoxic crisis or storm Type II or unspecified type diabetes mellitus without mention of complication, not stated as uncontrolled 02/02/2012 I have confirmed and edited as necessary, the [facility] Review of Systems Constitutional: Negative for chills, fever and malaise/fatigue. HENT: Positive for congestion. Negative for ear pain, sinus pain and sore throat. Respiratory: Positive for cough. Negative for sputum production, shortness of breath and wheezing. Cardiovascular: Negative for chest pain. Gastrointestinal: Negative for abdominal pain, diarrhea, nausea and vomiting. Musculoskeletal: Negative for myalgias. Neurological: Negative for headaches. Objective Physical Exam Vitals and nursing note reviewed. HENT: Head: Normocephalic and atraumatic. Right Ear: Tympanic membrane, ear canal and external ear normal. Left Ear: Tympanic membrane, ear canal and external ear normal. Nose: Mucosal edema, congestion and rhinorrhea present. Right Sinus: No maxillary sinus tenderness or frontal sinus tenderness. Left Sinus: No maxillary sinus tenderness or frontal sinus tenderness. Mouth/Throat: Pharynx: Uvula midline. Posterior oropharyngeal erythema (mild) present. No oropharyngeal exudate. Tonsils: No tonsillar abscesses. Cardiovascular: Rate and Rhythm: Normal rate and regular rhythm. Heart sounds: Normal heart sounds. Pulmonary: Effort: Pulmonary effort is normal. Breath sounds: Examination of the right-upper field reveals rhonchi. Examination of the left-upper field reveals rhonchi. Rhonchi present. No decreased breath sounds, wheezing or rales. Lymphadenopathy: Head: Right side of head: No submental, submandibular, tonsillar or preauricular adenopathy. Left side of head: No submental, submandibular, tonsillar or preauricular adenopathy. Cervical: No cervical adenopathy. Right cervical: No superficial cervical adenopathy. Left cervical: No superficial cervical adenopathy. ASSESSMENT/PLAN: 1. Cough - ICD9: 786.2, ICD10: R05.9 (primary diagnosis) .tessalon perls - XR CHEST 2V FRONTAL/LAT RESULT: Lines, tubes, and devices: None. Lungs and pleura: No consolidation. No lung mass. No pleural effusion. No pneumothorax. Cardiomediastinal silhouette: Normal cardiomediastinal silhouette. Bones and soft tissues: Unremarkable. IMPRESSION: No acute radiographic abnormality. Interpreted by : SHANE ERA, MD - COVID WITH FLUA+B, ROUTINE 2. Chest congestion - ICD9: 786.9, ICD10: R09.89 mucinex Prednisone - XR CHEST 2V FRONTAL/LAT - COVID WITH FLUA+B, ROUTINE 3. Suspected COVID-19 virus infection - ICD9: V01.79, ICD10: Z20.822 Home isolation Testing ordered Comfort measures discussed - see patient instructions. When to seek higher level of care Notified in 24-48 hours with results, available on mychart - COVID WITH FLUA+B, ROUTINE Diagnosis and treatment plan were discussed and questions were answered to the patient's satisfaction. Pt acknowledged understanding of concepts and follow up plan. Specific signs and symptoms that would indicate the need for higher level of care were discussed in detail warranting prompt ER evaluation. Gina Antonio APRN.AKBAR documented in this encounter [facility] 07-16-2021 Miscellaneous Notes Provided 3 month supply. Patient needs to follow up with me prior to medications running out. The following approved medication requests have been transmitted electronically. Pending Prescriptions Disp Refills EMPAGLIFLOZIN 25 MG TABLET 90 tablet 0 Sig: Take 1 tablet by mouth once daily. JANNA: No PAROXETINE 40 MG TABLET 90 tablet 3 Sig: Take 1 tablet by mouth once daily. JANNA: No ATORVASTATIN 80 MG TABLET 90 tablet 3 Sig: TAKE 1 TABLET DAILY AT BEDTIME FOR CHOLESTEROL JANNA: No METFORMIN 500 MG TABLET 180 tablet 3 Sig: Take 1 tablet by mouth twice daily with meals. JANNA: No LEVOTHYROXINE 150 MCG TABLET 90 tablet 3 Sig: TAKE 1 TABLET DAILY ON AN EMPTY STOMACH FOR THYROID JANNA: No HYDROCHLOROTHIAZIDE 12.5 MG CAPSULE 90 capsule 3 Sig: Take 1 capsule by mouth once daily. JANNA: No CHOLECALCIFEROL (VITAMIN D3) 50 MCG (2,000 UNIT) CAPSULE 90 capsule 3 Sig: Take 1 capsule by mouth once daily. JANNA: No CETIRIZINE 10 MG TABLET 90 tablet 3 Sig: Take 1 tablet by mouth once daily. JANNA: No MONTELUKAST 10 MG TABLET 90 tablet 0 Sig: Take 1 tablet by mouth daily at bedtime. JANNA: No LISINOPRIL 10 MG TABLET 90 tablet 0 Sig: Take 1 tablet by mouth once daily. JANNA: No GLIMEPIRIDE 4 MG TABLET 90 tablet 0 Sig: TAKE 1/2 TABLET DAILY WITH BREAKFAST JANNA: No XYOSTED 75 MG/0.5 ML SUBCUTANEOUS AUTO-INJECTOR 4 Each 2 Sig: Inject 75 mg subcutaneously one time a week for 90 days. KAYLEE Class: C-III JANNA: No BUPROPION XL 150 MG TAB 90 tablet 0 Sig: Take 1 tablet by mouth once daily. JANNA: No Slim Hurst APRN.JULIANNE WEATHERS Patient phones requesting refills as follows: Pending Prescriptions Disp Refills EMPAGLIFLOZIN 25 MG TABLET 90 tablet 3 Sig: Take 1 tablet by mouth once daily. JANNA: No PAROXETINE 40 MG TABLET 90 tablet 3 Sig: Take 1 tablet by mouth once daily. JANNA: No ATORVASTATIN 80 MG TABLET 90 tablet 3 Sig: TAKE 1 TABLET DAILY AT BEDTIME FOR CHOLESTEROL JANNA: No METFORMIN 500 MG TABLET 180 tablet 3 Sig: Take 1 tablet by mouth twice daily with meals. JANNA: No LEVOTHYROXINE 150 MCG TABLET 90 tablet 3 Sig: TAKE 1 TABLET DAILY ON AN EMPTY STOMACH FOR THYROID JANNA: No HYDROCHLOROTHIAZIDE 12.5 MG CAPSULE 90 capsule 3 Sig: Take 1 capsule by mouth once daily. JANNA: No CHOLECALCIFEROL (VITAMIN D3) 50 MCG (2,000 UNIT) CAPSULE 90 capsule 3 Sig: Take 1 capsule by mouth once daily. JANNA: No CETIRIZINE 10 MG TABLET 90 tablet 3 Sig: Take 1 tablet by mouth once daily. JANNA: No MONTELUKAST 10 MG TABLET 90 tablet 3 Sig: Take 1 tablet by mouth daily at bedtime. JANNA: No LISINOPRIL 10 MG TABLET 90 tablet 3 Sig: Take 1 tablet by mouth once daily. JANNA: No GLIMEPIRIDE 4 MG TABLET 90 tablet 3 Sig: TAKE 1/2 TABLET DAILY WITH BREAKFAST JANNA: No XYOSTED 75 MG/0.5 ML SUBCUTANEOUS AUTO-INJECTOR Sig: Inject 75 mg subcutaneously one time a week for 30 days. KAYLEE Class: C-III JANNA: No BUPROPION XL 150 MG TAB 30 tablet 11 Sig: Take 1 tablet by mouth once daily. JANNA: No NERY-03/13/21 Labs-06/22/20 NOV-none Please review and advise. Teri Pacheco LPN documented in this encounter [facility] 05-28-2021 History of Presen t illness Narrative Radiology Service Progress Note PATIENT NAME: Jairo Coburn DATE OF SERVICE: May 28, 2021 TIME: 10:46 AM PATIENT IDENTITY VERIFICATION COMPLETED USING TWO (2) IDENTIFIERS: Name and Date of confirmed by patient verbally. FALL SCREENING: Has the patient had 2 falls in the last year or 1 fall with injury or currently using an Ambulatory Assistive Device (Walker, Cane, Wheelchair, Crutches, etc.)? No PATIENT GENDER DATA: Male PATIENT RELEVANT IMPLANT DATA REVIEWED: Not Applicable RADIOLOGY DEPARTMENT: General X-ray: Exam(s) Completed: Upper Extremity X-Ray(s): Humerus, right PERIPHERAL IV DATA: Not applicable SIGNED BY: RT Dmitriy(R) May 28, 2021 10:46 AM documented in this encounter [facility] 03-13-2021 History of Presen t illness Narrative Radiology Service Progress Note PATIENT NAME: Jairo Coburn DATE OF SERVICE: March 13, 2021 TIME: 8:00 AM PATIENT IDENTITY VERIFICATION COMPLETED USING TWO (2) IDENTIFIERS: Name and Date of confirmed by patient verbally. FALL SCREENING: Has the patient had 2 falls in the last year or 1 fall with injury or currently using an Ambulatory Assistive Device (Walker, Cane, Wheelchair, Crutches, etc.)? No PATIENT GENDER DATA: Male PATIENT RELEVANT IMPLANT DATA REVIEWED: Yes RADIOLOGY DEPARTMENT: General X-ray: Exam(s) Completed: Upper Extremity X-Ray(s): Wrist, left PERIPHERAL IV DATA: Not applicable SIGNED BY: RT Alma(R) March 13, 2021 8:00 AM documented in this encounter [facility] 02-10-2021 History of Presen t illness Narrative Radiology Service Progress Note PATIENT NAME: Jairo Coburn DATE OF SERVICE: February 10, 2021 TIME: 11:49 AM PATIENT IDENTITY VERIFICATION COMPLETED USING TWO (2) IDENTIFIERS: Name and Date of confirmed by patient verbally. FALL SCREENING: Has the patient had 2 falls in the last year or 1 fall with injury or currently using an Ambulatory Assistive Device (Walker, Cane, Wheelchair, Crutches, etc.)? No PATIENT GENDER DATA: Male PATIENT RELEVANT IMPLANT DATA REVIEWED: Not Applicable RADIOLOGY DEPARTMENT: General X-ray: Exam(s) Completed: Chest X-Ray PERIPHERAL IV DATA: Not applicable SIGNED BY: RT Gordon(R) February 10, 2021 11:49 AM documented in this encounter [facility] 06-22-2020 History of Presen t illness Narrative Radiology Service Progress Note PATIENT NAME: Jairo Coburn DATE OF SERVICE: June 22, 2020 TIME: 8:29 AM PATIENT IDENTITY VERIFICATION COMPLETED USING TWO (2) IDENTIFIERS: Name and Date of confirmed by patient verbally. FALL SCREENING: Has the patient had 2 falls in the last year or 1 fall with injury or currently using an Ambulatory Assistive Device (Walker, Cane, Wheelchair, Crutches, etc.)? No PATIENT GENDER DATA: Male PATIENT RELEVANT IMPLANT DATA REVIEWED: Not Applicable RADIOLOGY DEPARTMENT: General X-ray: Exam(s) Completed: Spine X-Ray(s): Lumbar AP / LAT / L5-S1 PERIPHERAL IV DATA: Not applicable SIGNED BY: RT Dmitriy June 22, 2020 8:29 AM documented in this encounter [facility] 01-31-2015 History of Past i llness Narrative Problem Noted Date Resolved Date Trigger thumb of right hand 01/31/2015 12/0 09/2015 HTN (hypertension) 01/20/2015 03/19/2016 Obstructive sleep apnea 04/28/2014 03/19/20 16 Opiate addiction 06/29/2013 01/09/2017 Therapeutic drug monitoring 06/23/201209/2015 Lesion of radial nerve 12/20/2010 5 Cervical muscle strain 11/08/2010 5 Abdominal pain, right upper quadrant 08/16/2010 02/28/2016 Pulmonary embolism 08/08/2010 04/28/2014 Lumbago 01/14/2007 04/28/2014 Thyrotoxicosis without menti on of goiter or other cause, without mention of thyrotoxic crisis or storm 04/28/19 15 GI bleed 04/28/2014 documented as of this encounter (statuses as of 07/17/2021) [facility] History of Past illness Narrative* Problem Noted Date Resolved Date Trigger thumb of right hand 01/31/201509/2015 HTN (hypertension) 01/20/2015 03/19/2016 Obstructive sleep apnea 04/28/2014 03/19/20 16 Opiate addiction 06/29/2013 01/09/2017 Therapeutic drug monitoring 06/23/201209/2015 Lesion of radial nerve 12/20/2010 5 Cervical muscle strain 11/08/2010 5 Abdominal pain, right upper quadrant 08/16/2010 02/28/2016 Pulmonary embolism 08/08/2010 04/28/2014 Lumbago 01/14/2007 04/28/2014 Thyrotoxicosis without menti on of goiter or other cause, without mention of thyrotoxic crisis or storm 04/28/19 15 GI bleed 04/28/2014 documented as of this encounter (statuses as of 09/03/2021) [facility] History of Past illness Narrative* Problem Noted Date Resolved Date Trigger thumb of right hand 01/31/201509/2015 HTN (hypertension) 01/20/2015 03/19/2016 Obstructive sleep apnea 04/28/2014 03/19/20 16 Opiate addiction 06/29/2013 01/09/2017 Therapeutic drug monitoring 06/23/201209/2015 Lesion of radial nerve 12/20/2010 5 Cervical muscle strain 11/08/2010 5 Abdominal pain, right upper quadrant 08/16/2010 02/28/2016 Pulmonary embolism 08/08/2010 04/28/2014 Lumbago 01/14/2007 04/28/2014 Thyrotoxicosis without menti on of goiter or other cause, without mention of thyrotoxic crisis or storm 04/28/19 15 GI bleed 04/28/2014 documented as of this encounter (statuses as of 10/16/2021) [facility] History of Past illness Narrative* Problem Noted Date Resolved Date Trigger thumb of right hand 01/31/201509/2015 HTN (hypertension) 01/20/2015 03/19/2016 Obstructive sleep apnea 04/28/2014 03/19/20 16 Opiate addiction 06/29/2013 01/09/2017 Therapeutic drug monitoring 06/23/201209/2015 Lesion of radial nerve 12/20/2010 5 Cervical muscle strain 11/08/2010 5 Abdominal pain, right upper quadrant 08/16/2010 02/28/2016 Pulmonary embolism 08/08/2010 04/28/2014 Lumbago 01/14/2007 04/28/2014 Thyrotoxicosis without menti on of goiter or other cause, without mention of thyrotoxic crisis or storm 04/28/19 15 GI bleed 04/28/2014 documented as of this encounter (statuses as of 11/07/2021) [facility] History of Past illness Narrative* Problem Noted Date Resolved Date Trigger thumb of right hand 01/31/201509/2015 HTN (hypertension) 01/20/2015 03/19/2016 Obstructive sleep apnea 04/28/2014 03/19/20 16 Opiate addiction 06/29/2013 01/09/2017 Therapeutic drug monitoring 06/23/201209/2015 Lesion of radial nerve 12/20/2010 5 Cervical muscle strain 11/08/2010 5 Abdominal pain, right upper quadrant 08/16/2010 02/28/2016 Pulmonary embolism 08/08/2010 04/28/2014 Lumbago 01/14/2007 04/28/2014 Thyrotoxicosis without menti on of goiter or other cause, without mention of thyrotoxic crisis or storm 04/28/19 15 GI bleed 04/28/2014 documented as of this encounter (statuses as of 01/28/2022) [facility] History of Past illness Narrative* Problem Noted Date Resolved Date Trigger thumb of right hand 01/31/201509/2015 HTN (hypertension) 01/20/2015 03/19/2016 Obstructive sleep apnea 04/28/2014 03/19/20 16 Opiate addiction 06/29/2013 01/09/2017 Therapeutic drug monitoring 06/23/201209/2015 Lesion of radial nerve 12/20/2010 5 Cervical muscle strain 11/08/2010 5 Abdominal pain, right upper quadrant 08/16/2010 02/28/2016 Pulmonary embolism 08/08/2010 04/28/2014 Lumbago 01/14/2007 04/28/2014 Thyrotoxicosis without menti on of goiter or other cause, without mention of thyrotoxic crisis or storm 04/28/19 15 GI bleed 04/28/2014 documented as of this encounter (statuses as of 02/11/2022) [facility] History of Past illness Narrative* Problem Noted Date Resolved Date Trigger thumb of right hand 01/31/201509/2015 HTN (hypertension) 01/20/2015 03/19/2016 Obstructive sleep apnea 04/28/2014 03/19/20 16 Opiate addiction 06/29/2013 01/09/2017 Therapeutic drug monitoring 06/23/201209/2015 Lesion of radial nerve 12/20/2010 5 Cervical muscle strain 11/08/2010 5 Abdominal pain, right upper quadrant 08/16/2010 02/28/2016 Pulmonary embolism 08/08/2010 04/28/2014 Lumbago 01/14/2007 04/28/2014 Thyrotoxicosis without menti on of goiter or other cause, without mention of thyrotoxic crisis or storm 04/28/19 15 GI bleed 04/28/2014 documented as of this encounter (statuses as of 02/18/2022) [facility] History of Past illness Narrative* Problem Noted Date Resolved Date Trigger thumb of right hand 01/31/201509/2015 HTN (hypertension) 01/20/2015 03/19/2016 Obstructive sleep apnea 04/28/2014 03/19/20 16 Opiate addiction 06/29/2013 01/09/2017 Therapeutic drug monitoring 06/23/201209/2015 Lesion of radial nerve 12/20/2010 5 Cervical muscle strain 11/08/2010 5 Abdominal pain, right upper quadrant 08/16/2010 02/28/2016 Pulmonary embolism 08/08/2010 04/28/2014 Lumbago 01/14/2007 04/28/2014 Thyrotoxicosis without menti on of goiter or other cause, without mention of thyrotoxic crisis or storm 04/28/19 15 GI bleed 04/28/2014 documented as of this encounter (statuses as of 08/02/2022) [facility] History of Past illness Narrative* Problem Noted Date Resolved Date Trigger thumb of right hand 01/31/201509/2015 HTN (hypertension) 01/20/2015 03/19/2016 Obstructive sleep apnea 04/28/2014 03/19/20 16 Opiate addiction 06/29/2013 01/09/2017 Therapeutic drug monitoring 06/23/201209/2015 Lesion of radial nerve 12/20/2010 5 Cervical muscle strain 11/08/2010 5 Abdominal pain, right upper quadrant 08/16/2010 02/28/2016 Pulmonary embolism 08/08/2010 04/28/2014 Lumbago 01/14/2007 04/28/2014 Thyrotoxicosis without menti on of goiter or other cause, without mention of thyrotoxic crisis or storm 04/28/19 15 GI bleed 04/28/2014 documented as of this encounter (statuses as of 10/05/2022) [facility] History of Past illness Narrative* Problem Noted Date Resolved Date Trigger thumb of right hand 01/31/201509/2015 HTN (hypertension) 01/20/2015 03/19/2016 Obstructive sleep apnea 04/28/2014 03/19/20 16 Opiate addiction 06/29/2013 01/09/2017 Therapeutic drug monitoring 06/23/201209/2015 Lesion of radial nerve 12/20/2010 5 Cervical muscle strain 11/08/2010 5 Abdominal pain, right upper quadrant 08/16/2010 02/28/2016 Pulmonary embolism 08/08/2010 04/28/2014 Lumbago 01/14/2007 04/28/2014 Thyrotoxicosis without menti on of goiter or other cause, without mention of thyrotoxic crisis or storm 04/28/19 GI bleed 04/28/2014 documented as of this encounter (statuses as of 10/08/2022) [facility]10-[facility] History of Past illness Narrative* Problem Noted Date Resolved Date Trigger thumb of right hand 01/31/201509/2015 HTN (hypertension) 01/20/2015 03/19/2016 Obstructive sleep apnea 04/28/2014 03/19/20 16 Opiate addiction 06/29/2013 01/09/2017 Therapeutic drug monitoring 06/23/201209/2015 Lesion of radial nerve 12/20/2010 5 Cervical muscle strain 11/08/2010 5 Abdominal pain, right upper quadrant 08/16/2010 02/28/2016 Pulmonary embolism 08/08/2010 04/28/2014 Lumbago 01/14/2007 04/28/2014 Thyrotoxicosis without menti on of goiter or other cause, without mention of thyrotoxic crisis or storm 04/28/19 15 GI bleed 04/28/2014 documented as of this encounter (statuses as of 10/16/2022) [facility] History of Past illness Narrative* Problem Noted Date Diagnosed Date Resolved Date Trigger thumb of right hand 01/31/2015 03/19/2016 HTN (hypertension) 01/20/2015 6 Obstructive sleep apnea 04/28/201409/2015 Opiate addiction 06/29/2013 01/09/2017 Therapeutic drug monitoring 06/23/2012 03/19/2016 Lesion of radial nerve 12/20/201004/28 Cervical muscle strain 11/08/201004/28 Abdominal pain, right upper quadrant 08/16/2010 02/28/2016 Pulmonary embolism 08/08/2010 5 Lumbago 01/14/2007 04/28/2014 Thyrotoxicosis without menti on of goiter or other cause, without mention of thyrotoxic crisis or storm 04/28/2014 GI bleed 04/28/2014 documented as of this encounter (statuses as of 07/14/2023) [facility] note* Diagnosis Diabetes mellitus (HCC) Type II or unspecified type diabetes mellitus without mention of complication, not stated as uncontrolled Adjustment disorder with depressed mood Essential hypertension, benign Hypogonadism in male Fibromyalgia Mylagia and myositis, unspecified Chronic fatigue Other malaise and fatigue documented in this encounter [facility] note* Diagnosis Cough- Primary Chest congestion Other symptoms involving respiratory system and chest Suspected COVID-19 virus infection documented in this encounter [facility] note* Diagnosis Essential hypertension, benign Diabetes mellitus (HCC) Type II or unspecified type diabetes mellitus without mention of complication, not stated as uncontrolled documented in this encounter [facility] note* Diagnosis Type 2 diabetes mellitus without complication, without long-term current use of insulin (HCC)- Primary documented in this encounter [facility] note* Diagnosis Type 2 diabetes mellitus without complication, without long-term current use of insulin (HCC)- Primary documented in this encounter [facility]* Diagnosis Chronic nausea Nausea alone documented in this encounter [facility] note* Diagnosis Type 2 diabetes mellitus without complication, without long-term current use of insulin (HCC) Adjustment disorder with depressed mood documented in this encounter [facility]* Diagnosis Adjustment disorder with depressed mood documented in this encounter [facility]* Diagnosis Abnormal laboratory test- Primary Other abnormal clinical finding Hypokalemia Hypopotassemia documented in this encounter [facility] note* Diagnosis Diverticulosis- Primary Diverticulosis of colon (without mention of hemorrhage) Screening for colon cancer Special screening for malignant neoplasms, colon History of colonic polyps Personal history of colonic polyps documented in this encounter [facility] note* Diagnosis Type 2 diabetes mellitus without complication, without long-term current use of insulin (HCC) documented in this encounter [facility]* Diagnosis Allergic dermatitis- Primary Contact dermatitis and other eczema, due to unspecified cause documented in this encounter [facility]* Diagnosis Type 2 diabetes mellitus without complication, without long-term current use of insulin (HCC)- Primary Essential hypertension, benign Hyperlipidemia with target LDL less than 100 Other and unspecified hyperlipidemia Hypothyroidism, unspecified type Hypogonadism in male Adjustment disorder with depressed mood Osteoarthritis of cervical spine, unspecified spinal osteoarthritis complication status FATIMAH (obstructive sleep apnea) Obstructive sleep apnea (adult) (pediatric) GERD without esophagitis Esophageal reflux Acute left-sided low back pain with left-sided sciatica Gastroparesis Chronic nausea Nausea alone documented in this encounter [facility]* Diagnosis Pain, dental- Primary Unspecified disorder of the teeth and supporting structures documented in this encounter [facility]* Diagnosis Puncture wound Open wound(s) (multiple) of unspecified site(s), without mention of complication documented in this encounter [facility] note* Diagnosis Cough Chest congestion Other symptoms involving respiratory system and chest documented in this encounter [facility]* Diagnosis Left wrist pain Pain in joint, forearm documented in this encounter [facility]* Diagnosis Cough documented in this encounter [facility] note* Diagnosis Acute left-sided low back pain with left-sided sciatica Fall due to slipping on ice or snow, initial encounter documented in this encounter [facility]* Diagnosis URI, acute- Primary Acute upper respiratory infections of unspecified site Acute cough Flu Influenza with other respiratory manifestations Acute cough documented in this encounter [facility] note* Diagnosis Acute cough documented in this encounter [facility] noteNo assessment information availableHealth[facility] Work Phone: Recox [facility]ett for referral (narrative)* Diagnostic Procedure Only (Urgent) - Closed Specialty Diagnoses / Procedures Referred By Contac t Referred To Contact XR IMAGING Diagnoses Puncture wound Procedures XR FOOT GENERAL 3V AP/LAT/OBL LEFT RADEX FOOT COMPLETE MINIMUM 3 VIEWS Shara Lynn APRN.CNP [address] [place] [address] Xr Imaging [facility]95 Referral ID Status Reason Start Date Expiration Date V isits Requested Visits Authorized [id number] Closed Auto-Generate d Referral 01/08/2023 02/07/2024 1 1 [facility] for referral (narrative)* Diagnostic Procedure Only (Routine) - Closed Specialty Diagnoses / Procedures Referred By Contac t Referred To Contact XR IMAGING Diagnoses Left wrist pain Procedures XR WRIST GENERAL 3V PA/LAT/OBL LEFT X-RAY WRIST COMPLET MIN 3 VIEWS Slim Hurst APRN.CNP, DNP [address] [place] [address] [place] [address] Referral ID Status Reason Start Date Expiration Date V isits Requested Visits Authorized [id number] Closed Auto-Generate d Referral 03/13/2021 04/12/2022 1 1 [facility] for referral (narrative)* Diagnostic Procedure Only (Routine) - Closed Specialty Diagnoses / Procedures Referred By Contac t Referred To Contact XR IMAGING Diagnoses Acute left-sided low back pain with left-sided sciatica Fall due to slipping on ice or snow, initial encounter Procedures XR LUMBAR GENERAL 3V AP/LAT/L5-S1 X-RAY L-S SPINE AP/LATERAL Slim Hurst APRN.CNP, JULIANNE [address] [place] [address] [place] [address] Referral ID Status Reason Start Date Expiration Date V isits Requested Visits Authorized [id number] Closed Auto-Generate d Referral 06/22/2020 07/22/2021 3 3 [facility] for referral (narrative)No reason for referral information availableHealth[facility] Work Phone: reason for visit Narrative* Diagnostic Procedure Only (Urgent) - Closed Specialty Diagnoses / Procedures Referred By Contac t Referred To Contact XR IMAGING Diagnoses Puncture wound Procedures XR FOOT GENERAL 3V AP/LAT/OBL LEFT RADEX FOOT COMPLETE MINIMUM 3 VIEWS Shara Lynn APRN.AKBAR [address] [place] [address] [place] [address] Referral ID Status Reason Start Date Expiration Date V isits Requested Visits Authorized [id number] Closed Auto-Generate d Referral 01/08/2023 02/07/2024 1 1 [facility] for visit Narrative* Diagnostic Procedure Only (Routine) - Closed Specialty Diagnoses / Procedures Referred By Contac t Referred To Contact XR IMAGING Diagnoses Left wrist pain Procedures XR WRIST GENERAL 3V PA/LAT/OBL LEFT X-RAY WRIST COMPLET MIN 3 VIEWS Slim Hurst, WIRE FRAME LAMPSHADE MAKER.AKBAR, JULIANNE [address] [place] [address] [place] [address] Referral ID Status Reason Start Date Expiration Date V isits Requested Visits Authorized [id number] Closed Auto-Generate d Referral 03/13/2021 04/12/2022 1 1 [facility] for visit Narrative* Diagnostic Procedure Only (Urgent) - Closed Specialty Diagnoses / Procedures Referred By Contac t Referred To Contact XR IMAGING Diagnoses Right arm pain Procedures XR HUMERUS 2V AP/LAT RIGHT RADEX HUMERUS MINIMUM 2 VIEWS Blas Mares WIRE FRAME LAMPSHADE MAKER.LOGISTICS TECH [address] [place] [address] [place] [address] Referral ID Status Reason Start Date Expiration Date V isits Requested Visits Authorized [id number] Closed Auto-Generate d Referral 05/28/2021 06/27/2022 1 1 [facility] for visit Narrative* Diagnostic Procedure Only (Routine) - Closed Specialty Diagnoses / Procedures Referred By Contac t Referred To Contact XR IMAGING Diagnoses Acute left-sided low back pain with left-sided sciatica Fall due to slipping on ice or snow, initial encounter Procedures XR LUMBAR GENERAL 3V AP/LAT/L5-S1 X-RAY L-S SPINE AP/LATERAL Slim Hurst, WIRE FRAME LAMPSHADE MAKER.AKBAR, JULIANNE [address] [place] [address] [place] [address] Referral ID Status Reason Start Date Expiration Date V isits Requested Visits Authorized [id number] Closed Auto-Generate d Referral 06/22/2020 07/22/2021 3 3 [facility] Summary Purpose Family History No Family History Records Found Relationship Condition Age at Onset Recorded Date/T maged mother Diabetes mellitus Unknown sister Diabetes mellitus Unknown brother Diabetes mellitus Unknown grandfather Cardiac disease Unknown grandmother Cardiac disease Unknown Advance Directives No Advanced Directives Records FoundDocuments on File Type Date 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 Advance Directive(s) Advance Directive(s) 01/06/2018 12:25 PM Advance Directive(s) 03/27/2016 12:26 PM Health Concerns Infection Onset Date Last Indicated Resolved Time COVID-19 Rule-Out 09/03/2021 09/03/2021 Chief Complaint and Reason for Visit Chief Complaint Admit Date COLONOSCOPY September 22, 2024 2:15 pm Additional Source Comments (unrecognized sect ion and content) No Status Records FoundNo Status Records FoundNo Status Records FoundNo Status Records Found INFORMATION SOURCE (unrecogn ized section and content) DATE CREATED AUTHOR 04/12/2018 [facility] DATE CREATED AUTHOR AUTHOR'S ORGANIZ ATION 09/03/2018 [facility] DATE CREATED AUTHOR AUTHOR'S ORGANIZ ATION 01/18/2025 [facility] DATE CREATED AUTHOR AUTHOR'S ORGANIZ ATION 02/17/2025 [facility] Source Comments (unrecognize d section and content) In the event this informatio n is protected by the Federal Confidentiality of Alcohol and Drug Abuse Patient Records regulations: The Federal rules restrict any use of the information to criminally investigate or prosecute any alcohol or drug abuse patient.[facility] Hospital[facility] the event this information is protected by the Federal Confidentiality of Alcohol and Drug Abuse Patient Records regulations: The Federal rules restrict any use of the information to criminally investigate or prosecute any alcohol or drug abuse patient.[facility] the event this information is protected by the Federal Confidentiality of Alcohol and Drug Abuse Patient Records regulations: The Federal rules restrict any use of the information to criminally investigate or prosecute any alcohol or drug abuse patient.[facility] Hospital[facility] the event this information is protected by the Federal Confidentiality of Alcohol and Drug Abuse Patient Records regulations: The Federal rules restrict any use of the information to criminally investigate or prosecute any alcohol or drug abuse patient.[facility] the event this information is protected by the Federal Confidentiality of Alcohol and Drug Abuse Patient Records regulations: The Federal rules restrict any use of the information to criminally investigate or prosecute any alcohol or drug abuse patient.[facility] HospitalIn the event this information is protected by the Federal Confidentiality of Alcohol and Drug Abuse Patient Records regulations: The Federal rules restrict any use of the information to criminally investigate or prosecute any alcohol or drug abuse patient.[facility] HospitalIn the event this information is protected by the Federal Confidentiality of Alcohol and Drug Abuse Patient Records regulations: The Federal rules restrict any use of the information to criminally investigate or prosecute any alcohol or drug abuse patient.[facility] HospitalIn the event this information is protected by the Federal Confidentiality of Alcohol and Drug Abuse Patient Records regulations: The Federal rules restrict any use of the information to criminally investigate or prosecute any alcohol or drug abuse patient.[facility] HospitalIn the event this information is protected by the Federal Confidentiality of Alcohol and Drug Abuse Patient Records regulations: The Federal rules restrict any use of the information to criminally investigate or prosecute any alcohol or drug abuse patient.[facility] HospitalIn the event this information is protected by the Federal Confidentiality of Alcohol and Drug Abuse Patient Records regulations: The Federal rules restrict any use of the information to criminally investigate or prosecute any alcohol or drug abuse patient.[facility] HospitalIn the event this information is protected by the Federal Confidentiality of Alcohol and Drug Abuse Patient Records regulations: The Federal rules restrict any use of the information to criminally investigate or prosecute any alcohol or drug abuse patient.[facility] Hospital[facility] the event this information is protected by the Federal Confidentiality of Alcohol and Drug Abuse Patient Records regulations: The Federal rules restrict any use of the information to criminally investigate or prosecute any alcohol or drug abuse patient.[facility] HospitalIn the event this information is protected by the Federal Confidentiality of Alcohol and Drug Abuse Patient Records regulations: The Federal rules restrict any use of the information to criminally investigate or prosecute any alcohol or drug abuse patient.[facility] HospitalIn the event this information is protected by the Federal Confidentiality of Alcohol and Drug Abuse Patient Records regulations: The Federal rules restrict any use of the information to criminally investigate or prosecute any alcohol or drug abuse patient.[facility] the event this information is protected by the Federal Confidentiality of Alcohol and Drug Abuse Patient Records regulations: The Federal rules restrict any use of the information to criminally investigate or prosecute any alcohol or drug abuse patient.[facility] HospitalIn the event this information is protected by the Federal Confidentiality of Alcohol and Drug Abuse Patient Records regulations: The Federal rules restrict any use of the information to criminally investigate or prosecute any alcohol or drug abuse patient.[facility] HospitalIn the event this information is protected by the Federal Confidentiality of Alcohol and Drug Abuse Patient Records regulations: The Federal rules restrict any use of the information to criminally investigate or prosecute any alcohol or drug abuse patient.[facility] HospitalIn the event this information is protected by the Federal Confidentiality of Alcohol and Drug Abuse Patient Records regulations: The Federal rules restrict any use of the information to criminally investigate or prosecute any alcohol or drug abuse patient.[facility] HospitalIn the event this information is protected by the Federal Confidentiality of Alcohol and Drug Abuse Patient Records regulations: The Federal rules restrict any use of the information to criminally investigate or prosecute any alcohol or drug abuse patient.[facility] HospitalIn the event this information is protected by the Federal Confidentiality of Alcohol and Drug Abuse Patient Records regulations: The Federal rules restrict any use of the information to criminally investigate or prosecute any alcohol or drug abuse patient.[facility] HospitalIn the event this information is protected by the Federal Confidentiality of Alcohol and Drug Abuse Patient Records regulations: The Federal rules restrict any use of the information to criminally investigate or prosecute any alcohol or drug abuse patient.[facility] HospitalIn the event this information is protected by the Federal Confidentiality of Alcohol and Drug Abuse Patient Records regulations: The Federal rules restrict any use of the information to criminally investigate or prosecute any alcohol or drug abuse patient.[facility] HospitalIn the event this information is protected by the Federal Confidentiality of Alcohol and Drug Abuse Patient Records regulations: The Federal rules restrict any use of the information to criminally investigate or prosecute any alcohol or drug abuse patient.[facility] HospitalIn the event this information is protected by the Federal Confidentiality of Alcohol and Drug Abuse Patient Records regulations: The Federal rules restrict any use of the information to criminally investigate or prosecute any alcohol or drug abuse patient.[facility] Reason for Visit (unrecogniz ed section and content) Reason Onset Date Comments Refill Request 07/14/2021 Reason Comments Nasal Congestion drainage, chest leilani estion, bodyaches, cough and headache x 6 days Reason Comments Refill Request Reason Comments Appointment Rescheduled Reason Onset Date Comments Refill Request 01/26/2022 Glucose Meter Reason Onset Date Comments Refill Request 02/18/2022 Reason Onset Date Comments Refill Request 10/04/2022 Reason Comments Results Labs Reason Comments Consult SCREENING FOR COLON CANCER Specialty Diagnoses / Procedures Referred By Contac t Referred To Contact General Surgery / GENERAL SURGERY Diagnoses Screening for colon cancer History of colonic polyps Procedures CONSULT TO GENERAL SURGERY OFFICE/OUTPATIENT [facility] 60-74 MINUTES Cindi Nunez MD [address] [place] [address] [facility] [address] [place] [address] Referral ID Status Reason Start Date Expiration Date V isits Requested Visits Authorized [id number] Closed PCP Requested Referral 09/24/2022 04/13/2023 1 1 Reason Onset Date Comments Refill Request 07/12/2023 Reason Comments Rash Rash on lower legs x 2 weeks Reason Comments F/U 6 Month Specialty Diagnoses / Procedures Referred By Rashaun macedo Referred To Contact FAMILY MEDICINE Diagnoses 6 mo follow up Procedures follow up Cindi Nunez MD [address] [place] [address] Cindi Nunez MD [address] [place] [address] Referral ID Status Reason Start Date Expiration Date Visits Requested Visits Authorized [id number] Pending Review OON/Self Pay Override 3 07/08/2024 1 1 Reason Comments Dental Problem Upper left tooth abs cess x 1 day Reason Comments Patient Update Patient Request Reason Comments Cough congestion, headache , bodyaches, fever x last night Care Teams (unrecognized sec tion and content) Foundry Technician Relationship Specialty Start Date End Date Slim Hurst, WIRE FRAME LAMPSHADE MAKER.JULIANNE WEATHERS [address] [place] [address] PCP - General Family Practice 03/13/21 Foundry Technician Relationship Specialty Start Date End Date Slim Hurst, VICENTE.JULIANNE WEATHERS [address] [place] [address] PCP - General Family Practice 03/13/21 Foundry Technician Relationship Specialty Start Date End Date Slim Hurst, WIRE FRAME LAMPSHADE MAKER.JULIANNE WEATHERS [address] [place] [address] PCP - General Family Practice 03/13/21 Foundry Technician Relationship Specialty Start Date End Date Slim Hurst, WIRE FRAME LAMPSHADE MAKER.JULIANNE WEATHERS [address] [place] [address] PCP - General Family Practice 03/13/21 Foundry Technician Relationship Specialty Start Date End Date Cindi Nunez MD [address] [facility] [place] [address] PCP - General Family Medicine 01/25/22 Foundry Technician Relationship Specialty Start Date End Date Cindi Nunez MD [address] [facility] [place] [address] PCP - General Family Medicine 01/25/22 Foundry Technician Relationship Specialty Start Date End Date Cindi Nunez MD [address] [facility] [place] [address] PCP - General Family Medicine 01/25/22 Foundry Technician Relationship Specialty Start Date End Date Cindi Nunez MD [address] [facility] [place] [address] PCP - General Family Medicine 01/25/22 Foundry Technician Relationship Specialty Start Date End Date Cindi Nunez MD [address] [facility] [place] [address] PCP - General Family Medicine 01/25/22 Foundry Technician Relationship Specialty Start Date End Date Cindi Nunez MD [address] [facility] [place] [address] PCP - General Family Medicine 01/25/22 Foundry Technician Relationship Specialty Start Date End Date Cindi Nunez MD [address] [facility] [place] [address] PCP - General Family Medicine 01/25/22 Foundry Technician Relationship Specialty Start Date End Date Cindi Nunez MD [address] [facility] [place] [address] PCP - General Family Medicine 01/25/22 Foundry Technician Relationship Specialty Start Date End Date Cindi Nunez MD [address] [facility] [place] [address] PCP - General Family Medicine 01/25/22 Foundry Technician Relationship Specialty Start Date End Date Cindi Nunez MD [address] [facility] [place] [address] PCP - General Family Medicine 01/25/22 Foundry Technician Relationship Specialty Start Date End Date Cindi Nunez MD [address] [facility] [place] [address] PCP - General Family Medicine 01/25/22 Foundry Technician Relationship Specialty Start Date End Date Cindi Nunez MD [address] [facility] [place] [address] PCP - General Family Medicine 01/25/22 Foundry Technician Relationship Specialty Start Date End Date Slim Hurst APRN.JULIANNE WEATHERS [address] [facility] [place] [address] PCP - General Family Medicine 03/13/21 01/24/22 Foundry Technician Relationship Specialty Start Date End Date Slim Hurst APRN.JULIANNE WEATHERS [address] [facility] [place] [address] PCP - General Family Medicine 03/13/21 01/24/22 Foundry Technician Relationship Specialty Start Date End Date Slim Hurst APRN.JULIANNE [facility] [address] [facility] [place] [address] PCP - General Family Medicine 03/13/21 01/24/22 Foundry Technician Relationship Specialty Start Date End Date Rolly Garduno III, MD PCP - General 09/25/06 03/12/21 Foundry Technician Relationship Specialty Start Date End Date Rolly Garduno III, MD PCP - General 09/25/06 03/12/21 Foundry Technician Relationship Specialty Start Date End Date Cindi Nunez MD [address] [place], [place] [id number] PCP - General Family Medicine 01/25/22 China Torres APRN.LOGISTICS TECH [address] [place], [place] [id number] [phone] [facility]National [facility] 03/21/24 João Negron APRN.LOGISTICS TECH [address] [place], [place] [id number] [facility] [facility]National [facility] 03/30/24 Foundry Technician Relationship Specialty Start Date End Date Cindi Nunez MD [address] [place] [address] PCP - General Family Medicine 01/25/22 China Torres WIRE FRAME LAMPSHADE MAKER.LOGISTICS TECH [address] [place] [address] [facility] 03/21/24 João Negron WIRE FRAME LAMPSHADE MAKER.LOGISTICS TECH [address] [place] [address] [facility] 03/30/24 Team Status: Active Member Role Status Dates Dr. Rolly Garduno III, MD Family Provider Active [facility] Primary Care Provider Active Team Status: Inactive Member Role Status Dates No Primary Care Physician Referring Provider Active Start: September 22, 2024 End: September 22, 2024 Dr. Irene Amanda MD Attending Provider Active Start: September 22, 2024 End: September 22, 2024 [facility] Primary Care Provider Active Start: September 22, 2024 End: September 22, 2024 Goals (unrecognized section and content) Goals may be documented in a n alternate section FOR RECORDS PERTAINING TO PATIENTS WHO ARE OR HAVE BEEN ENROLLED IN A CHEMICAL DEPENDENCY/SUBSTANCEABUSE PROGRAM, SOME INFORMATION MAY BE OMITTED. This clinical summary was aggregated from multiple sources. Caution should be exercised in using it in the provision of clinical care. This summary normalizes information from multiple sources, and as a consequence, information in this document may materially change the coding, format and clinical context of patient data. In addition, data may be omitted in some cases. CLINICAL DECISIONS SHOULD BE BASED ON THE PRIMARY CLINICAL RECORDS. [facility] [employer] [facility]. provides no warranty or guarantee of the accuracy or completeness of information in this document.
== END | disposition home or self-care (01) ==
LOC: US 07:38
PROVIDERS: Referring Provider Internal Medicine; Visit Provider Internal Medicine
DX: E03.9 Hypothyroidism, unspecified (principal)
CPT/HCPCS: 76536